=== PATIENT | female | born 1955 | race Caucasian/White ===

== ENCOUNTER 2016-03-19 17:56 | Inpatient (IN) ==
[2016-03-19] MEDS ORDERED: *HR* HYDROmorphone (PF) 1 MG/ML SYRINGE IV ONE (18:02)
[2016-03-19] MEDS ORDERED: Ketorolac 30 MG/ML VIAL IV ONE (18:02)
--- NOTE | 2016-03-19 18:04 | Emergency Department Note ---
Disposition Clinical Impression: Pneumonia Qualifiers: Pneumonia type: due to unspecified organism Laterality: bilateral Lung location : lower lobe of lung Qualified Code(s): J18.9 - Pneumonia, unspecified organism Thoracic back pain Qualifiers: Chronicity: acute Back pain laterality: bilateral Qualified Code(s): M54.6 - Pain in thoracic spine COPD (chronic obstructive pulmonary disease) Qualifiers: COPD type: COPD with acute lower respiratory infection Qualified Code(s): J44.0 - Chronic obstructive pulmonary disease with acute lower respiratory infection Disposition: Admitted As Inpatient Condition: Good Time of Disposition: 20:13 Back Pain HPI - General Chief Complaint: ED Back Pain/Injury Stated Complaint: back pain Time Seen by Provider: 03/19/16 18:01 Source: patient, EMS Mode of arrival: EMS Limitations: no limitations Nursing Notes Reviewed: Yes Vital Signs Reviewed: Yes - History of Present Illness Pt Subjective Complaint: back pain Onset (ago): hour(s) (Was present when she woke up this morning. She was fine when she went to bed.) Duration: constant Similar Symptoms Previously: No Location: thoracic spine Pain Severity: severe Quality: sharp Radiation: none Improves with: none Worsens with: movement, deep breaths/cough Context: other (Was fine when she went to bed. Awoke from sleep and pain was there. She does not note any injury.) Associated symptoms: Denies: numbness, weakness, fever, chills - Related Data Home Medications Medication Instructions Recorded Confirmed Albuterol Sulfate [Ventolin Hfa] 1 - 2 puff IH Q6H PRN 03/19/16 03/19/16 Alprazolam [Xanax 1 MG Tablet] 1 mg PO DAILY PRN 03/19/16 03/19/16 Fluticasone/Salmeterol [Advair Hfa 2 puff IH BID 03/19/16 03/19/16 230-21 Mcg Inhaler] Gabapentin [Neurontin] 300 mg PO TID 03/19/16 03/19/16 HydrOXYzine Pamoate [Vistaril] 25 mg PO TID PRN 03/19/16 03/19/16 Ibuprofen [Ibuprofen] 800 mg PO TID 03/19/16 03/19/16 Ipratropium/Albuterol Neb [Duoneb] 3 ml IH Q6HR 03/19/16 03/19/16 Losartan Potassium [Losartan 50 mg PO DAILY 03/19/16 03/19/16 Potassium] Metoprolol Tartrate [Lopressor] 50 mg PO BID 03/19/16 03/19/16 Oxygen 2 l .ROUTE AD 03/19/16 03/19/16 Roflumilast [Daliresp] 500 mcg PO DAILY 03/19/16 03/19/16 Allergies Allergy/AdvReac Type Severity Reaction Status Date / Time acetaminophen [From Vicodin] AdvReac Gastrointestinal Verified 03/19/16 23:42 Upset hydrocodone [From Vicodin] AdvReac Gastrointestinal Verified 03/19/16 23:42 Upset tramadol AdvReac Gastrointestinal Verified 03/19/16 23:42 Upset All systems ED: reviewed and negative except as stated. Constitutional: Denies: fever, chills ENT ED: Denies: ear pain, throat pain, congestion Cardiovascular: Denies: chest pain, palpitations Respiratory: Reports: dyspnea (But she thinks is because it hurts to breathe). Denies: cough Gastrointestinal: Denies: abdominal pain Musculoskeletal: Reports: back pain Integumentary: Denies: rash Past Medical History - Past Medical History Attestation: Yes The following information was validated with the patient. Source: patient, nursing notes reviewed Physical Exam - General Limitations: no limitations General appearance: alert, in distress (Seems to be in pain with breath and movement), obese - Head Head exam: atraumatic, normocephalic - Eye Eye exam: Present: normal appearance, PERRL - ENT ENT exam: normal exam, normal external ear exam - Neck Neck exam: Present: normal inspection, full ROM - Chest Chest inspection: Present: normal inspection, symmetric chest wall rise. Absent : tenderness - Respiratory Respiratory exam: Present: normal lung sounds bilaterally, wheezes (Faint and bilateral) - Cardiovascular Cardiovascular exam: Present: regular rate, normal rhythm, normal heart sounds - Abdominal Exam Abdominal exam: Present: soft, Non-Tender - Extremities Exam Extremities exam: Present: normal inspection, full ROM - Back Exam Back exam: Present: tenderness (Across upper back) - Neurological Exam Neurological exam: Present: alert, oriented X3 - Psychiatric Psychiatric exam: Present: normal affect, normal mood - Skin Skin exam: Present: warm, dry. Absent: rash Course Course Narrative: Patient is brought in with a complaint of shortness of breath and upper back pain. The story sounds like muscle skeletal back pain. She was fine when she went to bed but when she woke up she felt like her back was locked up. It hurt to breathe. Any movement causes increased pain. Pain is reproducible to palpation and with having her move here in the department. I order some pain medications for symptom relief and will reassess her breathing after the pain is controlled. Chest x-ray to rule out pneumothorax. EKG to assess cardiac issues. - Reevaluation(s) Reevaluation #1: Patient's feeling much better after pain medication. Breathing feels much better. Chest x-ray did not show any evidence of pneumothorax but there was some concern about pneumonia versus pulmonary edema. I went ahead and did a CT of the chest without contrast to delineate those abnormal chest x-ray findings. The patient is not presenting with with any obvious infectious disease symptoms. She is not having fevers or chills. She is having some cough but does not feel like instrument is worse than usual. She is a little bit more short of breath the usual but it is unclear as to whether that is not due to the pain of breathing. CAT scan however showed multilobar pneumonia. I entered into a sugar decision-making discussion with the patient. I talk with the patient about admission versus outpatient treatment as well as the risks and benefits of each. She says she has been through this a number of times and would just prefer to go home. So we will give her an IV dose of Levaquin and then discharge her to home on by mouth Levaquin. She was advised that if she is not better in 48 hours she has to come back and be seen at that time was to be admitted for treatment. She is also advised if she gets worse in any way before then that she has to come back right away and will need to be admitted. She is comfortable with that plan. She has breathing machine at home as well as home oxygen. Time: 20:09 Vital Signs Temperature 98.2 F 03/19/16 17:59 Pulse Rate 116 03/19/16 17:59 Respiratory Rate 26 03/19/16 17:59 Blood Pressure 112/54 03/19/16 17:59 O2 Sat by Pulse Oximetry 91 L 03/19/16 17:59 Temperature 97.5 F L 03/23/16 20:26 Pulse Rate 78 03/23/16 20:26 Respiratory Rate 16 03/23/16 20:54 Blood Pressure 168/88 03/23/16 20:26 O2 Sat by Pulse Oximetry 95 03/23/16 20:54 Oxygen Delivery Oxygen Delivery Nasal Cannula Back Pain/Injury - Medical Records Medical records reviewed: Yes I reviewed the patient's medical records. - Lab Data Result diagrams: 03/23/16 08:05 03/23/16 08:05 Lab Results 03/19/16 03/19/16 03/19/16 Range/Units 22:18 22:18 22:18 WBC 28.9 H (4.3-11.1) K/mcL RBC 5.25 H (3.82-4.97) M/mcL Hgb 16.5 H (11.5-15.4) g/dL Hct 50.0 H (35.3-44.9) % MCV 95.2 (83.0-100.0) fL MCH 31.4 (28.0-33.3) pg MCHC 33.0 (31.6-35.5) g/dL RDW 12.8 (11.5-14.5) % Plt Count 256 (140-400) K/mcL MPV 9.9 (9.4-12.4) fL Immature Gran % 6.0 H (0-4) % Seg Neutrophils % 83.4 % Lymphocytes % 3.3 % Monocytes % 6.9 % Eosinophils % 0.0 % Basophils % 0.4 % Neutrophils # 24.1 H (1.6-8.9) K/mcL Lymphocytes # 1.0 (0.6-4.6) K/mcL Monocytes # 2.0 H (0.0-1.3) K/mcL Eosinophils # 0.0 (0.0-0.6) K/mcL Basophils # 0.1 (0.0-0.2) K/mcL PT 13.4 H (9.4-12.1) Seconds INR 1.2 APTT (26.0-36.0) Seconds Sodium 138 (136-145) mEq/L Potassium 4.0 (3.5-4.5) mEq/L Chloride 109 (98-109) mEq/L Carbon Dioxide 20 (19-29) mEq/L BUN 16 (7-20) mg/dL Creatinine 1.37 H (0.57-1.11) mg/dL Est GFR ( Amer) 48 L (> 60) Est GFR (Non-Af Amer) 39 L (> 60) BUN/Creatinine Ratio 12 (6-26) Glucose 83 (70-99) mg/dL Calculated Osmolality 286 (280-300) Lactic Acid (0.5-2.2) mmol/L Calcium 9.4 (8.6-10.8) mg/dL Total Bilirubin 1.3 H (0.2-1.2) mg/dL AST 13 (5-34) Units/L ALT 14 (0-55) Units/L Alkaline Phosphatase 62 (38-126) Units/L Serum Total Protein 7.2 (6.0-8.3) g/dL Albumin 3.0 L (3.5-5.0) g/dL Globulin 4.2 H (2.4-3.5) g/dL Albumin/Globulin Ratio 0.7 L (1.1-2.2) 03/19/16 03/19/16 Range/Units 22:18 22:18 WBC (4.3-11.1) K/mcL RBC (3.82-4.97) M/mcL Hgb (11.5-15.4) g/dL Hct (35.3-44.9) % MCV (83.0-100.0) fL MCH (28.0-33.3) pg MCHC (31.6-35.5) g/dL RDW (11.5-14.5) % Plt Count (140-400) K/mcL MPV (9.4-12.4) fL Immature Gran % (0-4) % Seg Neutrophils % % Lymphocytes % % Monocytes % % Eosinophils % % Basophils % % Neutrophils # (1.6-8.9) K/mcL Lymphocytes # (0.6-4.6) K/mcL Monocytes # (0.0-1.3) K/mcL Eosinophils # (0.0-0.6) K/mcL Basophils # (0.0-0.2) K/mcL PT (9.4-12.1) Seconds INR APTT 39.3 H (26.0-36.0) Seconds Sodium (136-145) mEq/L Potassium (3.5-4.5) mEq/L Chloride (98-109) mEq/L Carbon Dioxide (19-29) mEq/L BUN (7-20) mg/dL Creatinine (0.57-1.11) mg/dL Est GFR ( Amer) (> 60) Est GFR (Non-Af Amer) (> 60) BUN/Creatinine Ratio (6-26) Glucose (70-99) mg/dL Calculated Osmolality (280-300) Lactic Acid 2.1 (0.5-2.2) mmol/L Calcium (8.6-10.8) mg/dL Total Bilirubin (0.2-1.2) mg/dL AST (5-34) Units/L ALT (0-55) Units/L Alkaline Phosphatase (38-126) Units/L Serum Total Protein (6.0-8.3) g/dL Albumin (3.5-5.0) g/dL Globulin (2.4-3.5) g/dL Albumin/Globulin Ratio (1.1-2.2) - Radiology Data Radiology results reviewed: Yes I reviewed the patient's radiology results. - EKG Data EKG attestation: Yes I reviewed and interpreted this EKG. EKG shows normal: sinus rhythm, axis, intervals, QRS complexes, ST-T waves Rate: tachycardia Interpretation: other (Sinus tachycardia without indication of ischemia) S.B.A.R. - S.B.A.R. Transition of Care: Patient signed out to me by Dr. Florez pending administration of antibiotics and disposition. See my note for further evaluation
[2016-03-19] MEDS ORDERED: Levofloxacin 750 MG/150 ML 750 MG/150 ML BAG IVPB ONE (20:13)
[2016-03-19] MEDS ORDERED: Ondansetron 4 MG/2 ML VIAL IV ONE (21:19)
[2016-03-19] MEDS ORDERED: 0.9 % Sodium Chloride 1,000 ML ONE ×2 (22:04→22:47)
[2016-03-19 22:27] LABS: Mean Platelet Volume 9.9 fL (9.4-12.4)
[2016-03-19 22:28] LABS: Basophils # 0.1 K/mcL (0.0-0.2); Basophils % 0.4 %; Hemoglobin 16.5 g/dL (11.5-15.4); Lymphocytes % 3.3 %; Mean Corpuscular Hemoglobin 31.4 pg (28.0-33.3); Mean Corpuscular Volume 95.2 fL (83.0-100.0); Monocytes % 6.9 %; Neutrophils # 24.1 K/mcL (1.6-8.9); Platelet Count 256 K/mcL (140-400); Red Blood Count 5.25 M/mcL (3.82-4.97); Red Cell Distribution Width 12.8 % (11.5-14.5); Segmented Neutrophils % 83.4 %
[2016-03-19 22:34] LABS: INR 1.2; Prothrombin Time 13.4 Seconds (9.4-12.1)
[2016-03-19 22:40] LABS: Albumin/Globulin Ratio 0.7 (1.1-2.2); Bilirubin,Total 1.3 mg/dL (0.2-1.2); Calcium 9.4 mg/dL (8.6-10.8); Globulin 4.2 g/dL (2.4-3.5); Total Protein 7.2 g/dL (6.0-8.3)
[2016-03-20] MEDS ORDERED: *HR* HYDROmorphone (PF) 1 MG/ML SYRINGE IVP ONE (00:32)
[2016-03-20] MEDS ORDERED: Ondansetron ODT 4 MG TAB.RAPDIS SL PRN (00:46)
[2016-03-20] MEDS ORDERED: Naloxone 0.4 MG/ML INJ IVP PRN (00:46)
--- NOTE | 2016-03-20 00:46 | Internal Med History&Physical ---
Date of Encounter: 03/20/16 Time of Encounter: 00:20 Assessment and Plan (1) Pneumonia Current visit: Yes Status: Acute Patient was given one dose of levofloxacin in the ED. Continue Levofloxacin Add Ceftriaxone Blood cultures drawn. (They were not ordered in the ED and were drawn after antibiotics were started). CT: multilobar pneumonia in the right lower and left lower lobes. WBC 28.9 Qualifiers: Pneumonia type: due to unspecified organism Laterality: bilateral Lung location: lower lobe of lung Qualified Code(s): J18.9 - Pneumonia, unspecified organism (2) COPD (chronic obstructive pulmonary disease) Current visit: Yes Status: Acute Acute on chronic respiratory failure with hypoxia. Acute exacerbation of COPD secondary to multilobar pneumonia. Patient is on 2L home oxygen. Continue oxygen supplementation. Solumedrol 40mg Q8hr Levofloxacin and ceftriaxone for pneumonia. Partial tachypnea is due to pain with inspiration. Pain control with morphine 2mg Q2hr as the patient has an allergy to acetaminophen and hydrocodone Qualifiers: COPD type: COPD with acute lower respiratory infection Qualified Code(s): J44.0 - Chronic obstructive pulmonary disease with acute lower respiratory infection (3) Sepsis Current visit: Yes Status: Acute Positive SIRS criteria with tachycardia >90 elevated respiratory rate >20 and WBC of 28.9. Source is pneumonia. Patient was given 2L fluid in the ED. History of CHF, unknown EF. Patient's chest XR demonstrates: mild pulmonary vascular congestion vs. pulmonary edema. Will hold additional fluids at this point for concerns of worsening pulmonary edema in the setting of pneumonia with COPD exacerbation and hypoxia. Qualifiers: Sepsis type: sepsis due to unspecified organism Qualified Code(s): A41.9 - Sepsis, unspecified organism (4) CHF (congestive heart failure) Current visit: Yes Status: Chronic Will hold additional fluids at this time. Unspecified type. Echocardiogram ordered. Qualifiers: Congestive heart failure type: unspecified congestive heart failure type Congestive heart failure chronicity: chronic Qualified Code(s): I50.9 - Heart failure, unspecified (5) Tobacco abuse Current visit: Yes Status: Acute Patient expressed trying to quit in the past and not being able to but has a willingness to try to quit again. Smoking cessation education ordered. Nicoderm patches ordered. (6) Thoracic back pain Current visit: Yes Status: Acute Pain control with morphine 2mg Q2HR pain was reproducible on exam. Patient expresses shallow breathing due to pain. Qualifiers: Chronicity: acute Back pain laterality: bilateral Qualified Code(s): M54.6 - Pain in thoracic spine (7) LIN (acute kidney injury) Current visit: Yes Status: Acute Elevated creatinine of 1.37 and no history of kidney disease. Patient received 2L fluids in the ED. Holding fluids at this time due to history of CHF and evidence of pulmonary edema on Xray. Will continue to monitor (8) DVT prophylaxis Current visit: Yes Status: Acute heparin 5000 units SQ Q8hr Internal Medicine - H&P: HPI Chief complaint: back pain Admitted From: Emergency Dept Plans for Post Hospital Care: Home History of present illness: Ms. Keita is a 60 year old female with PMH significant for COPD, HTN, spontaneous pneumothorax, and CHF who presented to the emergency department for shortness of breath and back pain. She states that she awoke this morning with pain in her upper back that was not present before she went to sleep. She denies any trauma. The pain is worse with movement and worse with deep inspiration. She states that the pain is causing her to take small shallow breaths. She denies having any cough, fevers, and chills. She uses 2L oxygen at home as needed. She smokes 1.5ppd and states that she did not smoke at all today because of her shortness of breath. She states she has had pneumonia in the past, but her most recent episode was approximately 3 years ago. She denies any recent hospitalizations and antibiotic use. She had expressed in the emergency department wanting to go home, but her shortness of breath worsened after her pain medication wore off and she began vomiting. She then decided to stay in the hospital for further treatment. Past Med Surg Social Fam HX - Past Medical History Medical history: CHF, COPD, hypertension Psychiatric history: no psych history - Past Surgical History Surgical History: cholecystectomy, other (Tumor removal from leg, tonsillectomy) - Social History Smoking Status: Current every day smoker Smokeless Tobacco Status: No Alcohol use: none Drug use: none - Family History Mother Hx Family Cardiac Disorders: Yes Hx Family Respiratory Disorders: Yes (COPD) Father Hx Family Endocrine Disorder: Yes (DM) Hx Family Medical Disorders: Yes (HTN) Internal Medicine - H&P: Meds Albuterol Sulfate [Ventolin Hfa] 1 - 2 puff IH Q6H PRN 03/19/16 [History] Alprazolam [Xanax 1 MG Tablet] 1 mg PO DAILY PRN 03/19/16 [History] Fluticasone/Salmeterol [Advair Hfa 230-21 Mcg Inhaler] 2 puff IH BID 03/19/16 [ History] Gabapentin [Neurontin] 300 mg PO TID 03/19/16 [History] HydrOXYzine Pamoate [Vistaril] 25 mg PO TID PRN 03/19/16 [History] Ibuprofen [Ibuprofen] 800 mg PO TID 03/19/16 [History] Ipratropium/Albuterol Neb [Duoneb] 3 ml IH Q6HR 03/19/16 [History] Losartan Potassium [Losartan Potassium] 50 mg PO DAILY 03/19/16 [History] Metoprolol Tartrate [Lopressor] 50 mg PO BID 03/19/16 [History] Oxygen 2 l .ROUTE AD 03/19/16 [History] Roflumilast [Daliresp] 500 mcg PO DAILY 03/19/16 [History] Allergies acetaminophen [From Vicodin] Adverse Reaction (Verified 03/19/16 23:42) Gastrointestinal Upset hydrocodone [From Vicodin] Adverse Reaction (Verified 03/19/16 23:42) Gastrointestinal Upset tramadol Adverse Reaction (Verified 03/19/16 23:42) Gastrointestinal Upset All Systems PM: A 10-system review of systems was performed and is negative for pertinent findings except as documented above in the HPI. - Constitutional Constitutional: no chills, no fever(s), no night sweats - EENT Eyes: no change in vision, no discharge, no pain, no photophobia Ears: no ear discharge, no ear pain, no tinnitus Nose, mouth and throat: no dysphagia, no nasal discharge, no neck pain, no sore throat - Cardiovascular Cardiovascular ROS IM: dyspnea, no chest pain, no diaphoresis, no lightheadedness, no palpitations, no syncope - Respiratory Respiratory: dyspnea, pain on inspiration, no cough, no hemoptysis, no wheezing , no excessive phlegm production - Gastrointestinal Gastrointestinal: vomiting, no abdominal pain, no diarrhea, no hematemesis, no hematochezia, no melena, no nausea - Genitourinary Genitourinary: no change in urinary stream, no dysuria, no flank pain, no hematuria - Musculoskeletal Musculoskeletal ROS IM: no numbness, no tingling - Integumentary Integumentary IM: no rash, no unusual bruising - Neurological Neurological ROS: no confusion, no convulsions, no focal weakness, no numbness, no tingling, no tremor(s) - Hematologic/Lymphatic Hematologic/Lymphatic: no easy bruising - Constitutional Vitals: Temp Pulse Resp BP Pulse Ox 97.4 F L 115 26 121/71 92 L 03/19/16 21:26 03/20/16 00:05 03/20/16 00:28 03/20/16 00:28 03/20/16 00:05 General appearance: Present: disheveled, mild distress, A&O X 3 - Head Head exam: Present: atraumatic, normocephalic - Eye Eye exam: Present: EOMI, PERRL, conjuntiva pink, sclera anicteric Pupils: Present: PERRL - Neck Neck exam general surgery: Present: supple, trachea midline. Absent: lymphadenopathy - Respiratory Respiratory exam: Present: prolonged expiratory phase, rhonchi (right lower and left lower lobes), wheezes (throughout), tachypnea. Absent: accessory muscle use, rales - Cardiovascular Cardiovascular exam: Present: +S1, +S2, tachycardia. Absent: diastolic murmur, gallop, rubs, systolic murmur - GI/Abdominal GI/Abdominal exam: Present: normal bowel sounds, soft, no peritoneal signs. Absent: distended, tenderness - Extremities Exam Extremities exam: Present: warm, radial pulses palpable and symetrical. Absent : calf tenderness, cyanotic, pedal edema - Neurological Exam Neurological exam: Present: CN II-XII intact, oriented X3, no focal deficits. Absent: pronater drift, facial droop, speech deficit - Skin Skin exam: Present: dry, intact Internal Med - H&P Results - Labs CBC & Chem 7: 03/19/16 22:18 03/19/16 22:18 Labs: Short CBC 03/19/16 Range/Units 22:18 WBC 28.9 H (4.3-11.1) K/mcL Hgb 16.5 H (11.5-15.4) g/dL Hct 50.0 H (35.3-44.9) % Plt Count 256 (140-400) K/mcL Neutrophils # 24.1 H (1.6-8.9) K/mcL BMP 03/19/16 22:18 Sodium 138 Potassium 4.0 Chloride 109 Carbon Dioxide 20 BUN 16 Creatinine 1.37 H Glucose 83 Calcium 9.4 Liver Function 03/19/16 Range/Units 22:18 Total Bilirubin 1.3 H (0.2-1.2) mg/dL AST 13 (5-34) Units/L ALT 14 (0-55) Units/L Alkaline Phosphatase 62 (38-126) Units/L Albumin 3.0 L (3.5-5.0) g/dL - Impressions ITS Impressions Chest X-Ray 03/19/16 18:01 IMPRESSION: 1. Left perihilar and lower lung opacity may represent atelectasis or infiltrate. 2. Mild pulmonary vascular congestion and pulmonary edema. D/ / Claudine Crabtree MD / Claudine Crabtree MD Interpreting Provider: Claudine Crabtree MD Chest CT 03/19/16 19:04 IMPRESSION: Findings compatible with multilobar pneumonia. D/ / Tuan Moses MD / Tuan Moses MD Interpreting Provider: Tuan Moses MD - Attending Attestation I examined this patient and my medical decision-making was reviewed with the [employer]/PA/Advanced Practice Nurse/Resident Physician. I agree with the documented findings, disposition and treatment plan as described except to the extent set forth below.
[2016-03-20] MEDS ORDERED: ALPRAZolam 1 MG TABLET PO PRN (00:58)
--- NOTE | 2016-03-20 02:19 | Emergency Department Note ---
START Narrative - START START: Patient received in signout from Dr. Nolan back at 9 PM. Patient was observed while receiving her levofloxacin for treatment of pneumonia. Patient became hypotensive but responded after administration of IV fluids. Patient denied any itching, did not have any rashes on evaluation, did not have any shortness of breath or facial swelling. Unlikely that this is due to a allergic reaction. Patient's tachycardia improved after administration of IV fluids. I added labs and lactate to be drawn in preparation for admission. Patient agreed to admission to the hospital for sepsis due to community-acquired pneumonia. Patient was admitted to Dr. Jordan Diagnosis: Sepsis due to community-acquired pneumonia Condition: Improved but guarded condition Dispo: Admit to hospital for further care and evaluation. Patient counseled regarding diagnosis, diagnostic results, treatment plan, and prescriptions to be given. Patient understood and agreed with proposed plan.
[2016-03-20] MEDS: *HR* Morphine 2 MG/ML SYRINGE IVP PRN ×3 (03:04→08:14)
[2016-03-20] MEDS: Ipratropium/Albuterol Neb 3 ML IH SCH ×6 (03:35→23:41)
[2016-03-20] MEDS: Nystatin POWDER 30 GM BOTTLE TP SCH ×4 (03:43→20:58)
[2016-03-20] MEDS: *HR* Heparin 5,000 UNIT/ML VIAL SQ SCH ×3 (05:58→20:58)
[2016-03-20] MEDS ORDERED: MethylPREDNISolone 40 MG/ML VIAL IVP SCH (08:00)
[2016-03-20] MEDS: MethylPREDNISolone 40 MG/ML VIAL IVP SCH ×3 (08:04→23:34)
[2016-03-20] MEDS: Gabapentin 300 MG CAPSULE PO SCH ×3 (08:07→20:57)
[2016-03-20] MEDS: Nicotine 14 MG PATCH.TD24 TD SCH (08:08)
[2016-03-20 09:02] LABS: ABG Base Excess -7.9 mEq/L (-2.0 to 3.0); ABG HCO3 17.7 mEQ/L (21-27); ABG Oxygen Saturation 83 % (95-98); ABG PCO2 36 mmHg (35-45); ABG PO2 53 mmHg (85-104); ABG TCO2 18.8 mEq/L (20-26)
[2016-03-20 09:05] LABS: Blood Gas FiO2 40 %
--- NOTE | 2016-03-20 09:46 | Event Note ---
Date of Encounter: 03/20/16 Time of Encounter: 09:37 patient admitted for severe sepsis 2/2 multifocal pneumonia and COPD exacerbation. h/o CHF, ECHO on 2013 shows LVEF of 60-65% with mild DD. ABG shows mild respiratory alkalosis with hypoxia, tachycardic and tcahypneic , RR of 30s. started on IV ceftriaxone and levoflox for CAP, will continue IV steroids, symbicort and duonebs. continue BIPAP support for now. will order ECHO. BP borderline, mild crepts at the bases, no additional IVF for now, lactate of 2.1 mental status alert and awake and orientedx3. will continue to watch the BP, maintaining sats >90% on BIPAP for now. remains high risk given acute hypoxic respiratory failure, low threshold to intubation and ICU transfer.
[2016-03-20] MEDS: *HR* Morphine 2 MG/ML SYRINGE IVP SCH ×4 (11:31→23:34)
--- NOTE | 2016-03-20 11:34 | Electrocardiograph Report ---
[facility] Test Date: 2016-03-19 Pat Name: Isamar Keita Department: 104 Room: 2N08 Gender: F Product Support Consultant: NICOLASA : [id number] Requested By: Victor M Florez Order Number: [id number] Reading MD: Victor M Herrera Measurements Intervals [place] Rate: 115 P: 57 MO: 197 QRS: 106 QRSD: 96 T: 46 QT: 304 QTc: 372 Interpretive Statements SINUS TACHYCARDIA INCOMPLETE RIGHT BUNDLE BRANCH BLOCK POSSIBLE RIGHT VENTRICULAR HYPERTROPHY Electronically Signed On 03-20-16 11:32:52 EST by Victor M Herrera
[2016-03-20] MEDS ORDERED: 0.9 % Sodium Chloride 250 ML IVC ONE (11:50)
[2016-03-20] MEDS ORDERED: 0.9 % Sodium Chloride 500 ML IVC ONE (11:53)
[2016-03-20] MEDS ORDERED: 0.9 % Sodium Chloride 500 ML ONE (11:59)
[2016-03-20] MEDS: Budesonide/Formoterol 160/4.5 MDI IH SCH ×2 (12:07→21:14)
[2016-03-20] MEDS: 0.9 % Sodium Chloride 1,000 ML IVC SCH (14:10)
[2016-03-20] MEDS: Levofloxacin 750 MG/150 ML 750 MG/150 ML BAG IVPB SCH (20:57)
[2016-03-21] MEDS: *HR* Morphine 2 MG/ML SYRINGE IVP SCH ×2 (04:06→07:19)
[2016-03-21] MEDS: Ipratropium/Albuterol Neb 3 ML IH SCH ×6 (04:15→23:16)
[2016-03-21 04:27] LABS: ABG Base Excess -6.4 mEq/L (-2.0 to 3.0); ABG Oxygen Saturation 93 % (95-98); ABG PCO2 48 mmHg (35-45); ABG PH 7.25 pH Units (7.32-7.45); ABG PO2 79 mmHg (85-104); ABG TCO2 22.5 mEq/L (20-26); Blood Gas FiO2 50 %
[2016-03-21] MEDS: *HR* Heparin 5,000 UNIT/ML VIAL SQ SCH ×3 (04:49→21:34)
[2016-03-21] MEDS: 0.9 % Sodium Chloride 1,000 ML IVC SCH ×2 (05:34→16:25)
[2016-03-21 07:19] LABS: Basophils % 0.2 %; Hematocrit 42.8 % (35.3-44.9); Immature Granulocytes % 1.2 % (0-4); Lymphocytes % 4.7 %; Mean Corpuscular HGB Conc 32.7 g/dL (31.6-35.5); Mean Corpuscular Hemoglobin 31.3 pg (28.0-33.3); Mean Corpuscular Volume 95.5 fL (83.0-100.0); Mean Platelet Volume 10.9 fL (9.4-12.4); Monocytes # 0.5 K/mcL (0.0-1.3); Monocytes % 2.3 %; Neutrophils # 18.5 K/mcL (1.6-8.9); Platelet Count 194 K/mcL (140-400); Red Blood Count 4.48 M/mcL (3.82-4.97); Segmented Neutrophils % 91.6 %
[2016-03-21 07:27] LABS: BUN/Creatinine Ratio 36 (6-26); Calcium 9.1 mg/dL (8.6-10.8); Carbon Dioxide 18 mEq/L (19-29); Chloride 108 mEq/L (98-109); Glucose 104 mg/dL (70-99); Osmolality,Calculated 288 (280-300); Potassium 4.3 mEq/L (3.5-4.5); Sodium 136 mEq/L (136-145); eGFR For African Americans > 60 (> 60); eGFR For Non-African Americans > 60 (> 60)
[2016-03-21 07:30] LABS: Blood Urea Nitrogen 29 mg/dL (7-20)
[2016-03-21] MEDS: Budesonide/Formoterol 160/4.5 MDI IH SCH ×3 (08:43→20:49)
[2016-03-21] MEDS ORDERED: *HR* LORazepam 1 MG TABLET PO PRN (08:44)
[2016-03-21 09:13] LABS: Platelet Estimate Normal (Normal)
[2016-03-21] MEDS: *HR* OxyCODONE Immed Rel 15 MG TABLET PO PRN ×2 (09:37→18:06)
[2016-03-21] MEDS: Nicotine 14 MG PATCH.TD24 TD SCH (09:37)
[2016-03-21] MEDS: Gabapentin 300 MG CAPSULE PO SCH ×3 (09:37→21:34)
[2016-03-21] MEDS: MethylPREDNISolone 40 MG/ML VIAL IVP SCH ×3 (09:38→23:14)
[2016-03-21] MEDS: Nystatin POWDER 30 GM BOTTLE TP SCH ×3 (09:39→23:16)
--- NOTE | 2016-03-21 10:01 | ECHO - Doppler Report ---
Echocardiogram Name: Isamar Keita Date of Study: 03/21/2016 Date: 1955 Ht: 61.0 in Medical Record#: [id number] Age: 60 Wt: 296.0 lb Gender: Female BSA: 2.23 Order #: [id number] Location: [facility] Room #: 2N08 Reading Physician: Galdino Talamantes MD, [facility] Senior Accounting Specialist: Tony Paulson Ordering Physician: Carlos A Mckeon DO Primary Physician: Jun Marie M.D. Indications: Shortness of breath, Pneumonia, Pulmonary congestion Impressions: Poor quality study due to body habitus and clinical status. Patient on BIPAP and sitting up for the exam. Normal LV size and systolic function, LVEF 60-65%. Not all myocardial segments were well visualized. Right ventricle was not well visualized. Appears grossly normal in size and function. No evidence of significant valvular dysfunction on limited evaluation. Unable to estimate RVSP due to lack of TR jet. Findings: Study Quality * Poor quality study due to body habitus and clinical status. Patient on BIPAP and sitting up for the exam. Left Ventricle * Normal LV size and systolic function, LVEF 60-65%. Not all myocardial segments were well visualized. * Normal LV wall thickness. * Indeterminate diastolic function. ECG Findings * Normal sinus rhythm. Right Ventricle * Right ventricle was not well visualized. Appears grossly normal in size and function. Left Atrium * Left atrium is not well visualized. Right Atrium * Right atrium is not well visualized. Aorta * Normally sized aortic root. Pericardium * There is no pericardial effusion present. IVC * The IVC was not visualized. Aortic Valve * Trileaflet aortic valve. * Mildly sclerotic aortic valve leaflets. * Suboptimal evalution. No evidence of stenosis or regurgitation. Mitral Valve * Mild mitral annular calcification * Suboptimal evalution. No evidence of stenosis or regurgitation. Tricuspid Valve * Normal tricuspid valve structure. * No tricuspid stenosis. * Trace tricuspid regurgitation. * Unable to estimate RVSP due to lack of TR jet. Pulmonic Valve * Pulmonic valve not well visualized. * No pulmonic stenosis. * No pulmonic regurgitation. History Hypertension Valvular Disease 01/21/14 a Previous Echo was performed. Measurements: BP: 106/ 57 2D Normal Values RVIDd: 3.10 cm IVSd: 1.00 cm 0.6 - 1.0 cm LVIDd: 5.00 cm 3.7 - 5.6 cm LVPWd: 1.00 cm 0.6 - 1.1 cm LVIDs: 3.40 cm 1.5 - 3.6 cm AO: 3.00 cm < 4.0 cm Updated by Galdino Talamantes MD, [facility] on 03/21/2016 9:53:38 AM electronically signed on 03/21/2016 9:57:08 AM with status of Final
--- NOTE | 2016-03-21 15:43 | Internal Med Progress Note ---
Date of Encounter: 03/21/16 Time of Encounter: 15:40 - Assessment and plan (1) Severe sepsis Current Visit: Yes Status: Resolved Assessment and plan: Secondary to multifocal pneumonia on presentation. Vitals relatively stable, lactate and presentation was 2.1. LIN has resolved. (2) LIN (acute kidney injury) Current Visit: Yes Status: Acute Assessment and plan: LIN possibele 2/2 severe sepsis, has resolved now. Avoid nephrotoxic agents. (3) Pneumonia Current Visit: Yes Status: Acute Assessment and plan: Bilateral multifocal pneumonia. blood cultures do not show any growth. Treated With ceftriaxone and azithro. Remains afebrile, leucocytosis has improved. Qualifiers: Pneumonia type: due to unspecified organism Laterality: bilateral Lung location: lower lobe of lung Qualified Code(s): J18.9 - Pneumonia, unspecified organism (4) Tobacco abuse Current Visit: Yes Status: Acute - Time Spent With Patient 25 - 35 minutes - Subjective Interval history: Patient admitted for acute tube feedings as admission and multifocal pneumonia. Today much better, off BiPAP and was able to tolerate high flow nasal cannula, saturating 92-93%. Denies any chest pain or palpitations, no nausea or vomiting. Only can alert, answering questions appropriately. - Constitutional Vitals: Temp Pulse Resp BP Pulse Ox 97.8 F 82 14 101/42 94 L 03/21/16 12:30 03/21/16 14:00 03/21/16 14:00 03/21/16 14:00 03/21/16 14:00 General appearance: Present: disheveled, A&O X 3 Exam: Neck supple. Chest bilateral occasional wheezing, decreased breath sounds at the bases bilateral. Abdomen soft, nontender, bowel sounds are present. Extremities no edema. Neuro alert and awake, oriented 3, no focal neurological deficit. Internal Medicine: Result - Labs CBC & Chem 7: 03/21/16 06:07 03/21/16 06:07 Labs: Short CBC 03/21/16 Range/Units 06:07 WBC 20.2 H (4.3-11.1) K/mcL Hgb 14.0 D (11.5-15.4) g/dL Hct 42.8 (35.3-44.9) % Plt Count 194 (140-400) K/mcL Neutrophils # 18.5 H (1.6-8.9) K/mcL BMP 03/21/16 06:07 Sodium 136 Potassium 4.3 Chloride 108 Carbon Dioxide 18 L BUN 29 H D Creatinine 0.81 Glucose 104 H Calcium 9.1 - ABG Interpretation ABG results: ABG ABG pH 7.25 pH Units (7.32-7.45) L 03/21/16 04:15 ABG pCO2 48 mmHg (35-45) H 03/21/16 04:15 ABG pO2 79 mmHg (85-104) L 03/21/16 04:15 ABG O2 Saturation 93 % (95-98) L 03/21/16 04:15 PT/INR, D-dimer PT 13.4 Seconds (9.4-12.1) H 03/19/16 22:18 Consult Discharge Plan - Plan Referrals: Jun Marie MD [Primary Care Provider] -
[2016-03-21] MEDS: Levofloxacin 750 MG/150 ML 750 MG/150 ML BAG IVPB SCH (21:34)
[2016-03-22] MEDS: Ipratropium/Albuterol Neb 3 ML IH SCH ×7 (04:01→23:21)
[2016-03-22] MEDS: *HR* OxyCODONE Immed Rel 15 MG TABLET PO PRN ×2 (04:38→16:31)
[2016-03-22 05:48] LABS: Basophils % 0.1 %; Hematocrit 43.8 % (35.3-44.9); Immature Granulocytes % 0.4 % (0-4); Lymphocytes # 0.7 K/mcL (0.6-4.6); Mean Corpuscular Hemoglobin 30.4 pg (28.0-33.3); Mean Corpuscular Volume 95.2 fL (83.0-100.0); Monocytes # 0.6 K/mcL (0.0-1.3); Monocytes % 3.3 %; Neutrophils # 15.3 K/mcL (1.6-8.9); Platelet Count 243 K/mcL (140-400); Red Cell Distribution Width 12.9 % (11.5-14.5); Segmented Neutrophils % 92.2 %
[2016-03-22 06:07] LABS: BUN/Creatinine Ratio 32 (6-26); Blood Urea Nitrogen 24 mg/dL (7-20); Calcium 9.3 mg/dL (8.6-10.8); Carbon Dioxide 22 mEq/L (19-29); Chloride 109 mEq/L (98-109); Glucose 147 mg/dL (70-99); Osmolality,Calculated 295 (280-300); Potassium 4.4 mEq/L (3.5-4.5); Sodium 139 mEq/L (136-145); eGFR For African Americans > 60 (> 60); eGFR For Non-African Americans > 60 (> 60)
[2016-03-22] MEDS: *HR* Heparin 5,000 UNIT/ML VIAL SQ SCH ×3 (06:33→20:45)
[2016-03-22] MEDS: MethylPREDNISolone 40 MG/ML VIAL IVP SCH ×2 (08:42→15:22)
[2016-03-22] MEDS: 0.9 % Sodium Chloride 1,000 ML IVC SCH (08:42)
[2016-03-22] MEDS: Gabapentin 300 MG CAPSULE PO SCH ×3 (08:43→20:45)
[2016-03-22] MEDS: Nicotine 14 MG PATCH.TD24 TD SCH (08:44)
[2016-03-22] MEDS: Nystatin POWDER 30 GM BOTTLE TP SCH ×3 (08:44→21:01)
[2016-03-22] MEDS: Budesonide/Formoterol 160/4.5 MDI IH SCH ×3 (10:12→19:53)
--- NOTE | 2016-03-22 15:27 | Internal Med Progress Note ---
Date of Encounter: 03/22/16 Time of Encounter: 15:24 - Assessment and plan (1) Severe sepsis Current Visit: Yes Status: Resolved Assessment and plan: Secondary to multifocal pneumonia on presentation. Vitals relatively stable, lactate and presentation was 2.1. LIN has resolved. (2) LIN (acute kidney injury) Current Visit: Yes Status: Acute Assessment and plan: LIN possibele 2/2 severe sepsis, has resolved now. Avoid nephrotoxic agents. (3) Pneumonia Current Visit: Yes Status: Acute Assessment and plan: Bilateral multifocal pneumonia. blood cultures do not show any growth. Treated With ceftriaxone and azithro. Remains afebrile, leucocytosis has improved. Qualifiers: Pneumonia type: due to unspecified organism Laterality: bilateral Lung location: lower lobe of lung Qualified Code(s): J18.9 - Pneumonia, unspecified organism (4) Tobacco abuse Current Visit: Yes Status: Acute (5) Acute respiratory failure with hypoxia Current Visit: Yes Status: Acute Assessment and plan: most likely 2/2 multi focal pneumonia with underlying COPD. still requiring high flow o2, intermittent BIPAP. will slowly wean o2. continue duonebs, incentive spirometry, chest physio. - Time Spent With Patient 25 - 35 minutes - Subjective Interval history: Patient admitted for severe sepsis and multifocal pneumonia. Today much better, off BiPAP and able to tolerate high flow nasal cannula, saturating 92-93%. Denies any chest pain or palpitations, no nausea or vomiting. awake and alert, answering questions appropriately. - Constitutional Vitals: Temp Pulse Resp BP Pulse Ox 98.1 F 84 19 133/66 95 03/22/16 12:41 03/22/16 12:41 03/22/16 12:41 03/22/16 12:41 03/22/16 10:36 General appearance: Present: disheveled, A&O X 3 Exam: neck- supple chest- b/l occasional wheezing, no creptns cvs- s1 and s2, no mr//g abd-soft, obese, non tender, bs are present ext- no edema neuro- alert and awake, no focal neuro deficits Internal Medicine: Result - Labs CBC & Chem 7: 03/22/16 04:24 03/22/16 04:24 Labs: Short CBC 03/22/16 Range/Units 04:24 WBC 16.6 H (4.3-11.1) K/mcL Hgb 14.0 (11.5-15.4) g/dL Hct 43.8 (35.3-44.9) % Plt Count 243 (140-400) K/mcL Neutrophils # 15.3 H (1.6-8.9) K/mcL BMP 03/22/16 04:24 Sodium 139 Potassium 4.4 Chloride 109 Carbon Dioxide 22 BUN 24 H Creatinine 0.76 Glucose 147 H Calcium 9.3 - ABG Interpretation ABG results: ABG ABG pH 7.25 pH Units (7.32-7.45) L 03/21/16 04:15 ABG pCO2 48 mmHg (35-45) H 03/21/16 04:15 ABG pO2 79 mmHg (85-104) L 03/21/16 04:15 ABG O2 Saturation 93 % (95-98) L 03/21/16 04:15 PT/INR, D-dimer PT 13.4 Seconds (9.4-12.1) H 03/19/16 22:18 Consult Discharge Plan - Plan Referrals: Jun Marie MD [Primary Care Provider] -
[2016-03-22] MEDS: Levofloxacin 750 MG/150 ML 750 MG/150 ML BAG IVPB SCH (20:44)
[2016-03-23] MEDS: MethylPREDNISolone 40 MG/ML VIAL IVP SCH ×4 (00:14→23:46)
[2016-03-23] MEDS: Ipratropium/Albuterol Neb 3 ML IH SCH ×6 (05:13→23:03)
[2016-03-23] MEDS: *HR* Heparin 5,000 UNIT/ML VIAL SQ SCH ×3 (05:23→22:35)
[2016-03-23 08:23] LABS: Basophils % 0.2 %; Hemoglobin 15.3 g/dL (11.5-15.4); Immature Granulocytes % 0.6 % (0-4); Lymphocytes # 0.9 K/mcL (0.6-4.6); Lymphocytes % 7.6 %; Mean Corpuscular HGB Conc 32.6 g/dL (31.6-35.5); Mean Corpuscular Volume 95.3 fL (83.0-100.0); Mean Platelet Volume 10.6 fL (9.4-12.4); Monocytes # 0.8 K/mcL (0.0-1.3); Monocytes % 6.1 %; Neutrophils # 10.5 K/mcL (1.6-8.9); Platelet Count 248 K/mcL (140-400); Red Blood Count 4.93 M/mcL (3.82-4.97); Red Cell Distribution Width 12.8 % (11.5-14.5); Segmented Neutrophils % 85.5 %
[2016-03-23 08:34] LABS: BUN/Creatinine Ratio 32 (6-26); Blood Urea Nitrogen 23 mg/dL (7-20); Calcium 9.4 mg/dL (8.6-10.8); Carbon Dioxide 27 mEq/L (19-29); Chloride 108 mEq/L (98-109); Glucose 133 mg/dL (70-99); Osmolality,Calculated 300 (280-300); Potassium 4.7 mEq/L (3.5-4.5); Sodium 142 mEq/L (136-145); eGFR For African Americans > 60 (> 60); eGFR For Non-African Americans > 60 (> 60)
[2016-03-23] MEDS: Budesonide/Formoterol 160/4.5 MDI IH SCH ×2 (08:35→20:51)
[2016-03-23] MEDS: Gabapentin 300 MG CAPSULE PO SCH ×3 (08:49→20:17)
[2016-03-23] MEDS: Nicotine 14 MG PATCH.TD24 TD SCH (08:50)
[2016-03-23] MEDS: Nystatin POWDER 30 GM BOTTLE TP SCH ×3 (08:50→20:24)
[2016-03-23] MEDS: *HR* OxyCODONE Immed Rel 15 MG TABLET PO PRN ×2 (08:52→20:17)
--- NOTE | 2016-03-23 17:45 | Internal Med Progress Note ---
Date of Encounter: 03/23/16 Time of Encounter: 17:43 - Assessment and plan (1) Severe sepsis Current Visit: Yes Status: Resolved Assessment and plan: Secondary to multifocal pneumonia on presentation. Vitals relatively stable, lactate and presentation was 2.1. LIN has resolved. (2) LIN (acute kidney injury) Current Visit: Yes Status: Acute Assessment and plan: LIN possibele 2/2 severe sepsis, has resolved now. Avoid nephrotoxic agents. (3) Pneumonia Current Visit: Yes Status: Acute Assessment and plan: Bilateral multifocal pneumonia. blood cultures do not show any growth. Treated With ceftriaxone and azithro. Remains afebrile, leucocytosis has improved. Qualifiers: Pneumonia type: due to unspecified organism Laterality: bilateral Lung location: lower lobe of lung Qualified Code(s): J18.9 - Pneumonia, unspecified organism (4) Tobacco abuse Current Visit: Yes Status: Acute (5) Acute respiratory failure with hypoxia Current Visit: Yes Status: Acute Assessment and plan: most likely 2/2 multi focal pneumonia with underlying COPD. still requiring high flow o2, intermittent BIPAP. will slowly wean o2. continue duonebs, incentive spirometry, chest physio. - Time Spent With Patient 25 - 35 minutes - Subjective Interval history: Patient admitted for severe sepsis and multifocal pneumonia. Today much better, off BiPAP and able to tolerate high flow nasal cannula,now at 8l saturating 92-93%. Denies any chest pain or palpitations, no nausea or vomiting. awake and alert, answering questions appropriately. - Constitutional Vitals: Temp Pulse Resp BP Pulse Ox 98.4 F 80 18 168/88 95 03/23/16 15:13 03/23/16 17:15 03/23/16 17:15 03/23/16 15:13 03/23/16 16:35 General appearance: Present: A&O X 3 Exam: neck- supple chest- b/l clear, no added sounds CVS-s1 and s2, no m/r/g abd-soft, non tender, bs are present ext-no edmea Internal Medicine: Result - Labs CBC & Chem 7: 03/23/16 08:05 03/23/16 08:05 Labs: Short CBC 03/23/16 Range/Units 08:05 WBC 12.3 H (4.3-11.1) K/mcL Hgb 15.3 (11.5-15.4) g/dL Hct 47.0 H (35.3-44.9) % Plt Count 248 (140-400) K/mcL Neutrophils # 10.5 H (1.6-8.9) K/mcL BMP 03/23/16 08:05 Sodium 142 Potassium 4.7 H Chloride 108 Carbon Dioxide 27 BUN 23 H Creatinine 0.73 Glucose 133 H Calcium 9.4 - ABG Interpretation ABG results: ABG ABG pH 7.25 pH Units (7.32-7.45) L 03/21/16 04:15 ABG pCO2 48 mmHg (35-45) H 03/21/16 04:15 ABG pO2 79 mmHg (85-104) L 03/21/16 04:15 ABG O2 Saturation 93 % (95-98) L 03/21/16 04:15 PT/INR, D-dimer PT 13.4 Seconds (9.4-12.1) H 03/19/16 22:18 Consult Discharge Plan - Plan Referrals: Jun Marie MD [Primary Care Provider] - 04/02/16 3:15 pm ()
[2016-03-23] MEDS: Levofloxacin 750 MG/150 ML 750 MG/150 ML BAG IVPB SCH (20:17)
[2016-03-24] MEDS: Ipratropium/Albuterol Neb 3 ML IH SCH ×5 (03:41→21:06)
[2016-03-24] MEDS: *HR* Heparin 5,000 UNIT/ML VIAL SQ SCH ×3 (05:37→21:39)
[2016-03-24] MEDS: Budesonide/Formoterol 160/4.5 MDI IH SCH ×2 (07:41→20:56)
[2016-03-24 09:02] LABS: Basophils # 0.1 K/mcL (0.0-0.2); Basophils % 0.6 %; Hematocrit 46.8 % (35.3-44.9); Hemoglobin 15.5 g/dL (11.5-15.4); Immature Granulocytes % 1.5 % (0-4); Lymphocytes # 1.4 K/mcL (0.6-4.6); Lymphocytes % 13.3 %; Mean Corpuscular HGB Conc 33.1 g/dL (31.6-35.5); Mean Corpuscular Volume 93.6 fL (83.0-100.0); Mean Platelet Volume 10.4 fL (9.4-12.4); Monocytes # 0.7 K/mcL (0.0-1.3); Neutrophils # 7.9 K/mcL (1.6-8.9); Platelet Count 252 K/mcL (140-400); Red Cell Distribution Width 12.7 % (11.5-14.5); Segmented Neutrophils % 77.6 %
[2016-03-24 09:15] LABS: BUN/Creatinine Ratio 38 (6-26); Blood Urea Nitrogen 27 mg/dL (7-20); Calcium 9.1 mg/dL (8.6-10.8); Carbon Dioxide 28 mEq/L (19-29); Chloride 108 mEq/L (98-109); Glucose 157 mg/dL (70-99); Osmolality,Calculated 304 (280-300); Potassium 4.3 mEq/L (3.5-4.5); Sodium 143 mEq/L (136-145); eGFR For African Americans > 60 (> 60); eGFR For Non-African Americans > 60 (> 60)
[2016-03-24] MEDS: Nicotine 14 MG PATCH.TD24 TD SCH (09:21)
[2016-03-24] MEDS: predniSONE 20 MG TABLET PO SCH (09:23)
[2016-03-24] MEDS: Gabapentin 300 MG CAPSULE PO SCH ×3 (09:23→21:39)
[2016-03-24] MEDS: Nystatin POWDER 30 GM BOTTLE TP SCH ×3 (09:23→21:40)
[2016-03-24] MEDS: *HR* OxyCODONE Immed Rel 15 MG TABLET PO PRN ×2 (09:27→21:39)
--- NOTE | 2016-03-24 16:09 | Internal Med Progress Note ---
Date of Encounter: 03/24/16 Time of Encounter: 16:07 - Assessment and plan (1) Severe sepsis Current Visit: Yes Status: Resolved Assessment and plan: Secondary to multifocal pneumonia on presentation. Vitals relatively stable, lactate and presentation was 2.1. LIN has resolved. (2) LIN (acute kidney injury) Current Visit: Yes Status: Acute Assessment and plan: LIN possibele 2/2 severe sepsis, has resolved now. Avoid nephrotoxic agents. (3) Pneumonia Current Visit: Yes Status: Acute Assessment and plan: Bilateral multifocal pneumonia. blood cultures do not show any growth. Treated With ceftriaxone and azithro. Remains afebrile, leucocytosis has improved. Qualifiers: Pneumonia type: due to unspecified organism Laterality: bilateral Lung location: lower lobe of lung Qualified Code(s): J18.9 - Pneumonia, unspecified organism (4) Tobacco abuse Current Visit: Yes Status: Acute (5) Acute respiratory failure with hypoxia Current Visit: Yes Status: Acute Assessment and plan: most likely 2/2 multi focal pneumonia with underlying COPD. still requiring high flow o2, intermittent BIPAP. will slowly wean o2, now requiring 4-6 l of o2. continue duonebs, incentive spirometry, chest physio. - Time Spent With Patient 25 - 35 minutes - Subjective Interval history: Patient admitted for severe sepsis and multifocal pneumonia. Today much better, off BiPAP and able to tolerate high flow nasal cannula,now at4-6 saturating 92-93%. Denies any chest pain or palpitations, no nausea or vomiting. awake and alert, answering questions appropriately. possible dc tomm. - Constitutional Vitals: Temp Pulse Resp BP Pulse Ox 97.3 F L 64 18 160/74 94 L 03/24/16 15:31 03/24/16 15:31 03/24/16 15:31 03/24/16 15:31 03/24/16 15:31 General appearance: Present: A&O X 3 Exam: neck- supple chest- b/l clear, no added sounds CVS-s1 and s2, no m/r/g abd-soft, non tender, bs are present ext-no edmea Internal Medicine: Result - Labs CBC & Chem 7: 03/24/16 08:50 03/24/16 08:50 Labs: Short CBC 03/24/16 Range/Units 08:50 WBC 10.2 (4.3-11.1) K/mcL Hgb 15.5 H (11.5-15.4) g/dL Hct 46.8 H (35.3-44.9) % Plt Count 252 (140-400) K/mcL Neutrophils # 7.9 (1.6-8.9) K/mcL BMP 03/24/16 08:50 Sodium 143 Potassium 4.3 Chloride 108 Carbon Dioxide 28 BUN 27 H Creatinine 0.72 Glucose 157 H Calcium 9.1 - ABG Interpretation ABG results: ABG ABG pH 7.25 pH Units (7.32-7.45) L 03/21/16 04:15 ABG pCO2 48 mmHg (35-45) H 03/21/16 04:15 ABG pO2 79 mmHg (85-104) L 03/21/16 04:15 ABG O2 Saturation 93 % (95-98) L 03/21/16 04:15 PT/INR, D-dimer PT 13.4 Seconds (9.4-12.1) H 03/19/16 22:18 Consult Discharge Plan - Plan Referrals: Jun Marie MD [Primary Care Provider] - 04/02/16 3:15 pm ()
[2016-03-24] MEDS ORDERED: levoFLOXacin 750 MG TABLET PO SCH (21:00)
[2016-03-25] MEDS: Ipratropium/Albuterol Neb 3 ML IH SCH ×5 (00:14→16:23)
[2016-03-25] MEDS: *HR* Heparin 5,000 UNIT/ML VIAL SQ SCH ×2 (06:57→15:29)
[2016-03-25] MEDS: Budesonide/Formoterol 160/4.5 MDI IH SCH (08:25)
[2016-03-25] MEDS: predniSONE 20 MG TABLET PO SCH (08:46)
[2016-03-25] MEDS: Gabapentin 300 MG CAPSULE PO SCH ×2 (08:46→15:29)
[2016-03-25] MEDS: *HR* OxyCODONE Immed Rel 15 MG TABLET PO PRN (08:47)
[2016-03-25] MEDS: Nystatin POWDER 30 GM BOTTLE TP SCH ×2 (08:47→15:30)
[2016-03-25] MEDS: Nicotine 14 MG PATCH.TD24 TD SCH (08:47)
[2016-03-25 15:29] VITALS: BP 158/71
--- NOTE | 2016-03-25 16:36 | Discharge Summary ---
Date of Encounter: 03/25/16 Time of Encounter: 16:33 - Discharge Diagnosis (1) Severe sepsis Priority: Primary Status: Resolved (2) LIN (acute kidney injury) Priority: Secondary Status: Resolved (3) Pneumonia Priority: Primary Status: Acute Qualifiers: Pneumonia type: due to unspecified organism Laterality: bilateral Lung location: lower lobe of lung Qualified Code(s): J18.9 - Pneumonia, unspecified organism (4) Tobacco abuse Priority: Secondary Status: Acute (5) Acute respiratory failure with hypoxia Priority: Primary Status: Acute - Discharge Medications Prescriptions: GuaiFENesin ER [Mucinex] 600 mg PO BID 10 Days Hydrocodone/Acetaminophen [[place] 5-325 Tablet] 1 tab PO Q6H PRN #30 tab PRN Reason: Pain Levofloxacin 750 mg PO Q24H #5 tablet PredniSONE 10 mg PO DAILY #65 tablet Tiotropium [Spiriva] 18 mcg IH 0700 #30 capsule Home Medications: Albuterol Sulfate [Ventolin Hfa] 1 - 2 puff IH Q6H PRN 03/19/16 [History] Alprazolam [Xanax 1 MG Tablet] 1 mg PO DAILY PRN 03/19/16 [History] Fluticasone/Salmeterol [Advair Hfa 230-21 Mcg Inhaler] 2 puff IH BID 03/19/16 [ History] Gabapentin [Neurontin] 300 mg PO TID 03/19/16 [History] HydrOXYzine Pamoate [Vistaril] 25 mg PO TID PRN 03/19/16 [History] Ibuprofen 800 mg PO TID 03/19/16 [History] Ipratropium/Albuterol Neb [Duoneb] 3 ml IH Q6HR 03/19/16 [History] Losartan Potassium 50 mg PO DAILY 03/19/16 [History] Metoprolol Tartrate [Lopressor] 50 mg PO BID 03/19/16 [History] Oxygen 2 l .ROUTE AD 03/19/16 [History] Roflumilast [Daliresp] 500 mcg PO DAILY 03/19/16 [History] GuaiFENesin ER [Mucinex] 600 mg PO BID 10 Days 03/25/16 [Rx] Hydrocodone/Acetaminophen [[place] 5-325 Tablet] 1 tab PO Q6H PRN #30 tab [Rx] Levofloxacin 750 mg PO Q24H #5 tablet 03/25/16 [Rx] PredniSONE 10 mg PO DAILY #65 tablet 03/25/16 [Rx] Tiotropium [Spiriva] 18 mcg IH 0700 #30 capsule 03/25/16 [Rx] Allergies/Adverse Reactions: Allergies acetaminophen [From Vicodin] Adverse Reaction (Verified 03/19/16 23:42) Gastrointestinal Upset hydrocodone [From Vicodin] Adverse Reaction (Verified 03/19/16 23:42) Gastrointestinal Upset tramadol Adverse Reaction (Verified 03/19/16 23:42) Gastrointestinal Upset Date of admission: 03/20/16 01:46 Primary care physician: Jun Marie MD Consults: 03/20/16 02:51 Consult to Self Pay Collector [CONS] Routine Reason for SW Consult: HAS [facility] HOME O2 Discharging clinician: Lopez Arnold Anticipated date of discharge: 03/25/16 - Patient Status Disposition: Home, Self-Care Condition: Fair Functional capacity at discharge: independent ambulation Overall status at discharge: patient is back to baseline - Discharge Instructions Instructions: Hydrocodone/Acetaminophen (By mouth), Prednisone (By mouth), Guaifenesin (By mouth), Levofloxacin (By mouth), Tiotropium (By breathing), Cigarette Smoking and Your Health (GEN), Pneumonia (DC) Follow Up With: Jun Marie MD [Primary Care Provider] - 04/02/16 3:15 pm () Additional Instructions: WEAR OXYGEN AT ALL TIMES. 4L NASAL CANNULA. RESUME ACTIVITIES AND DIET TOLERATED. - Diet and Activity Activity: resume usual activities as tolerated, wear oxygen at all times Diet: advance to your usual diet Interval History: Ms. Keita is a 60 year old female with PMH significant for COPD, HTN, spontaneous pneumothorax, and CHF who presented to the emergency department for shortness of breath and back pain. She states that she awoke this morning with pain in her upper back that was not present before she went to sleep. She denies any trauma. The pain is worse with movement and worse with deep inspiration. She states that the pain is causing her to take small shallow breaths. She denies having any cough, fevers, and chills. She uses 2L oxygen at home as needed. She smokes 1.5ppd and states that she did not smoke at all today because of her shortness of breath. She states she has had pneumonia in the past, but her most recent episode was approximately 3 years ago. She denies any recent hospitalizations and antibiotic use. She had expressed in the emergency department wanting to go home, but her shortness of breath worsened after her pain medication wore off and she began vomiting. She then decided to stay in the hospital for further treatment. Hospital course: she was admitted for Acute on chronic respiratory failure with hypoxia. Acute exacerbation of COPD and sepsis secondary to multilobar pneumonia. Patient is on 2L home oxygen. she was started on iV solumedrol, Levofloxacin and ceftriaxone for pneumonia and BIPAP initially given acute respiratory distress. She improved gradually on the above treatment, was gradually able to wean her off the BiPAP. Her leukocytosis is improved and the sepsis resolved, she also had mild LIN on presentation which later resolved. She improved clinically and we were able to wean her oxygen down to 4-5 L with which she was saturating 90-92% at rest. She remains afebrile and hemodynamically stable. She is being discharged today on oral antibiotics, tapering dose of steroids and oxygen at 4 L continuous until further evaluation by PCP. Time spent discussing smoking cessation with patient: more than 10 minutes - Time Spent with Patient Total time spent providing and/or coordinating discharge services: Greater than 30 minutes - Constitutional Vitals: Temp Pulse Resp BP Pulse Ox 98.0 F 73 20 158/71 90 L 03/25/16 15:21 03/25/16 15:48 03/25/16 15:21 03/25/16 15:21 03/25/16 15:21 General appearance: Present: A&O X 3 Exam: General appearance: Present: disheveled, mild distress, A&O X 3 - Head Head exam: Present: atraumatic, normocephalic - Eye Eye exam: Present: EOMI, PERRL, conjuntiva pink, sclera anicteric Pupils: Present: PERRL - Neck Neck exam general surgery: Present: supple, trachea midline. Absent: lymphadenopathy - Respiratory Respiratory exam: Present: occasional wheezing, no crepitations. - Cardiovascular Cardiovascular exam: Present: +S1, +S2, tachycardia. Absent: diastolic murmur, gallop, rubs, systolic murmur - GI/Abdominal GI/Abdominal exam: Present: normal bowel sounds, soft, no peritoneal signs. Absent: distended, tenderness - Extremities Exam Extremities exam: Present: warm, radial pulses palpable and symetrical. Absent : calf tenderness, cyanotic, pedal edema - Neurological Exam Neurological exam: Present: CN II-XII intact, oriented X3, no focal deficits. Absent: pronater drift, facial droop, speech deficit - Skin Skin exam: Present: dry, intact
== END 2016-03-25 20:07 | disposition home or self-care (01) | DRG 720 ==
LOC: 2ANU 17:56 → EMEROO 17:56 → 2ANU 03-20 01:57 → 2NNU 03-20 09:19
PROVIDERS: ADMIT Family Medicine; ATTEND Internal Medicine Endocrinology, Diabetes & Metabolism

== ENCOUNTER 2019-09-20 16:18 | Inpatient (IN) ==
[2019-09-20] MEDS ORDERED: 0.9 % Sodium Chloride 500 ML IVC ONE ×2 (17:08→19:23)
[2019-09-20 17:25] LABS: Basophils % 0.2 %; Hematocrit 53.3 % (35.3-44.9); Immature Granulocytes % 0.8 % (0-4); Lymphocytes # 0.5 K/mcL (0.6-4.6); Lymphocytes % 2.2 %; Mean Corpuscular HGB Conc 31.9 g/dL (31.6-35.5); Mean Corpuscular Hemoglobin 30.5 pg (28.0-33.3); Mean Corpuscular Volume 95.7 fL (83.0-100.0); Mean Platelet Volume 10.8 fL (9.4-12.4); Monocytes # 1.6 K/mcL (0.0-1.3); Monocytes % 7.6 %; Neutrophils # 18.8 K/mcL (1.6-8.9); Platelet Count 421 K/mcL (140-400); Red Blood Count 5.57 M/mcL (3.82-4.97); Red Cell Distribution Width 13.1 % (11.5-14.5); Segmented Neutrophils % 89.2 %; White Blood Count 21.1 K/mcL (4.3-11.1)
[2019-09-20 17:31] LABS: INR 1.2; Prothrombin Time 13.7 Seconds (9.4-12.1)
[2019-09-20 17:33] LABS: Activated Partial Thrombo Time 39.1 Seconds (26.0-36.0)
[2019-09-20 17:48] LABS: Albumin 3.9 g/dL (3.5-5.7); Albumin/Globulin Ratio 0.9 (1.1-2.2); Bilirubin,Total 0.6 mg/dL (0.3-1.0); Calcium 9.7 mg/dL (8.6-10.3); Globulin 4.2 g/dL (2.4-3.5); Potassium 4.4 mEq/L (3.5-5.1); Total Protein 8.1 g/dL (6.4-8.9); Troponin I 0.09 ng/mL (< 0.04)
[2019-09-20] MEDS ORDERED: *HR* OxyCODONE/APAP 5/325 TABLET PO ONE (18:03)
[2019-09-20] MEDS ORDERED: Azithromycin 500 MG in 0.9 % Sodium Chloride 250 ML IVPB ONE (18:15)
[2019-09-20] MEDS ORDERED: Aspirin 325 MG TABLET PO ONE (18:42)
[2019-09-20 19:08] LABS: Bacteria,Urine Few per hpf (None-Few); Bilirubin,Urine Small (Negative); Blood,Urine Small (Negative); Clarity,Urine Clear (Clear); Color,Urine Yellow (Yellow); Glucose,Urine (UA) Normal (Normal); Hyaline Casts,Urine Many per lpf (None Seen); Ketones,Urine 10 mg/dL (Negative); Leukocyte Esterase,Urine Negative (Negative); Mucus,Urine Few per lpf (None-Few); Nitrite,Urine Negative (Negative); PH,Urine 5.5 pH Units (5.0-8.0); Protein,Urine 30 mg/dL (Neg-Trace); RBC,Urine 0-3 per hpf (0-3); Squamous Epithelial Cell,Urine Few per hpf (None-Few); WBC,Urine 15-30 per hpf (0-3)
[2019-09-20] MEDS ORDERED: cefTRIAXone 1,000 MG in 0.9 % Sodium Chloride Mini Bag 100 ML IVPB ONE (19:24)
[2019-09-20] MEDS ORDERED: CefTRIAXone 1,000 MG VIAL ONE (19:40)
[2019-09-20] MEDS ORDERED: cefTRIAXone 1,000 MG in Water for inj. (sterile) 10 ML IVP ONE (19:45)
[2019-09-20] MEDS ORDERED: *HR* Heparin 5,000 UNIT/ML VIAL IVP PRN ×4 (20:17→23:00)
[2019-09-20] MEDS ORDERED: *HR* Heparin 5,000 UNIT/ML VIAL IVP ONE (20:17)
[2019-09-20] MEDS ORDERED: Heparin 25,000 UNIT/250 ML D5W 25,000 UNIT/250 ML IV.SOLN IVC SCH (20:30)
[2019-09-20] MEDS ORDERED: Naloxone 0.4 MG/ML INJ IVP PRN (23:00)
[2019-09-20] MEDS ORDERED: Perflutren Lipid Microsphere 1.3 ML in 0.9 % Sodium Chloride 8.7 ML IVP ONE (23:06)
[2019-09-20 23:28] LABS: Calcium 9.2 mg/dL (8.6-10.3); Magnesium 2.2 mg/dL (1.6-2.6); Phosphorous 4.6 mg/dL (2.7-4.5); Potassium 4.3 mEq/L (3.5-5.1)
[2019-09-20] MEDS ORDERED: Levalbuterol Neb 1.25 MG/3 ML IH PRN (23:34)
[2019-09-20] MEDS ORDERED: Ipratropium Neb 0.5 MG NEBULIZER IH PRN (23:34)
[2019-09-20] MEDS ORDERED: Vancomycin 1,750 MG in 0.9 % Sodium Chloride 250 ML IVPB SCH (23:45)
[2019-09-20] MEDS: Heparin 25,000 UNIT/250 ML D5W 25,000 UNIT/250 ML IV.SOLN IVC SCH (23:48)
[2019-09-21] MEDS ORDERED: Vancomycin 1,750 MG/517.5 ML IV.SOLN IVPB ONE (00:01)
[2019-09-21] MEDS: Acetaminophen 325 MG TABLET PO SCH ×4 (00:05→17:05)
[2019-09-21] MEDS ORDERED: 0.9 % Sodium Chloride 1,000 ML IVC SCH (01:15)
[2019-09-21] MEDS: Ipratropium Neb 0.5 MG NEBULIZER IH SCH ×4 (04:27→22:28)
[2019-09-21] MEDS: Levalbuterol Neb 1.25 MG/3 ML IH SCH ×4 (04:27→22:28)
[2019-09-21] MEDS: Piperacillin/Tazobactam 3.375 GM in 0.9 % Sodium Chloride Mini Bag 100 ML IVPB SCH ×3 (05:30→23:45)
[2019-09-21 06:38] LABS: Basophils % 0.1 %; Eosinophils % 0.1 %; Hematocrit 46.3 % (35.3-44.9); Immature Granulocytes % 0.3 % (0-4); Lymphocytes # 1.3 K/mcL (0.6-4.6); Lymphocytes % 8.6 %; Mean Corpuscular HGB Conc 32.8 g/dL (31.6-35.5); Mean Corpuscular Hemoglobin 31.6 pg (28.0-33.3); Mean Corpuscular Volume 96.3 fL (83.0-100.0); Mean Platelet Volume 10.4 fL (9.4-12.4); Monocytes # 1.7 K/mcL (0.0-1.3); Monocytes % 11.1 %; Platelet Count 291 K/mcL (140-400); Red Blood Count 4.81 M/mcL (3.82-4.97); Red Cell Distribution Width 12.9 % (11.5-14.5); Segmented Neutrophils % 79.8 %; White Blood Count 15.1 K/mcL (4.3-11.1)
[2019-09-21 06:39] LABS: Hemoglobin 15.2 g/dL (11.5-15.4)
[2019-09-21 07:02] LABS: Alanine Aminotransferase 21 Units/L (7-52); Albumin 3.3 g/dL (3.5-5.7); Albumin/Globulin Ratio 1.1 (1.1-2.2); Alkaline Phosphatase 108 Units/L (34-104); Aspartate Amino Transferase 44 Units/L (13-39); BUN/Creatinine Ratio 50 (6-26); Bilirubin,Total 0.4 mg/dL (0.3-1.0); Blood Urea Nitrogen 45 mg/dL (8-23); Calcium 8.9 mg/dL (8.6-10.3); Carbon Dioxide 23 mEq/L (23-29); Chloride 104 mEq/L (98-107); Globulin 3.1 g/dL (2.4-3.5); Glucose 110 mg/dL (70-105); Osmolality,Calculated 294 (280-300); Potassium 3.6 mEq/L (3.5-5.1); Sodium 136 mEq/L (136-145); Total Protein 6.4 g/dL (6.4-8.9); eGFR For African Americans > 60 (> 60); eGFR For Non-African Americans > 60 (> 60)
[2019-09-21] MEDS: Aspirin Enteric Coated 81 MG Tablet PO SCH (08:00)
[2019-09-21] MEDS ORDERED: Perflutren Lipid Microsphere 1.3 ML in 0.9 % Sodium Chloride 8.7 ML IVP ONE (08:46)
[2019-09-21] MEDS ORDERED: Gabapentin 300 MG CAPSULE PO SCH (09:00)
[2019-09-21] MEDS: Budesonide/Formoterol 160/4.5 1 PUFF INH IH SCH ×2 (10:49→22:28)
[2019-09-21] MEDS: Heparin 25,000 UNIT/250 ML D5W 25,000 UNIT/250 ML IV.SOLN IVC SCH (13:25)
[2019-09-21] MEDS ORDERED: Vancomycin 1,750 MG/517.5 ML IV.SOLN IVPB SCH (15:00)
[2019-09-21 15:33] LABS: Enterococcus by PCR Not Detected (Not Detect); Staphylococcus aureus by PCR Not Detected (Not Detect); Staphylococcus by PCR Not Detected (Not Detect)
[2019-09-21 15:34] LABS: Acinetobacter baumannii by PCR Not Detected (Not Detect); Candida albicans by PCR Not Detected (Not Detect); Candida glabrata by PCR Not Detected (Not Detect); Candida krusei by PCR Not Detected (Not Detect); Candida parapsilosis by PCR Not Detected (Not Detect); Candida tropicalis by PCR Not Detected (Not Detect); Enterobacter cloacae Cmplx PCR Not Detected (Not Detect); Enterobacteriaceae by PCR Not Detected (Not Detect); Escherichia coli by PCR Not Detected (Not Detect); Klebsiella oxytoca by PCR Not Detected (Not Detect); Klebsiella pneumoniae by PCR Not Detected (Not Detect); Proteus by PCR Not Detected (Not Detect); Pseudomonas aeruginosa by PCR Not Detected (Not Detect); Serratia marcescens by PCR Not Detected (Not Detect); Streptococcus agalactiae(B)PCR Not Detected (Not Detect); Streptococcus by PCR DETECTED (Not Detect); Streptococcus pneumoniae PCR Not Detected (Not Detect); Streptococcus pyogenes (A) PCR Not Detected (Not Detect)
[2019-09-21] MEDS: MethylPREDNISolone 40 MG/ML VIAL IVP SCH (17:05)
[2019-09-21] MEDS: Gabapentin 300 MG CAPSULE PO SCH (23:38)
[2019-09-21] MEDS: ALPRAZolam 1 MG TABLET PO SCH (23:38)
[2019-09-21 23:45] LABS: Potassium,Urine 21.3 mEq/L; Sodium, Urine 19.7 mEq/L
[2019-09-21] MEDS: Nystatin POWDER 30 GM BOTTLE TP SCH (23:50)
[2019-09-22] MEDS: Acetaminophen 325 MG TABLET PO SCH ×4 (00:48→18:21)
[2019-09-22] MEDS: Levalbuterol Neb 1.25 MG/3 ML IH SCH ×4 (03:39→21:30)
[2019-09-22] MEDS: Ipratropium Neb 0.5 MG NEBULIZER IH SCH ×4 (03:39→21:30)
[2019-09-22] MEDS: MethylPREDNISolone 40 MG/ML VIAL IVP SCH ×2 (06:25→18:21)
[2019-09-22] MEDS: Heparin 25,000 UNIT/250 ML D5W 25,000 UNIT/250 ML IV.SOLN IVC SCH (06:25)
[2019-09-22] MEDS: Magic Mouthwash 10 ML UD Cup PO SCH ×3 (06:31→15:59)
[2019-09-22] MEDS: Piperacillin/Tazobactam 3.375 GM in 0.9 % Sodium Chloride Mini Bag 100 ML IVPB SCH (06:32)
[2019-09-22 06:40] LABS: Hematocrit 43.7 % (35.3-44.9); Hemoglobin 13.7 g/dL (11.5-15.4); Mean Corpuscular HGB Conc 31.4 g/dL (31.6-35.5); Mean Corpuscular Hemoglobin 30.6 pg (28.0-33.3); Mean Corpuscular Volume 97.5 fL (83.0-100.0); Mean Platelet Volume 10.9 fL (9.4-12.4); Platelet Count 293 K/mcL (140-400); Red Blood Count 4.48 M/mcL (3.82-4.97); Red Cell Distribution Width 12.9 % (11.5-14.5); White Blood Count 8.8 K/mcL (4.3-11.1)
[2019-09-22 06:41] LABS: Immature Granulocytes % 0.3 % (0-4); Lymphocytes # 0.7 K/mcL (0.6-4.6); Lymphocytes % 8.1 %; Monocytes # 0.5 K/mcL (0.0-1.3); Monocytes % 5.8 %; Neutrophils # 7.6 K/mcL (1.6-8.9); Segmented Neutrophils % 85.8 %
[2019-09-22 06:42] LABS: Chol/HDL Ratio 3.7 (0-4.9)
[2019-09-22 06:45] LABS: BUN/Creatinine Ratio 32 (6-26); Blood Urea Nitrogen 16 mg/dL (8-23); Carbon Dioxide 28 mEq/L (23-29); Chloride 103 mEq/L (98-107); Glucose 116 mg/dL (70-105); Osmolality,Calculated 284 (280-300); Potassium 3.6 mEq/L (3.5-5.1); Sodium 136 mEq/L (136-145); eGFR For African Americans > 60 (> 60); eGFR For Non-African Americans > 60 (> 60)
[2019-09-22] MEDS: Aspirin Enteric Coated 81 MG Tablet PO SCH (08:45)
[2019-09-22] MEDS: lisinopriL 5 MG TABLET PO SCH (08:45)
[2019-09-22] MEDS: Gabapentin 300 MG CAPSULE PO SCH ×3 (08:45→20:18)
[2019-09-22] MEDS: Budesonide/Formoterol 160/4.5 1 PUFF INH IH SCH ×2 (10:13→21:30)
[2019-09-22] MEDS: Ampicillin 2 GM in 0.9 % Sodium Chloride Mini Bag 100 ML IVPB SCH ×3 (12:21→20:19)
[2019-09-22] MEDS: Nystatin POWDER 30 GM BOTTLE TP SCH ×2 (12:45→20:20)
[2019-09-22] MEDS ORDERED: Aminoglycoside Consult 1 EACH MC ONE (13:19)
[2019-09-22] MEDS: *HR* OxyCODONE Immed Rel 5 MG TABLET PO PRN (15:58)
[2019-09-22] MEDS: *HR* Heparin 5,000 UNIT/ML VIAL SQ SCH (18:21)
[2019-09-22] MEDS: Nystatin SUSP 5 ML UD.LIQ PO SCH ×2 (18:21→20:18)
[2019-09-22] MEDS: ALPRAZolam 1 MG TABLET PO SCH (20:18)
[2019-09-23 02:12] LABS: Basophils % 0.1 %; Hematocrit 42.2 % (35.3-44.9); Immature Granulocytes % 0.4 % (0-4); Lymphocytes # 0.7 K/mcL (0.6-4.6); Mean Corpuscular HGB Conc 30.8 g/dL (31.6-35.5); Mean Corpuscular Hemoglobin 30.1 pg (28.0-33.3); Mean Corpuscular Volume 97.7 fL (83.0-100.0); Mean Platelet Volume 10.4 fL (9.4-12.4); Monocytes # 0.5 K/mcL (0.0-1.3); Monocytes % 5.8 %; Neutrophils # 7.2 K/mcL (1.6-8.9); Platelet Count 310 K/mcL (140-400); Red Blood Count 4.32 M/mcL (3.82-4.97); Red Cell Distribution Width 12.8 % (11.5-14.5); Segmented Neutrophils % 85.7 %; White Blood Count 8.4 K/mcL (4.3-11.1)
[2019-09-23 02:26] LABS: BUN/Creatinine Ratio 28 (6-26); Blood Urea Nitrogen 13 mg/dL (8-23); Calcium 8.9 mg/dL (8.6-10.3); Carbon Dioxide 30 mEq/L (23-29); Chloride 102 mEq/L (98-107); Glucose 143 mg/dL (70-105); Osmolality,Calculated 287 (280-300); Potassium 3.8 mEq/L (3.5-5.1); Sodium 137 mEq/L (136-145); eGFR For African Americans > 60 (> 60); eGFR For Non-African Americans > 60 (> 60)
[2019-09-23] MEDS: Levalbuterol Neb 1.25 MG/3 ML IH SCH ×4 (03:30→21:42)
[2019-09-23] MEDS: Ipratropium Neb 0.5 MG NEBULIZER IH SCH ×4 (03:30→21:42)
[2019-09-23] MEDS: Ampicillin 2 GM in 0.9 % Sodium Chloride Mini Bag 100 ML IVPB SCH ×4 (05:52→19:47)
[2019-09-23] MEDS: MethylPREDNISolone 40 MG/ML VIAL IVP SCH (05:53)
[2019-09-23] MEDS: *HR* Heparin 5,000 UNIT/ML VIAL SQ SCH ×2 (05:53→17:17)
[2019-09-23] MEDS: Acetaminophen 325 MG TABLET PO SCH ×4 (05:55→17:16)
[2019-09-23] MEDS: Budesonide/Formoterol 160/4.5 1 PUFF INH IH SCH ×2 (09:26→21:42)
[2019-09-23] MEDS: Aspirin Enteric Coated 81 MG Tablet PO SCH (09:37)
[2019-09-23] MEDS: Gabapentin 300 MG CAPSULE PO SCH ×3 (09:37→20:49)
[2019-09-23] MEDS: Nystatin SUSP 5 ML UD.LIQ PO SCH ×4 (09:37→20:49)
[2019-09-23] MEDS: lisinopriL 5 MG TABLET PO SCH (09:37)
[2019-09-23] MEDS: Nystatin POWDER 30 GM BOTTLE TP SCH ×2 (09:38→20:54)
[2019-09-23] MEDS: Magic Mouthwash 10 ML UD Cup PO SCH ×3 (09:39→17:17)
[2019-09-23] MEDS: *HR* OxyCODONE Immed Rel 5 MG TABLET PO PRN ×2 (09:47→20:49)
[2019-09-23] MEDS ORDERED: *HR* OxyCODONE Immed Rel 5 MG TABLET PO ONE (11:34)
[2019-09-23] MEDS: Ampicillin/Sulbactam 3,000 MG in 0.9 % Sodium Chloride Mini Bag 100 ML IVPB SCH ×2 (17:15→23:59)
[2019-09-23] MEDS: ALPRAZolam 1 MG TABLET PO SCH (20:49)
[2019-09-24] MEDS: Ipratropium Neb 0.5 MG NEBULIZER IH SCH ×4 (03:36→21:39)
[2019-09-24] MEDS: Levalbuterol Neb 1.25 MG/3 ML IH SCH ×4 (03:36→21:39)
[2019-09-24 04:53] LABS: Basophils % 0.1 %; Eosinophils % 0.2 %; Hematocrit 47.2 % (35.3-44.9); Hemoglobin 14.4 g/dL (11.5-15.4); Immature Granulocytes % 0.3 % (0-4); Lymphocytes # 1.6 K/mcL (0.6-4.6); Lymphocytes % 16.7 %; Mean Corpuscular HGB Conc 30.5 g/dL (31.6-35.5); Mean Corpuscular Hemoglobin 30.6 pg (28.0-33.3); Mean Corpuscular Volume 100.4 fL (83.0-100.0); Mean Platelet Volume 10.4 fL (9.4-12.4); Monocytes # 0.9 K/mcL (0.0-1.3); Monocytes % 9.4 %; Neutrophils # 6.9 K/mcL (1.6-8.9); Platelet Count 321 K/mcL (140-400); Segmented Neutrophils % 73.3 %; White Blood Count 9.5 K/mcL (4.3-11.1)
[2019-09-24 05:14] LABS: BUN/Creatinine Ratio 37 (6-26); Blood Urea Nitrogen 20 mg/dL (8-23); Calcium 9.1 mg/dL (8.6-10.3); Carbon Dioxide 34 mEq/L (23-29); Chloride 101 mEq/L (98-107); Glucose 114 mg/dL (70-105); Osmolality,Calculated 297 (280-300); Potassium 3.3 mEq/L (3.5-5.1); Sodium 142 mEq/L (136-145); eGFR For African Americans > 60 (> 60); eGFR For Non-African Americans > 60 (> 60)
[2019-09-24] MEDS: Ampicillin/Sulbactam 3,000 MG in 0.9 % Sodium Chloride Mini Bag 100 ML IVPB SCH ×4 (05:19→23:01)
[2019-09-24] MEDS: *HR* OxyCODONE Immed Rel 5 MG TABLET PO PRN ×3 (05:19→17:28)
[2019-09-24] MEDS: *HR* Heparin 5,000 UNIT/ML VIAL SQ SCH ×2 (05:20→17:17)
[2019-09-24] MEDS ORDERED: *HR* Metoprolol 5 MG/5 ML VIAL IVP ONE ×2 (06:37→06:46)
[2019-09-24] MEDS: predniSONE 20 MG TABLET PO SCH (07:55)
[2019-09-24] MEDS: lisinopriL 5 MG TABLET PO SCH (07:55)
[2019-09-24] MEDS: Nystatin SUSP 5 ML UD.LIQ PO SCH ×4 (07:55→19:45)
[2019-09-24] MEDS: Magic Mouthwash 10 ML UD Cup PO SCH ×3 (07:55→16:30)
[2019-09-24] MEDS: Aspirin Enteric Coated 81 MG Tablet PO SCH (07:55)
[2019-09-24] MEDS: Gabapentin 300 MG CAPSULE PO SCH ×3 (07:55→19:45)
[2019-09-24] MEDS: Nystatin POWDER 30 GM BOTTLE TP SCH ×2 (08:05→19:45)
[2019-09-24] MEDS: Budesonide/Formoterol 160/4.5 1 PUFF INH IH SCH ×2 (09:35→21:39)
[2019-09-24] MEDS: ALPRAZolam 1 MG TABLET PO SCH (19:45)
[2019-09-25] MEDS: Levalbuterol Neb 1.25 MG/3 ML IH SCH ×4 (03:22→21:52)
[2019-09-25] MEDS: Ipratropium Neb 0.5 MG NEBULIZER IH SCH ×4 (03:22→21:52)
[2019-09-25 04:21] LABS: Basophils % 0.1 %; Hematocrit 44.6 % (35.3-44.9); Hemoglobin 13.4 g/dL (11.5-15.4); Immature Granulocytes % 0.4 % (0-4); Lymphocytes # 1.8 K/mcL (0.6-4.6); Lymphocytes % 22.2 %; Mean Corpuscular Hemoglobin 30.7 pg (28.0-33.3); Mean Corpuscular Volume 102.1 fL (83.0-100.0); Mean Platelet Volume 10.3 fL (9.4-12.4); Monocytes # 0.8 K/mcL (0.0-1.3); Monocytes % 9.3 %; Neutrophils # 5.6 K/mcL (1.6-8.9); Platelet Count 294 K/mcL (140-400); Red Blood Count 4.37 M/mcL (3.82-4.97); Red Cell Distribution Width 12.9 % (11.5-14.5); White Blood Count 8.2 K/mcL (4.3-11.1)
[2019-09-25] MEDS: *HR* OxyCODONE Immed Rel 5 MG TABLET PO PRN ×2 (04:33→10:32)
[2019-09-25 04:45] LABS: BUN/Creatinine Ratio 46 (6-26); Blood Urea Nitrogen 25 mg/dL (8-23); Calcium 9.2 mg/dL (8.6-10.3); Carbon Dioxide 37 mEq/L (23-29); Chloride 102 mEq/L (98-107); Glucose 97 mg/dL (70-105); Osmolality,Calculated 300 (280-300); Potassium 4.5 mEq/L (3.5-5.1); Sodium 143 mEq/L (136-145); eGFR For African Americans > 60 (> 60); eGFR For Non-African Americans > 60 (> 60)
[2019-09-25] MEDS: *HR* Heparin 5,000 UNIT/ML VIAL SQ SCH ×2 (05:59→16:45)
[2019-09-25] MEDS: Ampicillin/Sulbactam 3,000 MG in 0.9 % Sodium Chloride Mini Bag 100 ML IVPB SCH ×3 (05:59→16:46)
[2019-09-25] MEDS: Gabapentin 300 MG CAPSULE PO SCH ×3 (10:12→20:30)
[2019-09-25] MEDS: lisinopriL 5 MG TABLET PO SCH (10:12)
[2019-09-25] MEDS: Aspirin Enteric Coated 81 MG Tablet PO SCH (10:12)
[2019-09-25] MEDS: Nystatin SUSP 5 ML UD.LIQ PO SCH ×4 (10:13→20:29)
[2019-09-25] MEDS: Magic Mouthwash 10 ML UD Cup PO SCH ×3 (10:13→16:45)
[2019-09-25] MEDS: predniSONE 20 MG TABLET PO SCH (10:13)
[2019-09-25] MEDS: Nystatin POWDER 30 GM BOTTLE TP SCH ×2 (10:16→22:08)
[2019-09-25] MEDS ORDERED: Perflutren Lipid Microsphere 1.3 ML in 0.9 % Sodium Chloride 8.7 ML IVP ONE (10:28)
[2019-09-25] MEDS ORDERED: methocarbamoL 750 MG TABLET PO PRN (10:28)
[2019-09-25] MEDS: Budesonide/Formoterol 160/4.5 1 PUFF INH IH SCH ×2 (10:41→21:52)
[2019-09-25 20:00] LABS: ABG Base Excess 10 mEq/L (-2 to 3); ABG HCO3 40 mEq/L (21-27); ABG Oxygen Saturation 86 % (95-98); ABG PCO2 80 mmHg (35-45); ABG PH 7.31 pH Units (7.32-7.45); ABG PO2 59 mmHg (85-104); ABG TCO2 43 mEq/L (20-26)
[2019-09-25] MEDS: ALPRAZolam 1 MG TABLET PO SCH (20:30)
[2019-09-25] MEDS ORDERED: *HR* Metoprolol 5 MG/5 ML VIAL IVP ONE (22:00)
[2019-09-26] MEDS: Ampicillin/Sulbactam 3,000 MG in 0.9 % Sodium Chloride Mini Bag 100 ML IVPB SCH ×4 (00:09→17:17)
[2019-09-26 00:19] LABS: ABG Base Excess 9 mEq/L (-2 to 3); ABG HCO3 39 mEq/L (21-27); ABG Oxygen Saturation 88 % (95-98); ABG PCO2 73 mmHg (35-45); ABG PH 7.33 pH Units (7.32-7.45); ABG PO2 61 mmHg (85-104); ABG TCO2 41 mEq/L (20-26)
[2019-09-26] MEDS: Levalbuterol Neb 1.25 MG/3 ML IH SCH ×4 (03:35→22:24)
[2019-09-26] MEDS: Ipratropium Neb 0.5 MG NEBULIZER IH SCH ×4 (03:35→22:24)
[2019-09-26 04:58] LABS: ABG Base Excess 11 mEq/L (-2 to 3); ABG HCO3 40 mEq/L (21-27); ABG Oxygen Saturation 87 % (95-98); ABG PCO2 71 mmHg (35-45); ABG PH 7.36 pH Units (7.32-7.45); ABG PO2 58 mmHg (85-104); ABG TCO2 42 mEq/L (20-26)
[2019-09-26] MEDS: *HR* Heparin 5,000 UNIT/ML VIAL SQ SCH ×2 (05:31→17:16)
[2019-09-26] MEDS: Aspirin Enteric Coated 81 MG Tablet PO SCH (09:32)
[2019-09-26] MEDS: lisinopriL 5 MG TABLET PO SCH (09:32)
[2019-09-26] MEDS: Gabapentin 300 MG CAPSULE PO SCH ×3 (09:32→21:39)
[2019-09-26] MEDS: predniSONE 20 MG TABLET PO SCH (09:32)
[2019-09-26] MEDS: Nystatin SUSP 5 ML UD.LIQ PO SCH ×4 (09:33→21:39)
[2019-09-26] MEDS: Nystatin POWDER 30 GM BOTTLE TP SCH ×2 (09:33→21:41)
[2019-09-26] MEDS: Magic Mouthwash 10 ML UD Cup PO SCH ×3 (09:33→15:49)
[2019-09-26 09:36] LABS: Basophils % 0.1 %; Eosinophils # 0.1 K/mcL (0.0-0.6); Eosinophils % 1.1 %; Hematocrit 48.3 % (35.3-44.9); Hemoglobin 14.5 g/dL (11.5-15.4); Immature Granulocytes % 0.3 % (0-4); Lymphocytes % 29.5 %; Mean Corpuscular Hemoglobin 29.8 pg (28.0-33.3); Mean Corpuscular Volume 99.4 fL (83.0-100.0); Mean Platelet Volume 10.1 fL (9.4-12.4); Platelet Count 277 K/mcL (140-400); Red Blood Count 4.86 M/mcL (3.82-4.97); Red Cell Distribution Width 12.7 % (11.5-14.5); White Blood Count 10.1 K/mcL (4.3-11.1)
[2019-09-26] MEDS: *HR* OxyCODONE Immed Rel 5 MG TABLET PO PRN (09:37)
[2019-09-26 09:58] LABS: BUN/Creatinine Ratio 44 (6-26); Blood Urea Nitrogen 22 mg/dL (8-23); Calcium 9.3 mg/dL (8.6-10.3); Carbon Dioxide 38 mEq/L (23-29); Chloride 100 mEq/L (98-107); Glucose 98 mg/dL (70-105); Osmolality,Calculated 299 (280-300); Potassium 3.9 mEq/L (3.5-5.1); Sodium 143 mEq/L (136-145); eGFR For African Americans > 60 (> 60); eGFR For Non-African Americans > 60 (> 60)
[2019-09-26] MEDS: Budesonide/Formoterol 160/4.5 1 PUFF INH IH SCH ×2 (10:03→22:24)
[2019-09-26] MEDS: ALPRAZolam 1 MG TABLET PO SCH (21:38)
[2019-09-27] MEDS: Ampicillin/Sulbactam 3,000 MG in 0.9 % Sodium Chloride Mini Bag 100 ML IVPB SCH ×2 (00:07→05:28)
[2019-09-27] MEDS: *HR* OxyCODONE Immed Rel 5 MG TABLET PO PRN ×3 (00:11→15:04)
[2019-09-27] MEDS: Levalbuterol Neb 1.25 MG/3 ML IH SCH ×4 (03:15→21:54)
[2019-09-27] MEDS: Ipratropium Neb 0.5 MG NEBULIZER IH SCH ×4 (03:15→21:54)
[2019-09-27] MEDS: *HR* Heparin 5,000 UNIT/ML VIAL SQ SCH ×2 (05:28→17:51)
[2019-09-27] MEDS: Aspirin Enteric Coated 81 MG Tablet PO SCH (08:44)
[2019-09-27] MEDS: Magic Mouthwash 10 ML UD Cup PO SCH ×4 (08:45→17:51)
[2019-09-27] MEDS: Nystatin POWDER 30 GM BOTTLE TP SCH ×2 (08:46→20:12)
[2019-09-27] MEDS: predniSONE 20 MG TABLET PO SCH (08:46)
[2019-09-27] MEDS: lisinopriL 5 MG TABLET PO SCH (08:46)
[2019-09-27] MEDS: Nystatin SUSP 5 ML UD.LIQ PO SCH ×4 (08:46→20:12)
[2019-09-27] MEDS: Gabapentin 300 MG CAPSULE PO SCH ×3 (08:46→20:12)
[2019-09-27 10:01] LABS: Basophils % 0.2 %; Eosinophils # 0.2 K/mcL (0.0-0.6); Eosinophils % 1.8 %; Hematocrit 48.5 % (35.3-44.9); Hemoglobin 15.1 g/dL (11.5-15.4); Immature Granulocytes % 0.4 % (0-4); Lymphocytes # 4.4 K/mcL (0.6-4.6); Lymphocytes % 33.1 %; Mean Corpuscular HGB Conc 31.1 g/dL (31.6-35.5); Mean Corpuscular Hemoglobin 31.5 pg (28.0-33.3); Mean Corpuscular Volume 101.3 fL (83.0-100.0); Mean Platelet Volume 10.5 fL (9.4-12.4); Monocytes % 7.8 %; Neutrophils # 7.5 K/mcL (1.6-8.9); Platelet Count 289 K/mcL (140-400); Red Blood Count 4.79 M/mcL (3.82-4.97); Red Cell Distribution Width 12.7 % (11.5-14.5); Segmented Neutrophils % 56.7 %; White Blood Count 13.2 K/mcL (4.3-11.1)
[2019-09-27 10:17] LABS: BUN/Creatinine Ratio 40 (6-26); Blood Urea Nitrogen 20 mg/dL (8-23); Carbon Dioxide 37 mEq/L (23-29); Chloride 98 mEq/L (98-107); Glucose 87 mg/dL (70-105); Osmolality,Calculated 294 (280-300); Potassium 3.6 mEq/L (3.5-5.1); Sodium 141 mEq/L (136-145); eGFR For African Americans > 60 (> 60); eGFR For Non-African Americans > 60 (> 60)
[2019-09-27] MEDS: Budesonide/Formoterol 160/4.5 1 PUFF INH IH SCH ×2 (10:26→21:54)
[2019-09-27] MEDS: ALPRAZolam 1 MG TABLET PO SCH (20:12)
[2019-09-28 02:46] LABS: Basophils % 0.1 %; Eosinophils % 0.3 %; Hemoglobin 13.7 g/dL (11.5-15.4); Immature Granulocytes % 0.4 % (0-4); Lymphocytes # 2.6 K/mcL (0.6-4.6); Lymphocytes % 24.1 %; Mean Corpuscular HGB Conc 29.8 g/dL (31.6-35.5); Mean Corpuscular Hemoglobin 30.1 pg (28.0-33.3); Mean Corpuscular Volume 101.1 fL (83.0-100.0); Mean Platelet Volume 10.4 fL (9.4-12.4); Monocytes # 1.1 K/mcL (0.0-1.3); Monocytes % 10.1 %; Platelet Count 292 K/mcL (140-400); Red Blood Count 4.55 M/mcL (3.82-4.97); Red Cell Distribution Width 12.7 % (11.5-14.5); White Blood Count 10.7 K/mcL (4.3-11.1)
[2019-09-28 02:59] LABS: BUN/Creatinine Ratio 34 (6-26); Blood Urea Nitrogen 26 mg/dL (8-23); Calcium 8.6 mg/dL (8.6-10.3); Carbon Dioxide 39 mEq/L (23-29); Chloride 99 mEq/L (98-107); Glucose 91 mg/dL (70-105); Osmolality,Calculated 296 (280-300); Potassium 3.9 mEq/L (3.5-5.1); Sodium 141 mEq/L (136-145); eGFR For African Americans > 60 (> 60); eGFR For Non-African Americans > 60 (> 60)
[2019-09-28] MEDS: Ipratropium Neb 0.5 MG NEBULIZER IH SCH ×4 (03:48→22:08)
[2019-09-28] MEDS: Levalbuterol Neb 1.25 MG/3 ML IH SCH ×4 (03:48→22:08)
[2019-09-28] MEDS: *HR* OxyCODONE Immed Rel 5 MG TABLET PO PRN ×2 (04:02→21:18)
[2019-09-28] MEDS: *HR* Heparin 5,000 UNIT/ML VIAL SQ SCH ×2 (06:20→17:17)
[2019-09-28] MEDS: predniSONE 20 MG TABLET PO SCH (08:22)
[2019-09-28] MEDS: Magic Mouthwash 10 ML UD Cup PO SCH ×3 (08:22→17:17)
[2019-09-28] MEDS: Aspirin Enteric Coated 81 MG Tablet PO SCH (08:22)
[2019-09-28] MEDS: lisinopriL 5 MG TABLET PO SCH (08:22)
[2019-09-28] MEDS: Nystatin SUSP 5 ML UD.LIQ PO SCH ×4 (08:22→21:09)
[2019-09-28] MEDS: Gabapentin 300 MG CAPSULE PO SCH ×3 (08:22→21:11)
[2019-09-28] MEDS: Nystatin POWDER 30 GM BOTTLE TP SCH ×2 (08:23→21:11)
[2019-09-28] MEDS: Budesonide/Formoterol 160/4.5 1 PUFF INH IH SCH ×2 (10:09→22:09)
[2019-09-28] MEDS: ALPRAZolam 1 MG TABLET PO SCH (21:11)
[2019-09-29] MEDS: Levalbuterol Neb 1.25 MG/3 ML IH SCH ×3 (03:45→15:43)
[2019-09-29] MEDS: Ipratropium Neb 0.5 MG NEBULIZER IH SCH ×3 (03:45→15:43)
[2019-09-29] MEDS: *HR* Heparin 5,000 UNIT/ML VIAL SQ SCH (05:26)
[2019-09-29 06:44] LABS: Basophils % 0.1 %; Eosinophils # 0.1 K/mcL (0.0-0.6); Eosinophils % 0.6 %; Hematocrit 46.2 % (35.3-44.9); Hemoglobin 13.8 g/dL (11.5-15.4); Immature Granulocytes % 0.3 % (0-4); Lymphocytes # 3.6 K/mcL (0.6-4.6); Lymphocytes % 36.2 %; Mean Corpuscular HGB Conc 29.9 g/dL (31.6-35.5); Mean Corpuscular Hemoglobin 30.7 pg (28.0-33.3); Mean Corpuscular Volume 102.7 fL (83.0-100.0); Mean Platelet Volume 10.7 fL (9.4-12.4); Monocytes # 0.9 K/mcL (0.0-1.3); Monocytes % 9.1 %; Neutrophils # 5.3 K/mcL (1.6-8.9); Platelet Count 299 K/mcL (140-400); Red Cell Distribution Width 12.9 % (11.5-14.5); Segmented Neutrophils % 53.7 %
[2019-09-29 07:18] LABS: BUN/Creatinine Ratio 48 (6-26); Blood Urea Nitrogen 23 mg/dL (8-23); Calcium 8.8 mg/dL (8.6-10.3); Carbon Dioxide 40 mEq/L (23-29); Chloride 98 mEq/L (98-107); Glucose 75 mg/dL (70-105); Osmolality,Calculated 298 (280-300); Potassium 3.8 mEq/L (3.5-5.1); Sodium 143 mEq/L (136-145); eGFR For African Americans > 60 (> 60); eGFR For Non-African Americans > 60 (> 60)
[2019-09-29] MEDS ORDERED: predniSONE 20 MG TABLET PO SCH (09:00)
[2019-09-29] MEDS: *HR* OxyCODONE Immed Rel 5 MG TABLET PO PRN (09:49)
[2019-09-29] MEDS: lisinopriL 5 MG TABLET PO SCH (09:50)
[2019-09-29] MEDS: Magic Mouthwash 10 ML UD Cup PO SCH ×2 (09:51→12:27)
[2019-09-29] MEDS: Nystatin SUSP 5 ML UD.LIQ PO SCH ×2 (09:51→12:26)
[2019-09-29] MEDS: Gabapentin 300 MG CAPSULE PO SCH ×2 (09:51→15:36)
[2019-09-29] MEDS: Aspirin Enteric Coated 81 MG Tablet PO SCH (09:51)
[2019-09-29] MEDS: Nystatin POWDER 30 GM BOTTLE TP SCH (09:52)
[2019-09-29] MEDS: Budesonide/Formoterol 160/4.5 1 PUFF INH IH SCH (10:02)
[2019-09-29] MEDS ORDERED: Furosemide 40 MG/4 ML VIAL IVP ONE (10:36)
[2019-09-29] MEDS ORDERED: Furosemide 20 MG/2 ML VIAL IVP ONE (10:37)
[2019-09-29 16:20] VITALS: BP 118/57
== END 2019-09-29 19:02 | disposition home health service (06) | DRG 720 ==
LOC: EMEROOARM 16:18 → 2ANU 16:18 → SUATTDRO 09-21 01:25
PROVIDERS: ADMIT Internal Medicine; ATTEND Internal Medicine

== ENCOUNTER 2019-11-29 15:34 | Observation (INO) ==
[2019-11-29] MEDS ORDERED: Ibuprofen 800 MG TABLET PO ONE (16:06)
[2019-11-29] MEDS ORDERED: 0.9 % Sodium Chloride 500 ML IVC ONE ×2 (16:28→19:31)
[2019-11-29] MEDS ORDERED: Ondansetron 4 MG/2 ML VIAL IVP ONE (16:33)
[2019-11-29 16:34] LABS: Basophils % 0.4 %; Eosinophils # 0.1 K/mcL (0.0-0.6); Eosinophils % 0.8 %; Hematocrit 49.6 % (35.3-44.9); Hemoglobin 15.9 g/dL (11.5-15.4); Immature Granulocytes % 0.2 % (0-4); Lymphocytes # 2.2 K/mcL (0.6-4.6); Mean Corpuscular HGB Conc 32.1 g/dL (31.6-35.5); Mean Corpuscular Hemoglobin 30.7 pg (28.0-33.3); Mean Corpuscular Volume 95.8 fL (83.0-100.0); Mean Platelet Volume 11.6 fL (9.4-12.4); Monocytes % 10.5 %; Neutrophils # 6.5 K/mcL (1.6-8.9); Platelet Count 324 K/mcL (140-400); Red Blood Count 5.18 M/mcL (3.82-4.97); Red Cell Distribution Width 12.5 % (11.5-14.5); Segmented Neutrophils % 66.1 %; White Blood Count 9.9 K/mcL (4.3-11.1)
[2019-11-29 16:42] LABS: INR 1.2; Prothrombin Time 13.2 Seconds (9.4-12.1)
[2019-11-29 16:44] LABS: Activated Partial Thrombo Time 42.3 Seconds (26.0-36.0)
[2019-11-29 17:00] LABS: Alanine Aminotransferase 11 Units/L (7-52); Albumin 3.5 g/dL (3.5-5.7); Albumin/Globulin Ratio 1.1 (1.1-2.2); Alkaline Phosphatase 73 Units/L (34-104); Aspartate Amino Transferase 18 Units/L (13-39); BUN/Creatinine Ratio 22 (6-26); Bilirubin,Direct 0.2 mg/dL (0.0-0.2); Bilirubin,Indirect 0.4 mg/dL (0.0-1.0); Bilirubin,Total 0.6 mg/dL (0.3-1.0); Blood Urea Nitrogen 13 mg/dL (8-23); Calcium 9.8 mg/dL (8.6-10.3); Carbon Dioxide 34 mEq/L (23-29); Chloride 90 mEq/L (98-107); Globulin 3.3 g/dL (2.4-3.5); Glucose 88 mg/dL (70-105); Osmolality,Calculated 284 (280-300); Potassium 2.9 mEq/L (3.5-5.1); Sodium 137 mEq/L (136-145); Total Protein 6.8 g/dL (6.4-8.9); Troponin I 0.03 ng/mL (< 0.04); eGFR For African Americans > 60 (> 60); eGFR For Non-African Americans > 60 (> 60)
[2019-11-29] MEDS ORDERED: Potassium Chloride Elixir 20 MEQ/15 ML UDC PO ONE ×2 (17:43→22:43)
[2019-11-29] MEDS ORDERED: Azithromycin 500 MG in 0.9 % Sodium Chloride 250 ML IVPB ONE (17:44)
[2019-11-29] MEDS ORDERED: cefTRIAXone 2,000 MG in Water for inj. (sterile) 20 ML IVP SCH (18:00)
[2019-11-29] MEDS ORDERED: Isovue-370 500 ML BOTTLE IVP ONE (19:36)
[2019-11-29] MEDS ORDERED: methylPREDNISolone 125 MG/2 ML VIAL IVP ONE (19:56)
[2019-11-29] MEDS ORDERED: 0.9 % Sodium Chloride 1,000 ML IVC ONE (19:57)
[2019-11-29 19:59] LABS: Adenovirus Not Detected (Not Detect); Bordetella Pertussis Not Detected (Not Detect); Chlamydophila pneumoniae Not Detected (Not Detect); Coronavirus 229E Not Detected (Not Detect); Coronavirus HKU1 Not Detected (Not Detect); Coronavirus NL63 Not Detected (Not Detect); Coronavirus OC43 Not Detected (Not Detect); Human Metapneumovirus Not Detected (Not Detect); Human Rhinovirus/Enterovirus Not Detected (Not Detect); Influenza A Subtype 2009 H1 Not Detected (Not Detect); Influenza B Not Detected (Not Detect); Mycoplasma pneumoniae Not Detected (Not Detect); Parainfluenza Virus 1 Not Detected (Not Detect); Parainfluenza Virus 2 Not Detected (Not Detect); Parainfluenza Virus 3 Not Detected (Not Detect); Parainfluenza Virus 4 Not Detected (Not Detect); Respiratory Syncytial Virus Not Detected (Not Detect); SARS-CoV-2 Not Detected (Not Detect)
[2019-11-29] MEDS ORDERED: Ipratropium/Albuterol Neb 3 ML IH PRN (22:41)
[2019-11-29] MEDS ORDERED: Acetaminophen 325 MG TABLET PO PRN (22:44)
[2019-11-29] MEDS ORDERED: Naloxone 0.4 MG/ML INJ IVP PRN (22:44)
[2019-11-29] MEDS ORDERED: 0.9 % Sodium Chloride 1,000 ML IVC SCH (22:45)
[2019-11-29] MEDS: Nystatin Cream 15 GM TUBE TP SCH (23:20)
[2019-11-29] MEDS: Ondansetron 4 MG/2 ML VIAL IVP PRN (23:25)
[2019-11-29] MEDS: *HR* Heparin 5,000 UNIT/ML VIAL SQ SCH (23:26)
[2019-11-30 04:07] LABS: Hematocrit 45.3 % (35.3-44.9); Immature Granulocytes % 0.4 % (0-4); Lymphocytes # 0.6 K/mcL (0.6-4.6); Lymphocytes % 11.2 %; Mean Corpuscular HGB Conc 31.6 g/dL (31.6-35.5); Mean Corpuscular Hemoglobin 30.1 pg (28.0-33.3); Mean Corpuscular Volume 95.4 fL (83.0-100.0); Mean Platelet Volume 11.4 fL (9.4-12.4); Monocytes % 0.8 %; Neutrophils # 4.6 K/mcL (1.6-8.9); Platelet Count 274 K/mcL (140-400); Red Blood Count 4.75 M/mcL (3.82-4.97); Red Cell Distribution Width 12.4 % (11.5-14.5); Segmented Neutrophils % 87.6 %; White Blood Count 5.2 K/mcL (4.3-11.1)
[2019-11-30] MEDS ORDERED: Albuterol 2.5 MG/3 ML NEBULIZER IH PRN (04:07)
[2019-11-30 04:31] LABS: Hemoglobin 14.3 g/dL (11.5-15.4)
[2019-11-30 04:32] LABS: Alanine Aminotransferase 9 Units/L (7-52); Albumin 3.2 g/dL (3.5-5.7); Albumin/Globulin Ratio 1.1 (1.1-2.2); Alkaline Phosphatase 64 Units/L (34-104); Aspartate Amino Transferase 13 Units/L (13-39); BUN/Creatinine Ratio 31 (6-26); Bilirubin,Total 0.3 mg/dL (0.3-1.0); Blood Urea Nitrogen 13 mg/dL (8-23); Calcium 8.9 mg/dL (8.6-10.3); Carbon Dioxide 25 mEq/L (23-29); Chloride 98 mEq/L (98-107); Globulin 2.9 g/dL (2.4-3.5); Glucose 129 mg/dL (70-105); Osmolality,Calculated 286 (280-300); Potassium 3.9 mEq/L (3.5-5.1); Sodium 137 mEq/L (136-145); Total Protein 6.1 g/dL (6.4-8.9); eGFR For African Americans > 60 (> 60); eGFR For Non-African Americans > 60 (> 60)
[2019-11-30] MEDS: *HR* Heparin 5,000 UNIT/ML VIAL SQ SCH ×3 (05:02→21:20)
[2019-11-30] MEDS: Ipratropium/Albuterol Neb 3 ML IH SCH ×4 (05:04→21:37)
[2019-11-30 05:22] LABS: Platelet Estimate Normal (Normal); Reactive Lymphocytes Present (Not Present)
[2019-11-30] MEDS: Famotidine 20 MG TABLET PO SCH ×2 (09:53→20:37)
[2019-11-30] MEDS: Doxycycline 100 MG CAPSULE PO SCH ×2 (09:54→20:37)
[2019-11-30] MEDS: Gabapentin 300 MG CAPSULE PO SCH ×4 (09:54→20:37)
[2019-11-30] MEDS: Nystatin Cream 15 GM TUBE TP SCH ×2 (09:55→20:38)
[2019-11-30] MEDS: Aspirin Enteric Coated 81 MG Tablet PO SCH (09:55)
[2019-11-30] MEDS: lisinopriL 5 MG TABLET PO SCH (09:55)
[2019-11-30] MEDS: Ondansetron 4 MG/2 ML VIAL IVP PRN ×2 (11:00→22:10)
[2019-11-30] MEDS: Ibuprofen 400 MG TABLET PO PRN ×2 (11:00→20:38)
[2019-11-30] MEDS: ALPRAZolam 1 MG TABLET PO PRN ×2 (15:02→20:45)
[2019-12-01] MEDS: Ipratropium/Albuterol Neb 3 ML IH SCH ×4 (03:43→22:13)
[2019-12-01 04:13] LABS: Eosinophils % 0.4 %; Hemoglobin 13.8 g/dL (11.5-15.4); Immature Granulocytes % 0.5 % (0-4); Lymphocytes # 1.5 K/mcL (0.6-4.6); Lymphocytes % 13.9 %; Mean Corpuscular HGB Conc 32.9 g/dL (31.6-35.5); Mean Corpuscular Hemoglobin 31.4 pg (28.0-33.3); Mean Corpuscular Volume 95.5 fL (83.0-100.0); Mean Platelet Volume 11.3 fL (9.4-12.4); Monocytes # 0.8 K/mcL (0.0-1.3); Monocytes % 7.5 %; Neutrophils # 8.2 K/mcL (1.6-8.9); Platelet Count 274 K/mcL (140-400); Red Cell Distribution Width 12.5 % (11.5-14.5); Segmented Neutrophils % 77.7 %
[2019-12-01 04:14] LABS: White Blood Count 10.6 K/mcL (4.3-11.1)
[2019-12-01 04:46] LABS: BUN/Creatinine Ratio 22 (6-26); Blood Urea Nitrogen 10 mg/dL (8-23); Calcium 9.2 mg/dL (8.6-10.3); Carbon Dioxide 30 mEq/L (23-29); Chloride 99 mEq/L (98-107); Glucose 137 mg/dL (70-105); Magnesium 1.5 mg/dL (1.6-2.6); Osmolality,Calculated 285 (280-300); Phosphorous 2.9 mg/dL (2.7-4.5); Potassium 2.8 mEq/L (3.5-5.1); Sodium 137 mEq/L (136-145); eGFR For African Americans > 60 (> 60); eGFR For Non-African Americans > 60 (> 60)
[2019-12-01] MEDS: *HR* Heparin 5,000 UNIT/ML VIAL SQ SCH ×3 (05:36→21:06)
[2019-12-01] MEDS ORDERED: Potassium Chloride 40 MEQ, Lidocaine 1% 2 ML in 0.9 % Sodium Chloride 500 ML IVPB ONE ×2 (06:36→07:39)
[2019-12-01] MEDS ORDERED: Roflumilast [Daliresp] 500 MCG PO SCH (09:00)
[2019-12-01] MEDS: ALPRAZolam 1 MG TABLET PO PRN (09:42)
[2019-12-01] MEDS: Gabapentin 300 MG CAPSULE PO SCH ×3 (09:42→21:05)
[2019-12-01] MEDS: Famotidine 20 MG TABLET PO SCH ×2 (09:42→21:05)
[2019-12-01] MEDS: lisinopriL 5 MG TABLET PO SCH (09:43)
[2019-12-01] MEDS: Ibuprofen 400 MG TABLET PO PRN (09:43)
[2019-12-01] MEDS: Aspirin Enteric Coated 81 MG Tablet PO SCH (09:44)
[2019-12-01] MEDS: Doxycycline 100 MG CAPSULE PO SCH ×2 (09:44→21:05)
[2019-12-01] MEDS: Ondansetron 4 MG/2 ML VIAL IVP PRN ×2 (09:44→22:15)
[2019-12-01] MEDS: Nystatin Cream 15 GM TUBE TP SCH ×2 (09:44→21:13)
[2019-12-01] MEDS ORDERED: E-Z-PAQUE (BARIUM SULF) SUSP 1 BOTTLE PO ONE (13:05)
[2019-12-01] MEDS ORDERED: E-Z-HD (BARIUM SULF) SUSPENSION PO ONE (13:40)
[2019-12-01] MEDS ORDERED: Melatonin 3 MG TABLET PO ONE (21:44)
[2019-12-01] MEDS: Budesonide/Formoterol 80/4.5 1 PUFF INH IH SCH (22:13)
[2019-12-02] MEDS: Ibuprofen 400 MG TABLET PO PRN (00:10)
[2019-12-02] MEDS: Ipratropium/Albuterol Neb 3 ML IH SCH ×2 (04:01→10:44)
[2019-12-02] MEDS: *HR* Heparin 5,000 UNIT/ML VIAL SQ SCH (05:14)
[2019-12-02 08:13] LABS: Basophils % 0.3 %; Eosinophils % 0.5 %; Hematocrit 43.2 % (35.3-44.9); Immature Granulocytes % 0.3 % (0-4); Lymphocytes # 2.8 K/mcL (0.6-4.6); Lymphocytes % 48.1 %; Mean Corpuscular HGB Conc 30.1 g/dL (31.6-35.5); Mean Corpuscular Hemoglobin 30.2 pg (28.0-33.3); Mean Corpuscular Volume 100.2 fL (83.0-100.0); Mean Platelet Volume 11.8 fL (9.4-12.4); Monocytes # 0.7 K/mcL (0.0-1.3); Monocytes % 12.4 %; Neutrophils # 2.3 K/mcL (1.6-8.9); Platelet Count 241 K/mcL (140-400); Red Blood Count 4.31 M/mcL (3.82-4.97); Red Cell Distribution Width 12.6 % (11.5-14.5); Segmented Neutrophils % 38.4 %; White Blood Count 5.9 K/mcL (4.3-11.1)
[2019-12-02 08:30] LABS: BUN/Creatinine Ratio 26 (6-26); Blood Urea Nitrogen 12 mg/dL (8-23); Calcium 8.8 mg/dL (8.6-10.3); Carbon Dioxide 30 mEq/L (23-29); Chloride 100 mEq/L (98-107); Glucose 88 mg/dL (70-105); Magnesium 1.8 mg/dL (1.6-2.6); Osmolality,Calculated 285 (280-300); Phosphorous 4.5 mg/dL (2.7-4.5); Potassium 2.8 mEq/L (3.5-5.1); Sodium 138 mEq/L (136-145); eGFR For African Americans > 60 (> 60); eGFR For Non-African Americans > 60 (> 60)
[2019-12-02] MEDS: Aspirin Enteric Coated 81 MG Tablet PO SCH (09:13)
[2019-12-02] MEDS: Gabapentin 300 MG CAPSULE PO SCH (09:13)
[2019-12-02] MEDS: Doxycycline 100 MG CAPSULE PO SCH (09:13)
[2019-12-02] MEDS: Famotidine 20 MG TABLET PO SCH (09:14)
[2019-12-02] MEDS: lisinopriL 5 MG TABLET PO SCH (09:14)
[2019-12-02] MEDS: Ondansetron 4 MG/2 ML VIAL IVP PRN (09:31)
[2019-12-02] MEDS: Budesonide/Formoterol 80/4.5 1 PUFF INH IH SCH (10:44)
[2019-12-02 10:49] VITALS: BP 110/64
[2019-12-02] MEDS: Nystatin Cream 15 GM TUBE TP SCH (12:09)
== END 2019-12-02 14:05 | disposition home health service (06) ==
LOC: EMEROOARM 15:34 → 3ANU 15:34 → SUATTDRO 20:45 → 3ANU 21:16
PROVIDERS: ADMIT Internal Medicine; ATTEND Family Medicine

== ENCOUNTER 2019-12-23 22:06 | Inpatient (IN) ==
[2019-12-23] MEDS ORDERED: Ondansetron ODT 4 MG TAB.RAPDIS SL ONE (22:20)
[2019-12-23] MEDS ORDERED: 0.9 % Sodium Chloride 1,000 ML IVC ONE (22:20)
[2019-12-23 23:10] LABS: Basophils % 0.4 %; Eosinophils % 0.3 %; Hematocrit 47.1 % (35.3-44.9); Hemoglobin 15.4 g/dL (11.5-15.4); Immature Granulocytes % 0.2 % (0-4); Lymphocytes # 1.7 K/mcL (0.6-4.6); Lymphocytes % 18.5 %; Mean Corpuscular HGB Conc 32.7 g/dL (31.6-35.5); Mean Corpuscular Hemoglobin 30.3 pg (28.0-33.3); Mean Platelet Volume 11.1 fL (9.4-12.4); Monocytes % 11.1 %; Neutrophils # 6.2 K/mcL (1.6-8.9); Platelet Count 280 K/mcL (140-400); Red Blood Count 5.08 M/mcL (3.82-4.97); Red Cell Distribution Width 12.6 % (11.5-14.5); Segmented Neutrophils % 69.5 %; White Blood Count 8.9 K/mcL (4.3-11.1)
[2019-12-23 23:15] LABS: Mean Corpuscular Volume 92.7 fL (83.0-100.0)
[2019-12-23 23:19] LABS: INR 1.2; Prothrombin Time 13.8 Seconds (9.4-12.1)
[2019-12-23 23:22] LABS: Activated Partial Thrombo Time 40.9 Seconds (26.0-36.0)
[2019-12-23 23:28] LABS: Bilirubin,Urine Moderate (Negative); Blood,Urine Small (Negative); Clarity,Urine Clear (Clear); Color,Urine Yellow (Yellow); Glucose,Urine (UA) Normal (Normal); Hyaline Casts,Urine Few per lpf (None Seen); Ketones,Urine 80 mg/dL (Negative); Leukocyte Esterase,Urine Negative (Negative); Mucus,Urine Few per lpf (None-Few); Nitrite,Urine Negative (Negative); PH,Urine 6.5 pH Units (5.0-8.0); Protein,Urine 70 mg/dL (Neg-Trace); Specific Gravity,Urine 1.022 (1.010-1.025); Squamous Epithelial Cell,Urine Few per hpf (None-Few); WBC,Urine 0-3 per hpf (0-3)
[2019-12-23] MEDS ORDERED: Potassium Chloride 40 MEQ, Lidocaine 1% 2 ML in D5% in Water 500 ML IVPB ONE (23:38)
[2019-12-23 23:39] LABS: Alanine Aminotransferase 12 Units/L (7-52); Albumin 3.5 g/dL (3.5-5.7); Albumin/Globulin Ratio 1.1 (1.1-2.2); Alkaline Phosphatase 65 Units/L (34-104); Aspartate Amino Transferase 18 Units/L (13-39); BUN/Creatinine Ratio 15 (6-26); Bilirubin,Direct 0.1 mg/dL (0.0-0.2); Bilirubin,Indirect 0.4 mg/dL (0.0-1.0); Bilirubin,Total 0.5 mg/dL (0.3-1.0); Blood Urea Nitrogen 7 mg/dL (8-23); Calcium 9.3 mg/dL (8.6-10.3); Carbon Dioxide 32 mEq/L (23-29); Chloride 91 mEq/L (98-107); Globulin 3.2 g/dL (2.4-3.5); Glucose 99 mg/dL (70-105); Lipase 25 Units/L (11-82); Osmolality,Calculated 284 (280-300); Potassium 2.5 mEq/L (3.5-5.1); Sodium 138 mEq/L (136-145); Total Protein 6.7 g/dL (6.4-8.9); Troponin I 0.03 ng/mL (< 0.04); eGFR For African Americans > 60 (> 60); eGFR For Non-African Americans > 60 (> 60)
[2019-12-23] MEDS ORDERED: Potassium Effervescent 25 MEQ TABLET.EFF PO ONE (23:46)
[2019-12-24] MEDS ORDERED: Naloxone 0.4 MG/ML INJ IVP PRN (00:54)
[2019-12-24] MEDS ORDERED: Ondansetron ODT 4 MG TAB.RAPDIS SL PRN (00:54)
[2019-12-24] MEDS ORDERED: Potassium Chloride 40 MEQ, Lidocaine 1% 2 ML in 0.9 % Sodium Chloride 500 ML IVPB ONE ×2 (00:56→10:54)
[2019-12-24] MEDS: 0.9 % Sodium Chloride 1,000 ML IVC SCH ×2 (01:50→10:18)
[2019-12-24] MEDS ORDERED: *HR* Promethazine 25 MG/ML VIAL IVP PRN (03:10)
[2019-12-24] MEDS ORDERED: Promethazine 25 MG in 0.9 % Sodium Chloride 50 ML IVPB PRN (03:15)
[2019-12-24] MEDS ORDERED: Nicotine 21 MG PATCH.TD24 TD PRN (04:53)
[2019-12-24 05:39] LABS: Hematocrit 44.5 % (35.3-44.9); Hemoglobin 14.2 g/dL (11.5-15.4); Mean Corpuscular HGB Conc 31.9 g/dL (31.6-35.5); Mean Corpuscular Hemoglobin 30.1 pg (28.0-33.3); Mean Corpuscular Volume 94.3 fL (83.0-100.0); Mean Platelet Volume 11.3 fL (9.4-12.4); Platelet Count 254 K/mcL (140-400); Red Blood Count 4.72 M/mcL (3.82-4.97); Red Cell Distribution Width 12.7 % (11.5-14.5); White Blood Count 7.3 K/mcL (4.3-11.1)
[2019-12-24 06:05] LABS: BUN/Creatinine Ratio 13 (6-26); Blood Urea Nitrogen 6 mg/dL (8-23); Carbon Dioxide 31 mEq/L (23-29); Chloride 95 mEq/L (98-107); Glucose 101 mg/dL (70-105); Magnesium 1.5 mg/dL (1.6-2.6); Osmolality,Calculated 280 (280-300); Phosphorous 3.4 mg/dL (2.7-4.5); Potassium 3.2 mEq/L (3.5-5.1); Sodium 136 mEq/L (136-145); eGFR For African Americans > 60 (> 60); eGFR For Non-African Americans > 60 (> 60)
[2019-12-24] MEDS: *HR* Heparin 5,000 UNIT/ML VIAL SQ SCH ×2 (06:11→17:14)
[2019-12-24] MEDS ORDERED: Albuterol 2.5 MG/3 ML NEBULIZER IH PRN (08:13)
[2019-12-24] MEDS: Budesonide/Formoterol 80/4.5 1 PUFF INH IH SCH ×2 (09:47→19:51)
[2019-12-24] MEDS: Ipratropium 1 PUFF INHALER IH SCH (09:47)
[2019-12-24] MEDS: Roflumilast [Daliresp] 500 MCG PO SCH (10:02)
[2019-12-24 10:18] LABS: Thyroid Stimulating Hormone < 0.010 mcIU/mL (0.340-5.600)
[2019-12-24] MEDS: Nystatin POWDER 30 GM BOTTLE TP SCH ×2 (10:19→20:34)
[2019-12-24] MEDS: Magnesium Oxide 400 MG TABLET PO SCH ×2 (10:19→20:34)
[2019-12-24] MEDS: Nystatin Cream 15 GM TUBE TP SCH ×2 (10:20→20:34)
[2019-12-24] MEDS: Metoclopramide 10 MG/2 ML VIAL IVP SCH ×2 (17:14→20:34)
[2019-12-24] MEDS: ALPRAZolam 1 MG TABLET PO SCH (20:34)
[2019-12-24] MEDS ORDERED: Ketorolac 15 MG/ML VIAL IVP PRN (23:33)
[2019-12-24] MEDS: Gabapentin 300 MG CAPSULE PO SCH (23:47)
[2019-12-25] MEDS ORDERED: Acetaminophen 325 MG TABLET PO ONE (03:45)
[2019-12-25] MEDS: *HR* Heparin 5,000 UNIT/ML VIAL SQ SCH ×2 (05:31→17:25)
[2019-12-25] MEDS: Budesonide/Formoterol 80/4.5 1 PUFF INH IH SCH ×2 (07:37→22:08)
[2019-12-25] MEDS: Ipratropium 1 PUFF INHALER IH SCH (07:37)
[2019-12-25] MEDS: Gabapentin 300 MG CAPSULE PO SCH ×2 (07:58→20:58)
[2019-12-25] MEDS: Magnesium Oxide 400 MG TABLET PO SCH ×2 (07:58→20:57)
[2019-12-25] MEDS: Metoclopramide 10 MG/2 ML VIAL IVP SCH ×3 (07:58→20:59)
[2019-12-25] MEDS: Nystatin Cream 15 GM TUBE TP SCH ×2 (07:59→20:58)
[2019-12-25] MEDS: Nystatin POWDER 30 GM BOTTLE TP SCH ×2 (07:59→20:58)
[2019-12-25] MEDS: Roflumilast [Daliresp] 500 MCG PO SCH (07:59)
[2019-12-25 08:55] LABS: BUN/Creatinine Ratio 8 (6-26); Blood Urea Nitrogen 3 mg/dL (8-23); Calcium 8.9 mg/dL (8.6-10.3); Carbon Dioxide 30 mEq/L (23-29); Chloride 101 mEq/L (98-107); Glucose 90 mg/dL (70-105); Magnesium 1.3 mg/dL (1.6-2.6); Osmolality,Calculated 284 (280-300); Potassium 2.3 mEq/L (3.5-5.1); Sodium 139 mEq/L (136-145); eGFR For African Americans > 60 (> 60); eGFR For Non-African Americans > 60 (> 60)
[2019-12-25 09:03] LABS: Triiodothyronine (T3) Free 4.37 pg/mL (2.50-3.90)
[2019-12-25 09:07] LABS: Triiodothyronine (T3) Total 1.79 ng/mL (0.87-1.78)
[2019-12-25] MEDS ORDERED: Potassium Chloride 40 MEQ, Lidocaine 1% 2 ML in 0.9 % Sodium Chloride 500 ML IVPB ONE ×2 (09:22→17:36)
[2019-12-25] MEDS: *HR* OxyCODONE/APAP 5/325 TABLET PO PRN (12:22)
[2019-12-25] MEDS ORDERED: *HR* Metoprolol 5 MG/5 ML VIAL IVP ONE (13:38)
[2019-12-25] MEDS: MethylPREDNISolone 40 MG/ML VIAL IVP SCH ×2 (14:41→23:20)
[2019-12-25] MEDS ORDERED: 0.9 % Sodium Chloride 1,000 ML IVC ONE (14:55)
[2019-12-25 17:16] LABS: Estimated Average Glucose 111 mg/dl
[2019-12-25] MEDS: methIMAzole 5 MG TABLET PO SCH (17:25)
[2019-12-25] MEDS: ALPRAZolam 1 MG TABLET PO SCH (21:00)
[2019-12-25] MEDS ORDERED: Ketorolac 15 MG/ML VIAL IVP ONE (21:34)
[2019-12-26] MEDS ORDERED: Acetaminophen 325 MG TABLET PO ONE (03:37)
[2019-12-26] MEDS: *HR* Heparin 5,000 UNIT/ML VIAL SQ SCH ×2 (05:02→17:55)
[2019-12-26 05:49] LABS: BUN/Creatinine Ratio 19 (6-26); Blood Urea Nitrogen 8 mg/dL (8-23); Calcium 8.7 mg/dL (8.6-10.3); Carbon Dioxide 23 mEq/L (23-29); Chloride 105 mEq/L (98-107); Glucose 167 mg/dL (70-105); Magnesium 1.6 mg/dL (1.6-2.6); Osmolality,Calculated 286 (280-300); Potassium 3.9 mEq/L (3.5-5.1); Sodium 137 mEq/L (136-145); eGFR For African Americans > 60 (> 60); eGFR For Non-African Americans > 60 (> 60)
[2019-12-26 06:16] LABS: Thyroid Stimulating Hormone < 0.010 mcIU/mL (0.340-5.600); Triiodothyronine (T3) Free 4.21 pg/mL (2.50-3.90); Triiodothyronine (T3) Total 1.54 ng/mL (0.87-1.78)
[2019-12-26] MEDS: Budesonide/Formoterol 80/4.5 1 PUFF INH IH SCH ×2 (07:26→20:27)
[2019-12-26] MEDS: Ipratropium 1 PUFF INHALER IH SCH (07:26)
[2019-12-26] MEDS: Metoclopramide 10 MG/2 ML VIAL IVP SCH (08:30)
[2019-12-26] MEDS: MethylPREDNISolone 40 MG/ML VIAL IVP SCH (08:33)
[2019-12-26] MEDS: Magnesium Oxide 400 MG TABLET PO SCH (08:36)
[2019-12-26] MEDS: Gabapentin 300 MG CAPSULE PO SCH ×2 (08:36→22:08)
[2019-12-26] MEDS: methIMAzole 5 MG TABLET PO SCH (08:36)
[2019-12-26] MEDS: Nystatin POWDER 30 GM BOTTLE TP SCH ×2 (08:38→22:38)
[2019-12-26] MEDS: Nystatin Cream 15 GM TUBE TP SCH ×2 (08:39→22:38)
[2019-12-26] MEDS: *HR* OxyCODONE/APAP 5/325 TABLET PO PRN (14:13)
[2019-12-26] MEDS: Metoclopramide 10 MG/2 ML VIAL IVP PRN (17:52)
[2019-12-26] MEDS: ALPRAZolam 1 MG TABLET PO SCH (22:08)
[2019-12-27 03:10] LABS: BUN/Creatinine Ratio 23 (6-26); Blood Urea Nitrogen 9 mg/dL (8-23); Calcium 8.8 mg/dL (8.6-10.3); Carbon Dioxide 22 mEq/L (23-29); Chloride 107 mEq/L (98-107); Glucose 98 mg/dL (70-105); Magnesium 1.6 mg/dL (1.6-2.6); Osmolality,Calculated 289 (280-300); Potassium 3.8 mEq/L (3.5-5.1); Sodium 140 mEq/L (136-145); eGFR For African Americans > 60 (> 60); eGFR For Non-African Americans > 60 (> 60)
[2019-12-27] MEDS ORDERED: Acetaminophen IV 1,000 MG/100 ML INFUS..BTL IVPB ONE (03:53)
[2019-12-27] MEDS ORDERED: *HR* Metoprolol 5 MG/5 ML VIAL IVP ONE (04:25)
[2019-12-27] MEDS ORDERED: *HR* LORazepam 2 MG/ML VIAL IVP ONE (04:52)
[2019-12-27] MEDS: *HR* Heparin 5,000 UNIT/ML VIAL SQ SCH (05:03)
[2019-12-27] MEDS: Budesonide/Formoterol 80/4.5 1 PUFF INH IH SCH (07:36)
[2019-12-27] MEDS: Ipratropium 1 PUFF INHALER IH SCH (07:36)
[2019-12-27] MEDS: Gabapentin 300 MG CAPSULE PO SCH (08:25)
[2019-12-27] MEDS: Nystatin Cream 15 GM TUBE TP SCH (08:25)
[2019-12-27] MEDS: methIMAzole 5 MG TABLET PO SCH (08:25)
[2019-12-27] MEDS: Nystatin POWDER 30 GM BOTTLE TP SCH (08:26)
[2019-12-27] MEDS: Metoclopramide 10 MG/2 ML VIAL IVP PRN (08:31)
[2019-12-27 08:38] LABS: Hematocrit 46.3 % (35.3-44.9); Hemoglobin 14.6 g/dL (11.5-15.4); Mean Corpuscular HGB Conc 31.5 g/dL (31.6-35.5); Mean Corpuscular Hemoglobin 30.9 pg (28.0-33.3); Mean Corpuscular Volume 97.9 fL (83.0-100.0); Mean Platelet Volume 11.3 fL (9.4-12.4); Platelet Count 310 K/mcL (140-400); Red Blood Count 4.73 M/mcL (3.82-4.97); White Blood Count 14.6 K/mcL (4.3-11.1)
[2019-12-27] MEDS: *HR* OxyCODONE/APAP 5/325 TABLET PO PRN (14:58)
[2019-12-27 16:03] VITALS: BP 101/69
[2019-12-29 12:45] LABS: ANA IgG by ELISA NONE DETECTED (None Detected)
[2019-12-29 12:46] LABS: Serine Protease-3 Antibody 4 AU/mL (0-19)
== END 2019-12-27 18:23 | disposition home health service (06) | DRG 427 ==
LOC: 3BNU 22:06 → EMEROOARM 22:06 → 3BNU 12-24 00:45
PROVIDERS: ADMIT Internal Medicine; ATTEND Internal Medicine

== ENCOUNTER 2020-01-01 12:30 | Inpatient (IN) ==
[2020-01-01 13:17] LABS: Bacteria,Urine Few per hpf (None-Few); Bilirubin,Urine Negative (Negative); Blood,Urine Negative (Negative); Clarity,Urine Clear (Clear); Color,Urine Light-Yellow (Yellow); Glucose,Urine (UA) Normal (Normal); Ketones,Urine Negative (Negative); Leukocyte Esterase,Urine Large (Negative); Mucus,Urine Few per lpf (None-Few); Nitrite,Urine Positive (Negative); Protein,Urine Negative (Neg-Trace); RBC,Urine 0-3 per hpf (0-3); Specific Gravity,Urine 1.013 (1.010-1.025); Squamous Epithelial Cell,Urine Few per hpf (None-Few); Urobilinogen,Urine Normal (Normal); WBC,Urine 30-50 per hpf (0-3)
[2020-01-01 13:32] LABS: Basophils % 0.4 %; Eosinophils # 0.1 K/mcL (0.0-0.6); Eosinophils % 1.1 %; Hematocrit 48.5 % (35.3-44.9); Hemoglobin 15.4 g/dL (11.5-15.4); Immature Granulocytes % 0.4 % (0-4); Lymphocytes # 2.9 K/mcL (0.6-4.6); Lymphocytes % 28.2 %; Mean Corpuscular HGB Conc 31.8 g/dL (31.6-35.5); Mean Corpuscular Volume 94.4 fL (83.0-100.0); Mean Platelet Volume 9.9 fL (9.4-12.4); Monocytes % 9.2 %; Neutrophils # 6.3 K/mcL (1.6-8.9); Platelet Count 398 K/mcL (140-400); Red Blood Count 5.14 M/mcL (3.82-4.97); Red Cell Distribution Width 13.4 % (11.5-14.5); Segmented Neutrophils % 60.7 %; White Blood Count 10.3 K/mcL (4.3-11.1)
[2020-01-01 13:54] LABS: Alanine Aminotransferase 13 Units/L (7-52); Albumin 3.4 g/dL (3.5-5.7); Albumin/Globulin Ratio 1.1 (1.1-2.2); Alkaline Phosphatase 80 Units/L (34-104); Aspartate Amino Transferase 33 Units/L (13-39); BUN/Creatinine Ratio 14 (6-26); Bilirubin,Total 0.5 mg/dL (0.3-1.0); Blood Urea Nitrogen 8 mg/dL (8-23); Carbon Dioxide 26 mEq/L (23-29); Chloride 101 mEq/L (98-107); Creatine Kinase 82 Units/L (30-223); Globulin 3.2 g/dL (2.4-3.5); Glucose 81 mg/dL (70-105); Magnesium 1.6 mg/dL (1.6-2.6); Osmolality,Calculated 283 (280-300); Potassium 3.4 mEq/L (3.5-5.1); Sodium 138 mEq/L (136-145); Total Protein 6.6 g/dL (6.4-8.9); eGFR For African Americans > 60 (> 60); eGFR For Non-African Americans > 60 (> 60)
[2020-01-01 13:56] LABS: Troponin I 0.23 ng/mL (< 0.04)
[2020-01-01] MEDS ORDERED: Vancomycin 1,500 MG/265 ML IV.SOLN IVPB ONE (14:35)
[2020-01-01] MEDS ORDERED: cefTRIAXone 1,000 MG in Water for inj. (sterile) 10 ML IVP ONE (14:47)
[2020-01-01] MEDS ORDERED: *HR* FentaNYL (PF) 100 MCG/2 ML VIAL IVP ONE (14:48)
[2020-01-01] MEDS ORDERED: 0.9 % Sodium Chloride 1,000 ML IVC ONE (14:51)
[2020-01-01] MEDS ORDERED: Aspirin 325 MG TABLET PO ONE (15:51)
[2020-01-01] MEDS ORDERED: Naloxone 0.4 MG/ML INJ IVP PRN (16:30)
[2020-01-01] MEDS ORDERED: *HR* Heparin 5,000 UNIT/ML VIAL IVP PRN ×2 (16:35)
[2020-01-01] MEDS ORDERED: *HR* Heparin 5,000 UNIT/ML VIAL IVP ONE (16:35)
[2020-01-01] MEDS ORDERED: Furosemide 20 MG/2 ML VIAL IVP ONE (17:16)
[2020-01-01] MEDS ORDERED: Albuterol 2.5 MG/3 ML NEBULIZER IH PRN (17:21)
[2020-01-01] MEDS: Heparin 25,000UNIT/250ML 1/2NS 25,000 UNIT/250 ML IV.SOLN IVC SCH (18:46)
[2020-01-01] MEDS: methIMAzole 5 MG TABLET PO SCH (18:46)
[2020-01-01 19:16] LABS: INR 1.2; Prothrombin Time 13.9 Seconds (9.4-12.1)
[2020-01-01] MEDS ORDERED: MOM Conc 10 ML UD.LIQ PO ONE (20:16)
[2020-01-01] MEDS: ALPRAZolam 1 MG TABLET PO SCH (20:43)
[2020-01-01] MEDS: 0.9 % Sodium Chloride 1,000 ML IVC SCH (20:44)
[2020-01-02] MEDS ORDERED: Acetaminophen IV 1,000 MG/100 ML INFUS..BTL IVPB ONE (00:59)
[2020-01-02 01:43] LABS: Basophils % 0.4 %; Eosinophils # 0.1 K/mcL (0.0-0.6); Eosinophils % 0.8 %; Hematocrit 44.1 % (35.3-44.9); Hemoglobin 14.1 g/dL (11.5-15.4); Immature Granulocytes % 0.5 % (0-4); Lymphocytes # 3.3 K/mcL (0.6-4.6); Lymphocytes % 31.1 %; Mean Corpuscular Hemoglobin 29.7 pg (28.0-33.3); Mean Corpuscular Volume 92.8 fL (83.0-100.0); Mean Platelet Volume 10.1 fL (9.4-12.4); Monocytes # 1.1 K/mcL (0.0-1.3); Monocytes % 10.1 %; Neutrophils # 6.1 K/mcL (1.6-8.9); Platelet Count 394 K/mcL (140-400); Red Blood Count 4.75 M/mcL (3.82-4.97); Red Cell Distribution Width 13.3 % (11.5-14.5); Segmented Neutrophils % 57.1 %; White Blood Count 10.6 K/mcL (4.3-11.1)
[2020-01-02 01:58] LABS: BUN/Creatinine Ratio 16 (6-26); Blood Urea Nitrogen 8 mg/dL (8-23); Calcium 8.4 mg/dL (8.6-10.3); Carbon Dioxide 25 mEq/L (23-29); Chloride 100 mEq/L (98-107); Glucose 75 mg/dL (70-105); Osmolality,Calculated 281 (280-300); Potassium 3.1 mEq/L (3.5-5.1); Sodium 137 mEq/L (136-145); eGFR For African Americans > 60 (> 60); eGFR For Non-African Americans > 60 (> 60)
[2020-01-02] MEDS: Vancomycin 1,500 MG/265 ML IV.SOLN IVPB SCH ×2 (04:59→15:36)
[2020-01-02] MEDS ORDERED: Dextrose Gel 15 GM/37.5 ML TUBE PO PRN ×2 (05:37)
[2020-01-02] MEDS ORDERED: D5% in Water 1,000 ML IVC PRN (05:37)
[2020-01-02] MEDS ORDERED: *HR* Dextrose 50 % in Water (Vial) 50 ML VIAL IVP PRN (05:37)
[2020-01-02] MEDS ORDERED: Potassium Chloride 40 MEQ, Lidocaine 1% 2 ML in 0.9 % Sodium Chloride 500 ML IVPB ONE (07:48)
[2020-01-02] MEDS ORDERED: *HR* Metoprolol 5 MG/5 ML VIAL IVP ONE (07:55)
[2020-01-02] MEDS: methIMAzole 5 MG TABLET PO SCH (09:21)
[2020-01-02] MEDS: Aspirin 81 MG TAB.CHEW PO SCH (09:21)
[2020-01-02] MEDS ORDERED: polyethylene glycoL 3350 17 GM POWD.PACK PO PRN (12:51)
[2020-01-02] MEDS ORDERED: Perflutren Lipid Microsphere 1.3 ML in 0.9 % Sodium Chloride 8.7 ML IVP PRN (13:38)
[2020-01-02] MEDS: cefTRIAXone 1,000 MG in Water for inj. (sterile) 10 ML IVP SCH (15:00)
[2020-01-02] MEDS: Isosorbide MONOnitrate (24 HR) 30 MG TAB.ER.24H PO SCH (15:01)
[2020-01-02] MEDS: Sennosides/Docusate Sodium TABLET PO SCH ×2 (15:01→22:48)
[2020-01-02] MEDS: Heparin 25,000UNIT/250ML 1/2NS 25,000 UNIT/250 ML IV.SOLN IVC SCH (15:01)
[2020-01-02] MEDS: Budesonide/Formoterol 80/4.5 1 PUFF INH IH SCH (20:17)
[2020-01-02] MEDS: *HR* Promethazine 25 MG/ML VIAL IVP PRN (21:07)
[2020-01-02] MEDS: Nystatin POWDER 30 GM BOTTLE TP SCH (22:47)
[2020-01-02] MEDS: Gabapentin 300 MG CAPSULE PO SCH (22:48)
[2020-01-02] MEDS: ALPRAZolam 1 MG TABLET PO SCH (22:48)
[2020-01-02] MEDS: Nystatin Cream 15 GM TUBE TP SCH (22:58)
[2020-01-03] MEDS ORDERED: 0.9 % Sodium Chloride 1,000 ML IVC ONE (01:57)
[2020-01-03] MEDS: 0.9 % Sodium Chloride 1,000 ML IVC SCH ×2 (03:16→15:48)
[2020-01-03 04:46] LABS: Hematocrit 37.8 % (35.3-44.9); Mean Corpuscular Hemoglobin 30.7 pg (28.0-33.3); Mean Corpuscular Volume 95.9 fL (83.0-100.0); Mean Platelet Volume 10.2 fL (9.4-12.4); Platelet Count 293 K/mcL (140-400); Red Blood Count 3.94 M/mcL (3.82-4.97); Red Cell Distribution Width 13.5 % (11.5-14.5); White Blood Count 7.9 K/mcL (4.3-11.1)
[2020-01-03 04:49] LABS: Hemoglobin 12.1 g/dL (11.5-15.4)
[2020-01-03 05:06] LABS: BUN/Creatinine Ratio 19 (6-26); Blood Urea Nitrogen 8 mg/dL (8-23); Calcium 8.2 mg/dL (8.6-10.3); Carbon Dioxide 23 mEq/L (23-29); Chloride 108 mEq/L (98-107); Glucose 88 mg/dL (70-105); Osmolality,Calculated 286 (280-300); Sodium 139 mEq/L (136-145); eGFR For African Americans > 60 (> 60); eGFR For Non-African Americans > 60 (> 60)
[2020-01-03] MEDS: Vancomycin 1,500 MG/265 ML IV.SOLN IVPB SCH ×2 (05:16→16:22)
[2020-01-03] MEDS: Aspirin 81 MG TAB.CHEW PO SCH (08:47)
[2020-01-03] MEDS: methIMAzole 5 MG TABLET PO SCH (08:47)
[2020-01-03] MEDS: Sennosides/Docusate Sodium TABLET PO SCH ×2 (08:47→22:03)
[2020-01-03] MEDS: Isosorbide MONOnitrate (24 HR) 30 MG TAB.ER.24H PO SCH (08:47)
[2020-01-03] MEDS: Gabapentin 300 MG CAPSULE PO SCH ×2 (08:48→21:53)
[2020-01-03] MEDS: Acetaminophen 325 MG TABLET PO PRN (08:48)
[2020-01-03] MEDS: Nystatin Cream 15 GM TUBE TP SCH ×2 (08:49→22:33)
[2020-01-03] MEDS: Nystatin POWDER 30 GM BOTTLE TP SCH ×2 (08:50→22:33)
[2020-01-03] MEDS: (Roflumilast [Daliresp] 500 MCG) PO SCH (08:51)
[2020-01-03] MEDS: Budesonide/Formoterol 80/4.5 1 PUFF INH IH SCH ×2 (08:53→21:54)
[2020-01-03] MEDS: Ipratropium 1 PUFF INHALER IH SCH (08:54)
[2020-01-03] MEDS: Heparin 25,000UNIT/250ML 1/2NS 25,000 UNIT/250 ML IV.SOLN IVC SCH (11:49)
[2020-01-03] MEDS ORDERED: 0.9 % Sodium Chloride 500 ML IV ONE ×2 (15:31→22:51)
[2020-01-03] MEDS ORDERED: 0.9 % Sodium Chloride 500 ML ONE (15:34)
[2020-01-03] MEDS: cefTRIAXone 1,000 MG in Water for inj. (sterile) 10 ML IVP SCH (15:41)
[2020-01-03] MEDS ORDERED: Morphine Sulfate 2 MG/ML SYRINGE IVP ONE (22:00)
[2020-01-03] MEDS ORDERED: cefTRIAXone 1,000 MG in Water for inj. (sterile) 10 ML IVP ONE (22:58)
[2020-01-04] MEDS: 0.9 % Sodium Chloride 1,000 ML IVC SCH ×2 (03:20→22:10)
[2020-01-04] MEDS: Vancomycin 1,500 MG/265 ML IV.SOLN IVPB SCH (03:21)
[2020-01-04] MEDS: Ipratropium 1 PUFF INHALER IH SCH (07:30)
[2020-01-04] MEDS: Budesonide/Formoterol 80/4.5 1 PUFF INH IH SCH ×2 (07:30→20:16)
[2020-01-04] MEDS: Aspirin 81 MG TAB.CHEW PO SCH (08:00)
[2020-01-04] MEDS: Sennosides/Docusate Sodium TABLET PO SCH ×2 (08:00→22:13)
[2020-01-04] MEDS: methIMAzole 5 MG TABLET PO SCH (08:00)
[2020-01-04] MEDS: Gabapentin 300 MG CAPSULE PO SCH ×2 (08:01→22:13)
[2020-01-04] MEDS: Nystatin Cream 15 GM TUBE TP SCH ×2 (08:02→22:14)
[2020-01-04] MEDS: Nystatin POWDER 30 GM BOTTLE TP SCH ×2 (08:02→22:14)
[2020-01-04] MEDS: (Roflumilast [Daliresp] 500 MCG) PO SCH (08:03)
[2020-01-04 08:37] LABS: Hematocrit 41.5 % (35.3-44.9); Hemoglobin 12.7 g/dL (11.5-15.4); Mean Corpuscular HGB Conc 30.6 g/dL (31.6-35.5); Mean Corpuscular Volume 98.1 fL (83.0-100.0); Platelet Count 321 K/mcL (140-400); Red Blood Count 4.23 M/mcL (3.82-4.97); Red Cell Distribution Width 13.9 % (11.5-14.5); White Blood Count 9.6 K/mcL (4.3-11.1)
[2020-01-04 09:08] LABS: BUN/Creatinine Ratio 14 (6-26); Blood Urea Nitrogen 8 mg/dL (8-23); Calcium 8.5 mg/dL (8.6-10.3); Carbon Dioxide 22 mEq/L (23-29); Chloride 111 mEq/L (98-107); Glucose 85 mg/dL (70-105); Osmolality,Calculated 292 (280-300); Sodium 142 mEq/L (136-145); eGFR For African Americans > 60 (> 60); eGFR For Non-African Americans > 60 (> 60)
[2020-01-04] MEDS: *HR* Heparin 5,000 UNIT/ML VIAL SQ SCH ×2 (15:19→22:12)
[2020-01-04] MEDS: Piperacillin/Tazobactam 3.375 GM in 0.9 % Sodium Chloride Mini Bag 100 ML IVPB SCH (17:04)
[2020-01-04] MEDS: Acetaminophen 325 MG TABLET PO PRN (22:12)
[2020-01-04] MEDS ORDERED: cefTRIAXone 2,000 MG in Water for inj. (sterile) 10 ML IVP SCH (23:00)
[2020-01-04] MEDS ORDERED: Piperacillin/Tazobactam 3.375 GM VIAL ONE (23:05)
[2020-01-05] MEDS: Piperacillin/Tazobactam 3.375 GM in 0.9 % Sodium Chloride Mini Bag 100 ML IVPB SCH ×3 (00:08→18:29)
[2020-01-05 04:53] LABS: Hematocrit 37.7 % (35.3-44.9); Hemoglobin 11.7 g/dL (11.5-15.4); Mean Corpuscular Hemoglobin 30.9 pg (28.0-33.3); Mean Corpuscular Volume 99.5 fL (83.0-100.0); Mean Platelet Volume 10.2 fL (9.4-12.4); Platelet Count 325 K/mcL (140-400); Red Blood Count 3.79 M/mcL (3.82-4.97); Red Cell Distribution Width 14.2 % (11.5-14.5); White Blood Count 9.3 K/mcL (4.3-11.1)
[2020-01-05 05:04] LABS: BUN/Creatinine Ratio 16 (6-26); Blood Urea Nitrogen 10 mg/dL (8-23); Calcium 8.4 mg/dL (8.6-10.3); Carbon Dioxide 23 mEq/L (23-29); Chloride 112 mEq/L (98-107); Glucose 74 mg/dL (70-105); Osmolality,Calculated 292 (280-300); Potassium 3.2 mEq/L (3.5-5.1); Sodium 142 mEq/L (136-145); eGFR For African Americans > 60 (> 60); eGFR For Non-African Americans > 60 (> 60)
[2020-01-05] MEDS: *HR* Heparin 5,000 UNIT/ML VIAL SQ SCH ×3 (05:37→21:00)
[2020-01-05] MEDS: Budesonide/Formoterol 80/4.5 1 PUFF INH IH SCH ×2 (07:25→22:35)
[2020-01-05] MEDS: Ipratropium 1 PUFF INHALER IH SCH (07:26)
[2020-01-05] MEDS: Sennosides/Docusate Sodium TABLET PO SCH ×2 (10:15→20:59)
[2020-01-05] MEDS: Aspirin 81 MG TAB.CHEW PO SCH (10:15)
[2020-01-05] MEDS: Gabapentin 300 MG CAPSULE PO SCH ×2 (10:16→21:00)
[2020-01-05] MEDS: Nystatin Cream 15 GM TUBE TP SCH (10:22)
[2020-01-05] MEDS: methIMAzole 5 MG TABLET PO SCH (10:26)
[2020-01-05] MEDS: Nystatin POWDER 30 GM BOTTLE TP SCH (10:26)
[2020-01-05] MEDS: Ondansetron ODT 4 MG TAB.RAPDIS SL PRN (14:25)
[2020-01-05] MEDS: *HR* Promethazine 25 MG/ML VIAL IVP PRN (21:09)
[2020-01-06] MEDS: Piperacillin/Tazobactam 3.375 GM in 0.9 % Sodium Chloride Mini Bag 100 ML IVPB SCH ×3 (01:36→16:39)
[2020-01-06] MEDS ORDERED: Vancomycin 1,500 MG/265 ML IV.SOLN IVPB SCH (03:00)
[2020-01-06] MEDS: Nystatin POWDER 30 GM BOTTLE TP SCH ×4 (04:13→20:56)
[2020-01-06] MEDS: Nystatin Cream 15 GM TUBE TP SCH ×4 (04:13→20:56)
[2020-01-06] MEDS: *HR* Heparin 5,000 UNIT/ML VIAL SQ SCH ×3 (06:01→20:55)
[2020-01-06] MEDS: Ipratropium 1 PUFF INHALER IH SCH (07:32)
[2020-01-06] MEDS: Budesonide/Formoterol 80/4.5 1 PUFF INH IH SCH ×2 (07:32→20:13)
[2020-01-06] MEDS: Aspirin 81 MG TAB.CHEW PO SCH (09:50)
[2020-01-06] MEDS: Gabapentin 300 MG CAPSULE PO SCH ×3 (09:50→20:55)
[2020-01-06] MEDS: Sennosides/Docusate Sodium TABLET PO SCH ×2 (09:50→20:55)
[2020-01-06] MEDS: methIMAzole 5 MG TABLET PO SCH (10:04)
[2020-01-06] MEDS ORDERED: POTASSIUM CHLORIDE IN 0.9%NACL 40 MEQ/1,000 ML IV.SOLN IV ONE (14:11)
[2020-01-06] MEDS ORDERED: Potassium Chloride 40 MEQ, Lidocaine 1% 2 ML in 0.9 % Sodium Chloride 500 ML IVPB ONE (14:30)
[2020-01-06] MEDS ORDERED: *HR* Metoprolol 5 MG/5 ML VIAL IVP ONE (16:27)
[2020-01-06] MEDS: 0.9 % Sodium Chloride 1,000 ML IVC SCH ×3 (18:52→21:11)
[2020-01-06] MEDS: Vancomycin 1,500 MG/265 ML IV.SOLN IVPB SCH (19:50)
[2020-01-06] MEDS: Ondansetron ODT 4 MG TAB.RAPDIS SL PRN (21:09)
[2020-01-07] MEDS: Piperacillin/Tazobactam 3.375 GM in 0.9 % Sodium Chloride Mini Bag 100 ML IVPB SCH ×3 (00:38→17:13)
[2020-01-07 04:39] LABS: BUN/Creatinine Ratio 18 (6-26); Blood Urea Nitrogen 9 mg/dL (8-23); Vancomycin,Trough 17 mcg/mL (5-10); eGFR For African Americans > 60 (> 60); eGFR For Non-African Americans > 60 (> 60)
[2020-01-07] MEDS: *HR* Heparin 5,000 UNIT/ML VIAL SQ SCH ×3 (06:01→22:02)
[2020-01-07] MEDS: Ipratropium 1 PUFF INHALER IH SCH (07:46)
[2020-01-07] MEDS: Budesonide/Formoterol 80/4.5 1 PUFF INH IH SCH ×2 (07:46→19:53)
[2020-01-07 08:48] LABS: Hematocrit 33.7 % (35.3-44.9); Hemoglobin 10.5 g/dL (11.5-15.4); Mean Corpuscular HGB Conc 31.2 g/dL (31.6-35.5); Mean Corpuscular Hemoglobin 31.3 pg (28.0-33.3); Mean Corpuscular Volume 100.6 fL (83.0-100.0); Mean Platelet Volume 10.5 fL (9.4-12.4); Platelet Count 306 K/mcL (140-400); Red Blood Count 3.35 M/mcL (3.82-4.97); Red Cell Distribution Width 14.6 % (11.5-14.5); White Blood Count 8.7 K/mcL (4.3-11.1)
[2020-01-07 08:56] LABS: BUN/Creatinine Ratio 15 (6-26); Blood Urea Nitrogen 8 mg/dL (8-23); Calcium 8.7 mg/dL (8.6-10.3); Carbon Dioxide 21 mEq/L (23-29); Chloride 114 mEq/L (98-107); Glucose 101 mg/dL (70-105); Osmolality,Calculated 296 (280-300); Potassium 3.6 mEq/L (3.5-5.1); Sodium 144 mEq/L (136-145); eGFR For African Americans > 60 (> 60); eGFR For Non-African Americans > 60 (> 60)
[2020-01-07] MEDS: Sennosides/Docusate Sodium TABLET PO SCH ×2 (09:39→22:01)
[2020-01-07] MEDS: Ondansetron ODT 4 MG TAB.RAPDIS SL PRN ×2 (09:39→22:01)
[2020-01-07] MEDS: Gabapentin 300 MG CAPSULE PO SCH ×2 (09:40→22:01)
[2020-01-07] MEDS: methIMAzole 5 MG TABLET PO SCH (09:40)
[2020-01-07] MEDS: Aspirin 81 MG TAB.CHEW PO SCH (09:40)
[2020-01-07] MEDS: *HR* Promethazine 25 MG/ML VIAL IVP PRN (14:19)
[2020-01-07] MEDS: Nystatin Cream 15 GM TUBE TP SCH ×2 (17:06→22:01)
[2020-01-07] MEDS: Nystatin POWDER 30 GM BOTTLE TP SCH ×2 (17:06→22:01)
[2020-01-07] MEDS: Acetaminophen 325 MG TABLET PO PRN (17:15)
[2020-01-08] MEDS: Piperacillin/Tazobactam 3.375 GM in 0.9 % Sodium Chloride Mini Bag 100 ML IVPB SCH ×2 (00:20→08:48)
[2020-01-08] MEDS: Acetaminophen 325 MG TABLET PO PRN (03:14)
[2020-01-08 05:50] LABS: Hematocrit 34.2 % (35.3-44.9); Hemoglobin 10.5 g/dL (11.5-15.4); Mean Corpuscular HGB Conc 30.7 g/dL (31.6-35.5); Mean Corpuscular Hemoglobin 30.3 pg (28.0-33.3); Mean Corpuscular Volume 98.6 fL (83.0-100.0); Mean Platelet Volume 10.5 fL (9.4-12.4); Platelet Count 339 K/mcL (140-400); Red Blood Count 3.47 M/mcL (3.82-4.97); Red Cell Distribution Width 14.6 % (11.5-14.5); White Blood Count 8.6 K/mcL (4.3-11.1)
[2020-01-08 06:03] LABS: BUN/Creatinine Ratio 11 (6-26); Blood Urea Nitrogen 7 mg/dL (8-23); Calcium 8.8 mg/dL (8.6-10.3); Carbon Dioxide 23 mEq/L (23-29); Chloride 112 mEq/L (98-107); Glucose 96 mg/dL (70-105); Osmolality,Calculated 292 (280-300); Sodium 142 mEq/L (136-145); eGFR For African Americans > 60 (> 60); eGFR For Non-African Americans > 60 (> 60)
[2020-01-08] MEDS: *HR* Heparin 5,000 UNIT/ML VIAL SQ SCH ×2 (06:47→14:35)
[2020-01-08] MEDS: Budesonide/Formoterol 80/4.5 1 PUFF INH IH SCH ×2 (07:34→20:29)
[2020-01-08] MEDS: Ipratropium 1 PUFF INHALER IH SCH (07:34)
[2020-01-08] MEDS ORDERED: Potassium Chloride 40 MEQ, Lidocaine 1% 2 ML in 0.9 % Sodium Chloride 500 ML IVPB ONE (07:52)
[2020-01-08 08:10] LABS: Magnesium 1.8 mg/dL (1.6-2.6)
[2020-01-08] MEDS: Sennosides/Docusate Sodium TABLET PO SCH (08:47)
[2020-01-08] MEDS: Aspirin 81 MG TAB.CHEW PO SCH (08:48)
[2020-01-08] MEDS: methIMAzole 5 MG TABLET PO SCH (08:48)
[2020-01-08] MEDS: Gabapentin 300 MG CAPSULE PO SCH (08:50)
[2020-01-08] MEDS: Nystatin POWDER 30 GM BOTTLE TP SCH (09:00)
[2020-01-08] MEDS: Nystatin Cream 15 GM TUBE TP SCH (09:01)
[2020-01-08] MEDS ORDERED: levoFLOXacin 750 MG TABLET PO SCH (09:30)
[2020-01-08 13:08] LABS: Adenovirus Not Detected (Not Detect); Bordetella Pertussis Not Detected (Not Detect); Chlamydophila pneumoniae Not Detected (Not Detect); Coronavirus 229E Not Detected (Not Detect); Coronavirus HKU1 Not Detected (Not Detect); Coronavirus NL63 Not Detected (Not Detect); Coronavirus OC43 Not Detected (Not Detect); Human Metapneumovirus Not Detected (Not Detect); Human Rhinovirus/Enterovirus Not Detected (Not Detect); Influenza A Subtype 2009 H1 Not Detected (Not Detect); Influenza B Not Detected (Not Detect); Mycoplasma pneumoniae Not Detected (Not Detect); Parainfluenza Virus 1 Not Detected (Not Detect); Parainfluenza Virus 2 Not Detected (Not Detect); Parainfluenza Virus 3 Not Detected (Not Detect); Parainfluenza Virus 4 Not Detected (Not Detect); Respiratory Syncytial Virus Not Detected (Not Detect); SARS-CoV-2 Not Detected (Not Detect)
[2020-01-08] MEDS: Ondansetron ODT 4 MG TAB.RAPDIS SL PRN (14:47)
[2020-01-08 19:26] VITALS: BP 145/78
== END 2020-01-08 22:00 | disposition left against medical advice (07) | DRG 194 ==
LOC: 3ANU 12:30 → EMEROOARM 12:30 → SUATTDRO 15:17 → 3ANU 16:18
PROVIDERS: ADMIT Family Medicine; ATTEND Family Medicine

== ENCOUNTER 2020-02-19 19:36 | Inpatient (IN) ==
[2020-02-19] MEDS ORDERED: Ondansetron 4 MG/2 ML VIAL IVP ONE (20:03)
[2020-02-19] MEDS ORDERED: 0.9 % Sodium Chloride 1,000 ML IVC ONE ×2 (20:03→21:00)
[2020-02-19 20:15] LABS: Basophils % 0.4 %; Eosinophils % 0.2 %; Hematocrit 47.2 % (35.3-44.9); Immature Granulocytes % 0.6 % (0-4); Lymphocytes # 2.2 K/mcL (0.6-4.6); Lymphocytes % 21.4 %; Mean Corpuscular HGB Conc 31.8 g/dL (31.6-35.5); Mean Corpuscular Hemoglobin 31.3 pg (28.0-33.3); Mean Corpuscular Volume 98.5 fL (83.0-100.0); Mean Platelet Volume 10.3 fL (9.4-12.4); Monocytes # 0.9 K/mcL (0.0-1.3); Monocytes % 8.4 %; Neutrophils # 7.2 K/mcL (1.6-8.9); Platelet Count 349 K/mcL (140-400); Red Blood Count 4.79 M/mcL (3.82-4.97); Red Cell Distribution Width 16.4 % (11.5-14.5); White Blood Count 10.4 K/mcL (4.3-11.1)
[2020-02-19 20:44] LABS: Bacteria,Urine Few per hpf (None-Few); Bilirubin,Urine Negative (Negative); Blood,Urine Small (Negative); Clarity,Urine Clear (Clear); Color,Urine Yellow (Yellow); Glucose,Urine (UA) Normal (Normal); Ketones,Urine Trace mg/dL (Negative); Leukocyte Esterase,Urine Moderate (Negative); Mucus,Urine Few per lpf (None-Few); Nitrite,Urine Negative (Negative); PH,Urine 6.5 pH Units (5.0-8.0); Protein,Urine Trace mg/dL (Neg-Trace); RBC,Urine 0-3 per hpf (0-3); Specific Gravity,Urine 1.011 (1.010-1.025); Squamous Epithelial Cell,Urine Few per hpf (None-Few); WBC,Urine 15-30 per hpf (0-3)
[2020-02-19 20:50] LABS: Alanine Aminotransferase 8 Units/L (7-52); Albumin 3.2 g/dL (3.5-5.7); Albumin/Globulin Ratio 1.2 (1.1-2.2); Alkaline Phosphatase 63 Units/L (34-104); Aspartate Amino Transferase 16 Units/L (13-39); BUN/Creatinine Ratio 12 (6-26); Bilirubin,Direct 0.3 mg/dL (0.0-0.2); Bilirubin,Indirect 0.4 mg/dL (0.0-1.0); Bilirubin,Total 0.7 mg/dL (0.3-1.0); Blood Urea Nitrogen 6 mg/dL (8-23); Calcium 8.7 mg/dL (8.6-10.3); Carbon Dioxide 36 mEq/L (23-29); Chloride 91 mEq/L (98-107); Globulin 2.7 g/dL (2.4-3.5); Glucose 81 mg/dL (70-105); Lipase 15 Units/L (11-82); Osmolality,Calculated 291 (280-300); Potassium 2.3 mEq/L (3.5-5.1); Sodium 142 mEq/L (136-145); Total Protein 5.9 g/dL (6.4-8.9); Troponin I 0.03 ng/mL (< 0.04); eGFR For African Americans > 60 (> 60); eGFR For Non-African Americans > 60 (> 60)
[2020-02-19] MEDS ORDERED: Potassium Chloride 40 MEQ, Lidocaine 1% 2 ML in 0.9 % Sodium Chloride 500 ML IVPB ONE (20:50)
[2020-02-19 21:09] LABS: Magnesium 1.8 mg/dL (1.6-2.6)
[2020-02-20] MEDS ORDERED: Prochlorperazine 10 MG/2 ML VIAL IVP ONE (02:19)
[2020-02-20] MEDS ORDERED: Naloxone 0.4 MG/ML INJ IVP PRN (04:26)
[2020-02-20] MEDS ORDERED: Albuterol 2.5 MG/3 ML NEBULIZER IH PRN (04:28)
[2020-02-20 05:33] LABS: Basophils % 0.3 %; Eosinophils % 0.2 %; Hematocrit 45.5 % (35.3-44.9); Hemoglobin 14.5 g/dL (11.5-15.4); Immature Granulocytes % 0.8 % (0-4); Lymphocytes % 20.8 %; Mean Corpuscular HGB Conc 31.9 g/dL (31.6-35.5); Mean Corpuscular Hemoglobin 31.9 pg (28.0-33.3); Mean Platelet Volume 10.5 fL (9.4-12.4); Monocytes # 0.8 K/mcL (0.0-1.3); Monocytes % 8.4 %; Neutrophils # 6.7 K/mcL (1.6-8.9); Platelet Count 332 K/mcL (140-400); Red Blood Count 4.55 M/mcL (3.82-4.97); Red Cell Distribution Width 16.2 % (11.5-14.5); Segmented Neutrophils % 69.5 %; White Blood Count 9.7 K/mcL (4.3-11.1)
[2020-02-20 05:49] LABS: BUN/Creatinine Ratio 12 (6-26); Blood Urea Nitrogen 5 mg/dL (8-23); Calcium 8.1 mg/dL (8.6-10.3); Carbon Dioxide 36 mEq/L (23-29); Chloride 97 mEq/L (98-107); Glucose 82 mg/dL (70-105); Osmolality,Calculated 292 (280-300); Potassium 2.3 mEq/L (3.5-5.1); Sodium 143 mEq/L (136-145); eGFR For African Americans > 60 (> 60); eGFR For Non-African Americans > 60 (> 60)
[2020-02-20 05:58] LABS: Thyroid Stimulating Hormone 0.023 mcIU/mL (0.340-5.600)
[2020-02-20] MEDS: POTASSIUM CHLORIDE IVC SCH ×2 (06:21→14:30)
[2020-02-20] MEDS: RINGERS IVC SCH ×2 (06:21→14:30)
[2020-02-20] MEDS: LACTATED IVC SCH ×2 (06:21→14:30)
[2020-02-20] MEDS ORDERED: Potassium Chloride 40 MEQ, Lidocaine 1% 2 ML in 0.9 % Sodium Chloride 500 ML IVPB ONE (06:59)
[2020-02-20] MEDS: Potassium Chloride Elixir 20 MEQ/15 ML UDC PO SCH ×2 (08:04→22:58)
[2020-02-20] MEDS: Gabapentin 300 MG CAPSULE PO SCH ×2 (08:05→22:58)
[2020-02-20] MEDS ORDERED: methIMAzole 5 MG TABLET PO SCH (09:00)
[2020-02-20] MEDS: Ipratropium 1 PUFF INHALER IH SCH (10:13)
[2020-02-20] MEDS: propylthiouraciL 50 MG TABLET PO SCH ×3 (10:23→22:58)
[2020-02-20] MEDS: Ondansetron 4 MG/2 ML VIAL IVP PRN (11:54)
[2020-02-20] MEDS: Metoclopramide 10 MG/2 ML VIAL IVP SCH ×3 (12:34→19:46)
[2020-02-20] MEDS: Budesonide/Formoterol 80/4.5 1 PUFF INH IH SCH (22:12)
[2020-02-20] MEDS: ALPRAZolam 1 MG TABLET PO SCH (22:58)
[2020-02-21] MEDS: ALPRAZolam 1 MG TABLET PO SCH ×2 (00:16→22:01)
[2020-02-21] MEDS: Ondansetron 4 MG/2 ML VIAL IVP PRN ×3 (00:17→21:56)
[2020-02-21] MEDS: POTASSIUM CHLORIDE IVC SCH ×2 (00:24→09:53)
[2020-02-21] MEDS: RINGERS IVC SCH ×2 (00:24→09:53)
[2020-02-21] MEDS: LACTATED IVC SCH ×2 (00:24→09:53)
[2020-02-21 01:28] LABS: Basophils % 0.5 %; Eosinophils # 0.1 K/mcL (0.0-0.6); Eosinophils % 0.6 %; Hematocrit 42.3 % (35.3-44.9); Hemoglobin 13.6 g/dL (11.5-15.4); Immature Granulocytes % 0.6 % (0-4); Lymphocytes # 1.3 K/mcL (0.6-4.6); Lymphocytes % 16.2 %; Mean Corpuscular HGB Conc 32.2 g/dL (31.6-35.5); Mean Corpuscular Hemoglobin 32.2 pg (28.0-33.3); Mean Platelet Volume 10.4 fL (9.4-12.4); Monocytes # 0.7 K/mcL (0.0-1.3); Monocytes % 8.8 %; Neutrophils # 6.1 K/mcL (1.6-8.9); Platelet Count 316 K/mcL (140-400); Red Blood Count 4.23 M/mcL (3.82-4.97); Red Cell Distribution Width 16.3 % (11.5-14.5); Segmented Neutrophils % 73.3 %; White Blood Count 8.3 K/mcL (4.3-11.1)
[2020-02-21 01:40] LABS: INR 1.2; Prothrombin Time 13.6 Seconds (9.4-12.1)
[2020-02-21 01:49] LABS: BUN/Creatinine Ratio 10 (6-26); Blood Urea Nitrogen 4 mg/dL (8-23); Calcium 8.1 mg/dL (8.6-10.3); Carbon Dioxide 33 mEq/L (23-29); Chloride 98 mEq/L (98-107); Glucose 87 mg/dL (70-105); Magnesium 1.6 mg/dL (1.6-2.6); Osmolality,Calculated 290 (280-300); Potassium 2.6 mEq/L (3.5-5.1); Sodium 142 mEq/L (136-145); eGFR For African Americans > 60 (> 60); eGFR For Non-African Americans > 60 (> 60)
[2020-02-21] MEDS: Ipratropium 1 PUFF INHALER IH SCH (07:47)
[2020-02-21] MEDS: Budesonide/Formoterol 80/4.5 1 PUFF INH IH SCH ×2 (07:47→20:16)
[2020-02-21] MEDS: propylthiouraciL 50 MG TABLET PO SCH ×2 (07:53→14:23)
[2020-02-21] MEDS: Gabapentin 300 MG CAPSULE PO SCH ×2 (07:53→22:01)
[2020-02-21] MEDS: Metoclopramide 10 MG/2 ML VIAL IVP SCH ×3 (07:53→22:01)
[2020-02-21] MEDS: Potassium Chloride Elixir 20 MEQ/15 ML UDC PO SCH (07:54)
[2020-02-21] MEDS ORDERED: (Roflumilast [Daliresp] 500 MCG) PO SCH (09:00)
[2020-02-21] MEDS ORDERED: cefTRIAXone 1,000 MG in 0.9 % Sodium Chloride Mini Bag 100 ML IVP SCH (11:00)
[2020-02-21] MEDS: Piperacillin/Tazobactam 3.375 GM in 0.9 % Sodium Chloride Mini Bag 100 ML IVPB SCH ×2 (11:17→21:58)
[2020-02-22] MEDS: propylthiouraciL 50 MG TABLET PO SCH ×4 (00:36→22:24)
[2020-02-22] MEDS: Benzonatate 100 MG CAPSULE PO PRN (01:05)
[2020-02-22 05:08] LABS: Basophils % 0.6 %; Eosinophils # 0.1 K/mcL (0.0-0.6); Eosinophils % 1.7 %; Hematocrit 39.8 % (35.3-44.9); Hemoglobin 12.6 g/dL (11.5-15.4); Immature Granulocytes % 0.5 % (0-4); Lymphocytes # 2.2 K/mcL (0.6-4.6); Lymphocytes % 32.8 %; Mean Corpuscular HGB Conc 31.7 g/dL (31.6-35.5); Mean Corpuscular Hemoglobin 32.2 pg (28.0-33.3); Mean Corpuscular Volume 101.8 fL (83.0-100.0); Mean Platelet Volume 10.4 fL (9.4-12.4); Monocytes # 0.7 K/mcL (0.0-1.3); Monocytes % 10.4 %; Neutrophils # 3.6 K/mcL (1.6-8.9); Platelet Count 282 K/mcL (140-400); Red Blood Count 3.91 M/mcL (3.82-4.97); Red Cell Distribution Width 16.3 % (11.5-14.5); White Blood Count 6.6 K/mcL (4.3-11.1)
[2020-02-22 05:13] LABS: BUN/Creatinine Ratio 8 (6-26); Blood Urea Nitrogen 3 mg/dL (8-23); Calcium 7.8 mg/dL (8.6-10.3); Carbon Dioxide 34 mEq/L (23-29); Chloride 100 mEq/L (98-107); Glucose 80 mg/dL (70-105); Magnesium 1.6 mg/dL (1.6-2.6); Osmolality,Calculated 290 (280-300); Potassium 2.6 mEq/L (3.5-5.1); Sodium 142 mEq/L (136-145); eGFR For African Americans > 60 (> 60); eGFR For Non-African Americans > 60 (> 60)
[2020-02-22] MEDS: Piperacillin/Tazobactam 3.375 GM in 0.9 % Sodium Chloride Mini Bag 100 ML IVPB SCH ×3 (05:35→22:22)
[2020-02-22] MEDS: Ondansetron 4 MG/2 ML VIAL IVP PRN ×2 (06:37→22:51)
[2020-02-22] MEDS: POTASSIUM CHLORIDE IVC SCH ×2 (07:26→12:54)
[2020-02-22] MEDS: RINGERS IVC SCH ×2 (07:26→12:54)
[2020-02-22] MEDS: LACTATED IVC SCH ×2 (07:26→12:54)
[2020-02-22] MEDS: Ipratropium 1 PUFF INHALER IH SCH (07:57)
[2020-02-22] MEDS: Budesonide/Formoterol 80/4.5 1 PUFF INH IH SCH ×2 (07:57→20:54)
[2020-02-22] MEDS ORDERED: Potassium Chloride 40 MEQ, Lidocaine 1% 2 ML in 0.9 % Sodium Chloride 500 ML IVPB ONE (08:14)
[2020-02-22 08:38] LABS: Phosphorous 2.6 mg/dL (2.7-4.5)
[2020-02-22] MEDS: Metoclopramide 10 MG/2 ML VIAL IVP SCH (09:09)
[2020-02-22] MEDS: Gabapentin 300 MG CAPSULE PO SCH ×2 (09:09→22:24)
[2020-02-22] MEDS: *HR* Promethazine 25 MG/ML VIAL IM PRN (13:48)
[2020-02-22] MEDS: ALPRAZolam 1 MG TABLET PO SCH (22:24)
[2020-02-23] MEDS: Piperacillin/Tazobactam 3.375 GM in 0.9 % Sodium Chloride Mini Bag 100 ML IVPB SCH ×2 (03:51→10:31)
[2020-02-23] MEDS: Benzonatate 100 MG CAPSULE PO PRN (03:53)
[2020-02-23 06:40] LABS: Basophils # 0.1 K/mcL (0.0-0.2); Basophils % 0.8 %; Eosinophils # 0.1 K/mcL (0.0-0.6); Hemoglobin 13.1 g/dL (11.5-15.4); Immature Granulocytes % 0.5 % (0-4); Lymphocytes # 2.2 K/mcL (0.6-4.6); Lymphocytes % 33.7 %; Mean Corpuscular HGB Conc 31.2 g/dL (31.6-35.5); Mean Corpuscular Volume 102.4 fL (83.0-100.0); Mean Platelet Volume 10.3 fL (9.4-12.4); Monocytes # 0.7 K/mcL (0.0-1.3); Monocytes % 10.2 %; Neutrophils # 3.4 K/mcL (1.6-8.9); Platelet Count 278 K/mcL (140-400); Red Cell Distribution Width 16.1 % (11.5-14.5); Segmented Neutrophils % 52.8 %; White Blood Count 6.5 K/mcL (4.3-11.1)
[2020-02-23 07:04] LABS: BUN/Creatinine Ratio 8 (6-26); Blood Urea Nitrogen 4 mg/dL (8-23); Calcium 8.2 mg/dL (8.6-10.3); Carbon Dioxide 34 mEq/L (23-29); Chloride 103 mEq/L (98-107); Glucose 75 mg/dL (70-105); Osmolality,Calculated 290 (280-300); Potassium 3.2 mEq/L (3.5-5.1); Sodium 142 mEq/L (136-145); eGFR For African Americans > 60 (> 60); eGFR For Non-African Americans > 60 (> 60)
[2020-02-23] MEDS: Budesonide/Formoterol 80/4.5 1 PUFF INH IH SCH ×2 (07:56→20:52)
[2020-02-23] MEDS: Ipratropium 1 PUFF INHALER IH SCH (07:57)
[2020-02-23] MEDS: propylthiouraciL 50 MG TABLET PO SCH ×3 (08:04→21:29)
[2020-02-23] MEDS: Gabapentin 300 MG CAPSULE PO SCH ×2 (08:04→21:29)
[2020-02-23 08:13] LABS: Magnesium 1.4 mg/dL (1.6-2.6); Phosphorous 2.6 mg/dL (2.7-4.5)
[2020-02-23] MEDS: Ondansetron 4 MG/2 ML VIAL IVP PRN ×2 (08:13→21:41)
[2020-02-23] MEDS ORDERED: Potassium Phosphate 44 MEQ in 0.9 % Sodium Chloride 250 ML IVPB ONE (13:00)
[2020-02-23] MEDS: RINGERS IVC SCH (19:38)
[2020-02-23] MEDS: POTASSIUM CHLORIDE IVC SCH (19:38)
[2020-02-23] MEDS: LACTATED IVC SCH (19:38)
[2020-02-23] MEDS: ALPRAZolam 1 MG TABLET PO SCH (21:29)
[2020-02-24 07:07] LABS: Basophils # 0.1 K/mcL (0.0-0.2); Basophils % 0.7 %; Eosinophils # 0.2 K/mcL (0.0-0.6); Eosinophils % 2.1 %; Hematocrit 44.8 % (35.3-44.9); Hemoglobin 13.9 g/dL (11.5-15.4); Immature Granulocytes % 0.8 % (0-4); Lymphocytes # 2.6 K/mcL (0.6-4.6); Lymphocytes % 34.1 %; Mean Corpuscular Hemoglobin 32.2 pg (28.0-33.3); Mean Corpuscular Volume 103.7 fL (83.0-100.0); Mean Platelet Volume 10.1 fL (9.4-12.4); Monocytes # 0.8 K/mcL (0.0-1.3); Monocytes % 10.3 %; Platelet Count 284 K/mcL (140-400); Red Blood Count 4.32 M/mcL (3.82-4.97); Red Cell Distribution Width 16.1 % (11.5-14.5); White Blood Count 7.6 K/mcL (4.3-11.1)
[2020-02-24] MEDS: Ipratropium 1 PUFF INHALER IH SCH (07:25)
[2020-02-24] MEDS: Budesonide/Formoterol 80/4.5 1 PUFF INH IH SCH ×2 (07:26→22:34)
[2020-02-24 07:27] LABS: BUN/Creatinine Ratio 12 (6-26); Blood Urea Nitrogen 6 mg/dL (8-23); Calcium 8.2 mg/dL (8.6-10.3); Carbon Dioxide 32 mEq/L (23-29); Chloride 102 mEq/L (98-107); Glucose 77 mg/dL (70-105); Magnesium 2.2 mg/dL (1.6-2.6); Osmolality,Calculated 284 (280-300); Phosphorous 3.4 mg/dL (2.7-4.5); Sodium 139 mEq/L (136-145); eGFR For African Americans > 60 (> 60); eGFR For Non-African Americans > 60 (> 60)
[2020-02-24] MEDS: Ondansetron 4 MG/2 ML VIAL IVP PRN ×2 (08:44→22:25)
[2020-02-24] MEDS: propylthiouraciL 50 MG TABLET PO SCH ×3 (08:45→22:25)
[2020-02-24] MEDS: Gabapentin 300 MG CAPSULE PO SCH ×2 (08:45→22:25)
[2020-02-24] MEDS: *HR* Promethazine 25 MG/ML VIAL IM PRN (16:37)
[2020-02-24] MEDS: ALPRAZolam 1 MG TABLET PO SCH (22:25)
[2020-02-25] MEDS ORDERED: Ibuprofen 400 MG TABLET PO PRN (00:45)
[2020-02-25 03:38] VITALS: BP 131/83
[2020-02-25 06:51] LABS: Basophils % 0.6 %; Eosinophils # 0.2 K/mcL (0.0-0.6); Eosinophils % 2.5 %; Hematocrit 47.9 % (35.3-44.9); Hemoglobin 14.8 g/dL (11.5-15.4); Immature Granulocytes % 0.6 % (0-4); Lymphocytes # 2.5 K/mcL (0.6-4.6); Lymphocytes % 36.6 %; Mean Corpuscular HGB Conc 30.9 g/dL (31.6-35.5); Mean Corpuscular Hemoglobin 32.2 pg (28.0-33.3); Mean Corpuscular Volume 104.1 fL (83.0-100.0); Mean Platelet Volume 9.8 fL (9.4-12.4); Monocytes # 0.5 K/mcL (0.0-1.3); Monocytes % 7.8 %; Neutrophils # 3.6 K/mcL (1.6-8.9); Platelet Count 282 K/mcL (140-400); Red Cell Distribution Width 15.9 % (11.5-14.5); Segmented Neutrophils % 51.9 %; White Blood Count 6.9 K/mcL (4.3-11.1)
[2020-02-25 07:12] LABS: BUN/Creatinine Ratio 12 (6-26); Blood Urea Nitrogen 8 mg/dL (8-23); Calcium 8.8 mg/dL (8.6-10.3); Carbon Dioxide 33 mEq/L (23-29); Chloride 101 mEq/L (98-107); Glucose 77 mg/dL (70-105); Osmolality,Calculated 289 (280-300); Phosphorous 3.5 mg/dL (2.7-4.5); Sodium 141 mEq/L (136-145); eGFR For African Americans > 60 (> 60); eGFR For Non-African Americans > 60 (> 60)
[2020-02-25] MEDS: Ipratropium 1 PUFF INHALER IH SCH (08:01)
[2020-02-25] MEDS: Budesonide/Formoterol 80/4.5 1 PUFF INH IH SCH (08:01)
[2020-02-25] MEDS: Gabapentin 300 MG CAPSULE PO SCH (09:50)
[2020-02-25] MEDS: propylthiouraciL 50 MG TABLET PO SCH ×2 (09:50→13:49)
[2020-02-25] MEDS: Ondansetron 4 MG/2 ML VIAL IVP PRN (09:57)
[2020-02-25] MEDS ORDERED: FLU Vac QV 20-21 (6Month+)/PF 0.5 ML SYRINGE IM ONE (15:45)
== END 2020-02-25 17:26 | disposition home health service (06) | DRG 463 ==
LOC: 3BNU 19:36 → EMEROOARM 19:36 → 3BNU 02-20 03:56 → SUATTDRO 02-20 12:39 → 3ANU 02-21 15:39
PROVIDERS: ADMIT Internal Medicine; ATTEND Family Medicine

== ENCOUNTER 2020-03-20 22:07 | Inpatient (IN) ==
[2020-03-20] MEDS ORDERED: 0.9 % Sodium Chloride 1,000 ML IVC ONE (22:49)
[2020-03-20 23:07] LABS: Basophils % 0.1 %; Eosinophils % 0.1 %; Hematocrit 44.2 % (35.3-44.9); Hemoglobin 14.3 g/dL (11.5-15.4); Immature Granulocytes % 0.4 % (0-4); Lymphocytes # 1.2 K/mcL (0.6-4.6); Lymphocytes % 8.7 %; Mean Corpuscular HGB Conc 32.4 g/dL (31.6-35.5); Mean Corpuscular Hemoglobin 31.9 pg (28.0-33.3); Mean Corpuscular Volume 98.7 fL (83.0-100.0); Mean Platelet Volume 10.2 fL (9.4-12.4); Monocytes # 0.5 K/mcL (0.0-1.3); Monocytes % 3.3 %; Neutrophils # 12.3 K/mcL (1.6-8.9); Platelet Count 325 K/mcL (140-400); Red Blood Count 4.48 M/mcL (3.82-4.97); Red Cell Distribution Width 15.6 % (11.5-14.5); Segmented Neutrophils % 87.4 %; White Blood Count 14.1 K/mcL (4.3-11.1)
[2020-03-20 23:32] LABS: Alanine Aminotransferase 14 Units/L (7-52); Alkaline Phosphatase 65 Units/L (34-104); Aspartate Amino Transferase 24 Units/L (13-39); BUN/Creatinine Ratio 19 (6-26); Bilirubin,Direct 0.3 mg/dL (0.0-0.2); Bilirubin,Indirect 0.5 mg/dL (0.0-1.0); Bilirubin,Total 0.8 mg/dL (0.3-1.0); Blood Urea Nitrogen 18 mg/dL (8-23); Calcium 8.4 mg/dL (8.6-10.3); Carbon Dioxide 31 mEq/L (23-29); Chloride 89 mEq/L (98-107); Globulin 3.1 g/dL (2.4-3.5); Glucose 83 mg/dL (70-105); Lipase 12 Units/L (11-82); Magnesium 1.5 mg/dL (1.6-2.6); Osmolality,Calculated 283 (280-300); Potassium 2.3 mEq/L (3.5-5.1); Sodium 136 mEq/L (136-145); Total Protein 6.1 g/dL (6.4-8.9); Troponin I 0.03 ng/mL (< 0.04); eGFR For African Americans > 60 (> 60); eGFR For Non-African Americans > 60 (> 60)
[2020-03-20] MEDS ORDERED: Potassium Chloride 40 MEQ, Lidocaine 1% 2 ML in 0.9 % Sodium Chloride 500 ML IVPB ONE (23:44)
[2020-03-20] MEDS ORDERED: Ondansetron 4 MG/2 ML VIAL IVP ONE (23:45)
[2020-03-21] MEDS ORDERED: LACTATED IV ONE (01:15)
[2020-03-21] MEDS ORDERED: POTASSIUM ACETATE IV ONE (01:15)
[2020-03-21] MEDS ORDERED: Magnesium Sulfate 1 GM/102 ML PIGGYBACK IVPB ONE (01:15)
[2020-03-21] MEDS ORDERED: RINGERS IV ONE (01:15)
[2020-03-21 01:22] LABS: Influenza A PCR Negative (Negative); Influenza B PCR Negative (Negative); Resp. Syncytial Virus PCR Negative (Negative)
[2020-03-21 01:23] LABS: SARS-CoV-2 by PCR (In House) Negative (Negative)
[2020-03-21] MEDS ORDERED: LACTATED IVPB ONE (01:45)
[2020-03-21] MEDS ORDERED: RINGERS IVPB ONE (01:45)
[2020-03-21] MEDS ORDERED: POTASSIUM CHLORIDE IVPB ONE (01:45)
[2020-03-21] MEDS ORDERED: Naloxone 0.4 MG/ML INJ IVP PRN (03:54)
[2020-03-21] MEDS ORDERED: Acetaminophen 325 MG TABLET PO PRN (03:54)
[2020-03-21] MEDS ORDERED: Nystatin POWDER 30 GM BOTTLE TP PRN (04:28)
[2020-03-21] MEDS ORDERED: Nystatin Cream 15 GM TUBE TP PRN (04:28)
[2020-03-21] MEDS ORDERED: Potassium Chloride 40 MEQ, Lidocaine 1% 2 ML in 0.9 % Sodium Chloride 500 ML IVPB ONE (04:28)
[2020-03-21 04:55] LABS: Hematocrit 41.1 % (35.3-44.9); Hemoglobin 13.4 g/dL (11.5-15.4); Mean Corpuscular HGB Conc 32.6 g/dL (31.6-35.5); Mean Corpuscular Hemoglobin 33.2 pg (28.0-33.3); Mean Corpuscular Volume 101.7 fL (83.0-100.0); Mean Platelet Volume 10.1 fL (9.4-12.4); Platelet Count 268 K/mcL (140-400); Red Blood Count 4.04 M/mcL (3.82-4.97); Red Cell Distribution Width 15.7 % (11.5-14.5); White Blood Count 14.6 K/mcL (4.3-11.1)
[2020-03-21 04:57] LABS: Bacteria,Urine Moderate per hpf (None-Few); Bilirubin,Urine Negative (Negative); Blood,Urine Negative (Negative); Clarity,Urine Clear (Clear); Color,Urine Yellow (Yellow); Glucose,Urine (UA) Normal (Normal); Hyaline Casts,Urine Few per lpf (None Seen); Ketones,Urine Trace mg/dL (Negative); Leukocyte Esterase,Urine Large (Negative); Mucus,Urine Few per lpf (None-Few); Nitrite,Urine Negative (Negative); Protein,Urine Trace mg/dL (Neg-Trace); RBC,Urine 0-3 per hpf (0-3); Specific Gravity,Urine 1.013 (1.010-1.025); Squamous Epithelial Cell,Urine Few per hpf (None-Few); Urobilinogen,Urine Normal (Normal); WBC,Urine 30-50 per hpf (0-3)
[2020-03-21] MEDS ORDERED: 0.9 % Sodium Chloride 1,000 ML IVC SCH (05:00)
[2020-03-21 05:14] LABS: BUN/Creatinine Ratio 23 (6-26); Blood Urea Nitrogen 16 mg/dL (8-23); Carbon Dioxide 29 mEq/L (23-29); Chloride 97 mEq/L (98-107); Glucose 75 mg/dL (70-105); Magnesium 1.8 mg/dL (1.6-2.6); Osmolality,Calculated 286 (280-300); Phosphorous 2.6 mg/dL (2.7-4.5); Potassium 2.7 mEq/L (3.5-5.1); Sodium 138 mEq/L (136-145); eGFR For African Americans > 60 (> 60); eGFR For Non-African Americans > 60 (> 60)
[2020-03-21] MEDS: Ondansetron ODT 4 MG TAB.RAPDIS SL PRN ×2 (09:00→17:42)
[2020-03-21] MEDS: Gabapentin 300 MG CAPSULE PO SCH ×3 (09:00→20:25)
[2020-03-21] MEDS: ALPRAZolam 1 MG TABLET PO SCH ×2 (09:00→20:25)
[2020-03-21] MEDS: (Roflumilast [Daliresp] 500 MCG) PO SCH (09:01)
[2020-03-21] MEDS: Nystatin SUSP 5 ML UD.LIQ PO SCH ×4 (09:02→20:25)
[2020-03-21] MEDS: Budesonide/Formoterol 80/4.5 1 PUFF INH IH SCH ×2 (10:14→19:35)
[2020-03-21] MEDS: *HR* OxyCODONE/APAP 5/325 TABLET PO PRN (20:25)
[2020-03-22 01:37] LABS: Hemoglobin 12.5 g/dL (11.5-15.4); Mean Corpuscular HGB Conc 32.1 g/dL (31.6-35.5); Mean Corpuscular Volume 102.9 fL (83.0-100.0); Mean Platelet Volume 9.7 fL (9.4-12.4); Platelet Count 233 K/mcL (140-400); Red Blood Count 3.79 M/mcL (3.82-4.97); Red Cell Distribution Width 15.6 % (11.5-14.5); White Blood Count 10.9 K/mcL (4.3-11.1)
[2020-03-22 01:57] LABS: BUN/Creatinine Ratio 25 (6-26); Blood Urea Nitrogen 15 mg/dL (8-23); Calcium 7.5 mg/dL (8.6-10.3); Carbon Dioxide 31 mEq/L (23-29); Chloride 102 mEq/L (98-107); Glucose 107 mg/dL (70-105); Osmolality,Calculated 293 (280-300); Potassium 2.9 mEq/L (3.5-5.1); Sodium 141 mEq/L (136-145); eGFR For African Americans > 60 (> 60); eGFR For Non-African Americans > 60 (> 60)
[2020-03-22] MEDS ORDERED: Potassium Chloride 40 MEQ, Lidocaine 1% 2 ML in 0.9 % Sodium Chloride 500 ML IVPB ONE (07:38)
[2020-03-22] MEDS: Budesonide/Formoterol 80/4.5 1 PUFF INH IH SCH ×2 (07:42→20:34)
[2020-03-22] MEDS: Nystatin SUSP 5 ML UD.LIQ PO SCH ×4 (10:04→21:13)
[2020-03-22] MEDS: (Roflumilast [Daliresp] 500 MCG) PO SCH (10:06)
[2020-03-22] MEDS: Gabapentin 300 MG CAPSULE PO SCH ×3 (10:06→21:12)
[2020-03-22] MEDS: ALPRAZolam 1 MG TABLET PO SCH ×2 (10:07→21:12)
[2020-03-22 12:09] LABS: Magnesium 1.7 mg/dL (1.6-2.6)
[2020-03-22] MEDS ORDERED: 0.9 % Sodium Chloride 500 ML IVC ONE (16:39)
[2020-03-22] MEDS ORDERED: 0.9 % Sodium Chloride 500 ML ONE (17:41)
[2020-03-22] MEDS: propylthiouraciL 50 MG TABLET PO SCH ×2 (17:42→21:12)
[2020-03-22 20:36] LABS: ABG Base Excess 5 mEq/L (-2 to 3); ABG HCO3 33 mEq/L (21-27); ABG Oxygen Saturation 91 % (95-98); ABG PCO2 61 mmHg (35-45); ABG PH 7.34 pH Units (7.32-7.45); ABG PO2 67 mmHg (85-104); ABG TCO2 35 mEq/L (20-26)
[2020-03-22] MEDS: *HR* OxyCODONE/APAP 5/325 TABLET PO PRN (21:13)
[2020-03-23] MEDS: *HR* OxyCODONE/APAP 5/325 TABLET PO PRN (05:22)
[2020-03-23] MEDS ORDERED: 0.9 % Sodium Chloride 500 ML ONE (07:48)
[2020-03-23] MEDS ORDERED: 0.9 % Sodium Chloride 1,000 ML ONE ×2 (07:50→10:39)
[2020-03-23 08:05] LABS: ABG Base Excess 7 mEq/L (-2 to 3); ABG HCO3 35 mEq/L (21-27); ABG Oxygen Saturation 92 % (95-98); ABG PCO2 67 mmHg (35-45); ABG PH 7.33 pH Units (7.32-7.45); ABG PO2 72 mmHg (85-104); ABG TCO2 37 mEq/L (20-26)
[2020-03-23 08:09] LABS: Red Cell Distribution Width 15.9 % (11.5-14.5)
[2020-03-23 08:10] LABS: Hematocrit 36.7 % (35.3-44.9); Hemoglobin 11.5 g/dL (11.5-15.4); Mean Corpuscular HGB Conc 31.3 g/dL (31.6-35.5); Mean Corpuscular Hemoglobin 32.3 pg (28.0-33.3); Mean Corpuscular Volume 103.1 fL (83.0-100.0); Mean Platelet Volume 9.6 fL (9.4-12.4); Platelet Count 195 K/mcL (140-400); Red Blood Count 3.56 M/mcL (3.82-4.97); White Blood Count 10.9 K/mcL (4.3-11.1)
[2020-03-23 08:22] LABS: Alanine Aminotransferase 12 Units/L (7-52); Albumin 2.3 g/dL (3.5-5.7); Alkaline Phosphatase 54 Units/L (34-104); Aspartate Amino Transferase 20 Units/L (13-39); BUN/Creatinine Ratio 30 (6-26); Bilirubin,Total 0.4 mg/dL (0.3-1.0); Blood Urea Nitrogen 13 mg/dL (8-23); Calcium 7.6 mg/dL (8.6-10.3); Carbon Dioxide 31 mEq/L (23-29); Chloride 109 mEq/L (98-107); Globulin 2.4 g/dL (2.4-3.5); Glucose 125 mg/dL (70-105); Osmolality,Calculated 302 (280-300); Potassium 3.4 mEq/L (3.5-5.1); Sodium 145 mEq/L (136-145); Total Protein 4.7 g/dL (6.4-8.9); eGFR For African Americans > 60 (> 60); eGFR For Non-African Americans > 60 (> 60)
[2020-03-23] MEDS ORDERED: Potassium Chloride 40 MEQ, Lidocaine 1% 2 ML in 0.9 % Sodium Chloride 500 ML IVPB ONE (08:57)
[2020-03-23 09:51] LABS: Troponin I < 0.03 ng/mL (< 0.04)
[2020-03-23] MEDS ORDERED: 0.9 % Sodium Chloride 1,000 ML IVC ONE (10:41)
[2020-03-23] MEDS: Budesonide/Formoterol 80/4.5 1 PUFF INH IH SCH ×2 (11:08→20:09)
[2020-03-23] MEDS: Gabapentin 300 MG CAPSULE PO SCH ×3 (11:11→19:56)
[2020-03-23] MEDS: Nystatin SUSP 5 ML UD.LIQ PO SCH ×4 (11:11→20:04)
[2020-03-23] MEDS: (Roflumilast [Daliresp] 500 MCG) PO SCH (11:11)
[2020-03-23] MEDS: Magnesium Oxide 400 MG TABLET PO SCH (11:11)
[2020-03-23] MEDS: polyethylene glycoL 3350 17 GM POWD.PACK PO SCH (11:11)
[2020-03-23] MEDS: ALPRAZolam 1 MG TABLET PO SCH ×2 (11:12→19:56)
[2020-03-23] MEDS: propylthiouraciL 50 MG TABLET PO SCH ×3 (11:12→19:56)
[2020-03-23 12:42] LABS: ABG Base Excess 3 mEq/L (-2 to 3); ABG HCO3 32 mEq/L (21-27); ABG Oxygen Saturation 89 % (95-98); ABG PCO2 66 mmHg (35-45); ABG PH 7.29 pH Units (7.32-7.45); ABG PO2 64 mmHg (85-104); ABG TCO2 34 mEq/L (20-26)
[2020-03-23 13:55] LABS: Adenovirus Not Detected (Not Detect); Bordetella Pertussis Not Detected (Not Detect); Chlamydophila pneumoniae Not Detected (Not Detect); Coronavirus 229E Not Detected (Not Detect); Coronavirus HKU1 Not Detected (Not Detect); Coronavirus NL63 Not Detected (Not Detect); Coronavirus OC43 Not Detected (Not Detect); Human Metapneumovirus Not Detected (Not Detect); Human Rhinovirus/Enterovirus Not Detected (Not Detect); Influenza A Subtype 2009 H1 Not Detected (Not Detect); Influenza B Not Detected (Not Detect); Mycoplasma pneumoniae Not Detected (Not Detect); Parainfluenza Virus 1 Not Detected (Not Detect); Parainfluenza Virus 2 Not Detected (Not Detect); Parainfluenza Virus 3 Not Detected (Not Detect); Parainfluenza Virus 4 Not Detected (Not Detect); Respiratory Syncytial Virus Not Detected (Not Detect); SARS-CoV-2 Not Detected (Not Detect)
[2020-03-23] MEDS ORDERED: Vancomycin 1,250 MG/262.5 ML IV.SOLN IVPB ONE (14:00)
[2020-03-23] MEDS: *HR* Heparin 5,000 UNIT/ML VIAL SQ SCH ×2 (15:29→20:04)
[2020-03-23] MEDS: Piperacillin/Tazobactam 3.375 GM in 0.9 % Sodium Chloride Mini Bag 100 ML IVPB SCH ×2 (15:29→23:24)
[2020-03-23] MEDS ORDERED: Potassium Chloride 40 MEQ/200 ML BAG IVPB PRN (16:18)
[2020-03-23] MEDS ORDERED: Potassium Phosphate 44 MEQ in 0.9 % Sodium Chloride 250 ML IVPB PRN (16:18)
[2020-03-23] MEDS ORDERED: *HR* Etomidate 40 MG/20 ML VIAL IVP ONE (17:14)
[2020-03-23] MEDS ORDERED: *HR* Propofol 200 MG/20 ML VIAL IVP ONE (17:14)
[2020-03-23 17:22] LABS: Magnesium 1.3 mg/dL (1.6-2.6); Phosphorous 2.3 mg/dL (2.7-4.5)
[2020-03-23] MEDS: Norepinephrine 4 MG/254 ML IV.SOLN IVC SCH (17:43)
[2020-03-23] MEDS: MethylPREDNISolone 40 MG/ML VIAL IVP SCH (17:46)
[2020-03-23] MEDS ORDERED: MethylPREDNISolone 40 MG/ML VIAL IVP SCH (18:00)
[2020-03-23] MEDS: FentaNYL (PF) 1,000 MCG/100 ML IV.SOLN IVC SCH (18:07)
[2020-03-23] MEDS: Midazolam HCl 50 MG/100 ML IV.SOLN IVC SCH (18:08)
[2020-03-23] MEDS ORDERED: Artificial Tears SOLN 15 ML BOTTLE BOTH EYES PRN (18:15)
[2020-03-23 18:20] LABS: Basophils % 0.1 %; Eosinophils # 0.1 K/mcL (0.0-0.6); Eosinophils % 0.5 %; Hematocrit 38.8 % (35.3-44.9); Immature Granulocytes % 0.6 % (0-4); Lymphocytes # 2.2 K/mcL (0.6-4.6); Mean Corpuscular HGB Conc 30.9 g/dL (31.6-35.5); Mean Corpuscular Hemoglobin 32.2 pg (28.0-33.3); Mean Platelet Volume 9.5 fL (9.4-12.4); Monocytes # 0.2 K/mcL (0.0-1.3); Neutrophils # 7.9 K/mcL (1.6-8.9); Nucleated Red Blood Cells 0.2 /100 WBC (0); Platelet Count 187 K/mcL (140-400); Red Blood Count 3.73 M/mcL (3.82-4.97); Red Cell Distribution Width 15.9 % (11.5-14.5); Segmented Neutrophils % 75.8 %; White Blood Count 10.5 K/mcL (4.3-11.1)
[2020-03-23 18:23] LABS: ABG Base Excess 2 mEq/L (-2 to 3); ABG HCO3 29 mEq/L (21-27); ABG Oxygen Saturation 96 % (95-98); ABG PCO2 54 mmHg (35-45); ABG PH 7.34 pH Units (7.32-7.45); ABG PO2 88 mmHg (85-104); ABG TCO2 31 mEq/L (20-26); Blood Gas Modality ASSIST CONTROL; Blood Gas VT 480 cc
[2020-03-23 18:38] LABS: BUN/Creatinine Ratio 34 (6-26); Blood Urea Nitrogen 13 mg/dL (8-23); Calcium 7.5 mg/dL (8.6-10.3); Carbon Dioxide 29 mEq/L (23-29); Chloride 110 mEq/L (98-107); Glucose 93 mg/dL (70-105); Osmolality,Calculated 300 (280-300); Potassium 3.8 mEq/L (3.5-5.1); Sodium 145 mEq/L (136-145); eGFR For African Americans > 60 (> 60); eGFR For Non-African Americans > 60 (> 60)
[2020-03-23] MEDS: Chlorhexidine Rinse 15 ML MOUTHWASH MM SCH (19:57)
[2020-03-23] MEDS: Artificial Tears SOLN 15 ML BOTTLE BOTH EYES SCH ×2 (20:04→23:25)
[2020-03-23] MEDS: Potassium Chloride Elixir 20 MEQ/15 ML UDC GTUBE SCH (20:05)
[2020-03-24] MEDS: FentaNYL (PF) 1,000 MCG/100 ML IV.SOLN IVC SCH ×3 (01:12→17:17)
[2020-03-24] MEDS ORDERED: Vancomycin 1,250 MG/262.5 ML IV.SOLN IVPB SCH (02:00)
[2020-03-24] MEDS: Artificial Tears SOLN 15 ML BOTTLE BOTH EYES SCH ×6 (03:08→23:23)
[2020-03-24 03:55] LABS: Basophils % 0.1 %; Hematocrit 39.1 % (35.3-44.9); Hemoglobin 12.3 g/dL (11.5-15.4); Immature Granulocytes % 0.6 % (0-4); Lymphocytes # 0.8 K/mcL (0.6-4.6); Lymphocytes % 7.2 %; Mean Corpuscular HGB Conc 31.5 g/dL (31.6-35.5); Mean Corpuscular Hemoglobin 32.2 pg (28.0-33.3); Mean Corpuscular Volume 102.4 fL (83.0-100.0); Mean Platelet Volume 9.4 fL (9.4-12.4); Monocytes # 0.1 K/mcL (0.0-1.3); Monocytes % 0.8 %; Neutrophils # 10.3 K/mcL (1.6-8.9); Platelet Count 225 K/mcL (140-400); Red Blood Count 3.82 M/mcL (3.82-4.97); Red Cell Distribution Width 15.9 % (11.5-14.5); Segmented Neutrophils % 91.3 %; White Blood Count 11.3 K/mcL (4.3-11.1)
[2020-03-24 04:05] LABS: ABG Base Excess 2 mEq/L (-2 to 3); ABG HCO3 29 mEq/L (21-27); ABG Oxygen Saturation 99 % (95-98); ABG PCO2 53 mmHg (35-45); ABG PH 7.35 pH Units (7.32-7.45); ABG PO2 156 mmHg (85-104); ABG TCO2 31 mEq/L (20-26); Blood Gas VT 480 cc
[2020-03-24 04:14] LABS: BUN/Creatinine Ratio 32 (6-26); Blood Urea Nitrogen 15 mg/dL (8-23); Calcium 7.6 mg/dL (8.6-10.3); Carbon Dioxide 26 mEq/L (23-29); Chloride 111 mEq/L (98-107); Glucose 143 mg/dL (70-105); Osmolality,Calculated 303 (280-300); Sodium 145 mEq/L (136-145); eGFR For African Americans > 60 (> 60); eGFR For Non-African Americans > 60 (> 60)
[2020-03-24] MEDS: Norepinephrine 4 MG/254 ML IV.SOLN IVC SCH (05:54)
[2020-03-24] MEDS: MethylPREDNISolone 40 MG/ML VIAL IVP SCH ×2 (05:56→17:54)
[2020-03-24] MEDS: *HR* Heparin 5,000 UNIT/ML VIAL SQ SCH ×3 (05:56→21:09)
[2020-03-24] MEDS: Piperacillin/Tazobactam 3.375 GM in 0.9 % Sodium Chloride Mini Bag 100 ML IVPB SCH (07:36)
[2020-03-24] MEDS: Pantoprazole 40 MG VIAL IVP SCH (07:44)
[2020-03-24] MEDS: Chlorhexidine Rinse 15 ML MOUTHWASH MM SCH ×2 (07:44→19:32)
[2020-03-24] MEDS: Nystatin SUSP 5 ML UD.LIQ PO SCH ×4 (07:44→19:33)
[2020-03-24] MEDS: Magnesium Oxide 400 MG TABLET PO SCH (08:11)
[2020-03-24] MEDS: Gabapentin 300 MG CAPSULE PO SCH ×3 (08:11→19:33)
[2020-03-24] MEDS: polyethylene glycoL 3350 17 GM POWD.PACK PO SCH (08:11)
[2020-03-24] MEDS: (Roflumilast [Daliresp] 500 MCG) PO SCH (08:11)
[2020-03-24] MEDS: ALPRAZolam 1 MG TABLET PO SCH ×2 (08:12→19:26)
[2020-03-24] MEDS: Potassium Chloride Elixir 20 MEQ/15 ML UDC GTUBE SCH ×2 (08:12→19:29)
[2020-03-24] MEDS: propylthiouraciL 50 MG TABLET PO SCH ×3 (08:12→19:32)
[2020-03-24] MEDS: Midazolam HCl 50 MG/100 ML IV.SOLN IVC SCH (08:34)
[2020-03-24] MEDS: Dexmedetomidine HCl 400 MCG/100 ML MLS IVC SCH ×2 (09:01→23:23)
[2020-03-24] MEDS: Ertapenem 1,000 MG in 0.9 % Sodium Chloride Mini Bag 100 ML IVPB SCH (09:19)
[2020-03-24] MEDS ORDERED: Vancomycin 1,250 MG/262.5 ML IV.SOLN IVPB ONE (09:34)
[2020-03-24] MEDS: Budesonide/Formoterol 80/4.5 1 PUFF INH IH SCH ×2 (10:03→19:42)
[2020-03-24] MEDS: Vancomycin 1,250 MG/262.5 ML IV.SOLN IVPB SCH ×2 (10:32→21:12)
[2020-03-24 14:42] LABS: VBG Ionized Calcium 1.07 mmol/L (1.15-1.35)
[2020-03-24] MEDS: Calcium Gluconate 1gm/50mL 1 GM/50 ML BAG IVPB PRN (14:46)
[2020-03-24 14:59] LABS: BUN/Creatinine Ratio 31 (6-26); Blood Urea Nitrogen 16 mg/dL (8-23); Calcium 7.7 mg/dL (8.6-10.3); Carbon Dioxide 26 mEq/L (23-29); Chloride 112 mEq/L (98-107); Glucose 145 mg/dL (70-105); Magnesium 1.7 mg/dL (1.6-2.6); Osmolality,Calculated 306 (280-300); Phosphorous 2.9 mg/dL (2.7-4.5); Potassium 4.5 mEq/L (3.5-5.1); Sodium 146 mEq/L (136-145); eGFR For African Americans > 60 (> 60); eGFR For Non-African Americans > 60 (> 60)
[2020-03-25] MEDS: Artificial Tears SOLN 15 ML BOTTLE BOTH EYES SCH ×6 (03:28→23:25)
[2020-03-25 03:35] LABS: Hematocrit 37.2 % (35.3-44.9); Hemoglobin 11.7 g/dL (11.5-15.4); Immature Granulocytes % 0.5 % (0-4); Lymphocytes % 16.9 %; Mean Corpuscular HGB Conc 31.5 g/dL (31.6-35.5); Mean Corpuscular Hemoglobin 32.6 pg (28.0-33.3); Mean Corpuscular Volume 103.6 fL (83.0-100.0); Mean Platelet Volume 9.5 fL (9.4-12.4); Monocytes # 0.1 K/mcL (0.0-1.3); Monocytes % 1.5 %; Platelet Count 161 K/mcL (140-400); Red Blood Count 3.59 M/mcL (3.82-4.97); Red Cell Distribution Width 15.9 % (11.5-14.5); Segmented Neutrophils % 81.1 %; White Blood Count 6.2 K/mcL (4.3-11.1)
[2020-03-25 03:43] LABS: VBG Ionized Calcium 1.13 mmol/L (1.15-1.35)
[2020-03-25 03:55] LABS: BUN/Creatinine Ratio 38 (6-26); Blood Urea Nitrogen 17 mg/dL (8-23); Calcium 8.2 mg/dL (8.6-10.3); Carbon Dioxide 27 mEq/L (23-29); Chloride 113 mEq/L (98-107); Glucose 129 mg/dL (70-105); Magnesium 2.1 mg/dL (1.6-2.6); Osmolality,Calculated 305 (280-300); Phosphorous 2.1 mg/dL (2.7-4.5); Potassium 4.7 mEq/L (3.5-5.1); Sodium 146 mEq/L (136-145); eGFR For African Americans > 60 (> 60); eGFR For Non-African Americans > 60 (> 60)
[2020-03-25 04:11] LABS: ABG Base Excess 3 mEq/L (-2 to 3); ABG HCO3 29 mEq/L (21-27); ABG Oxygen Saturation 96 % (95-98); ABG PCO2 50 mmHg (35-45); ABG PH 7.38 pH Units (7.32-7.45); ABG PO2 88 mmHg (85-104); ABG TCO2 31 mEq/L (20-26); Blood Gas VT 480 cc
[2020-03-25] MEDS: MethylPREDNISolone 40 MG/ML VIAL IVP SCH ×2 (04:57→17:08)
[2020-03-25] MEDS: *HR* Heparin 5,000 UNIT/ML VIAL SQ SCH ×3 (04:59→20:23)
[2020-03-25] MEDS: FentaNYL (PF) 1,000 MCG/100 ML IV.SOLN IVC SCH ×2 (05:05→15:21)
[2020-03-25] MEDS: Pantoprazole 40 MG VIAL IVP SCH (07:31)
[2020-03-25] MEDS: Nystatin SUSP 5 ML UD.LIQ PO SCH ×4 (07:31→20:19)
[2020-03-25] MEDS: Chlorhexidine Rinse 15 ML MOUTHWASH MM SCH ×2 (07:31→20:19)
[2020-03-25] MEDS: propylthiouraciL 50 MG TABLET PO SCH ×3 (08:24→20:23)
[2020-03-25] MEDS: Potassium Chloride Elixir 20 MEQ/15 ML UDC GTUBE SCH ×2 (08:24→20:22)
[2020-03-25] MEDS: polyethylene glycoL 3350 17 GM POWD.PACK PO SCH (08:25)
[2020-03-25] MEDS: Magnesium Oxide 400 MG TABLET PO SCH (08:25)
[2020-03-25] MEDS: Gabapentin 300 MG CAPSULE PO SCH ×3 (08:25→20:19)
[2020-03-25] MEDS: Ertapenem 1,000 MG in 0.9 % Sodium Chloride Mini Bag 100 ML IVPB SCH (08:26)
[2020-03-25] MEDS: ALPRAZolam 1 MG TABLET PO SCH ×2 (08:26→20:23)
[2020-03-25] MEDS: Budesonide/Formoterol 80/4.5 1 PUFF INH IH SCH ×2 (09:33→20:16)
[2020-03-25] MEDS ORDERED: Furosemide 40 MG/4 ML VIAL IVP SCH (09:45)
[2020-03-25] MEDS: Furosemide 40 MG/4 ML VIAL IVP SCH ×2 (09:47→17:08)
[2020-03-25] MEDS: Vancomycin 1,250 MG/262.5 ML IV.SOLN IVPB SCH (14:25)
[2020-03-25 17:30] LABS: BUN/Creatinine Ratio 45 (6-26); Blood Urea Nitrogen 18 mg/dL (8-23); Calcium 8.1 mg/dL (8.6-10.3); Carbon Dioxide 29 mEq/L (23-29); Chloride 110 mEq/L (98-107); Glucose 104 mg/dL (70-105); Osmolality,Calculated 302 (280-300); Sodium 145 mEq/L (136-145); eGFR For African Americans > 60 (> 60); eGFR For Non-African Americans > 60 (> 60)
[2020-03-25] MEDS: Norepinephrine 4 MG/254 ML IV.SOLN IVC SCH (19:41)
[2020-03-26] MEDS: Vancomycin 1,250 MG/262.5 ML IV.SOLN IVPB SCH (01:00)
[2020-03-26] MEDS: Dexmedetomidine HCl 400 MCG/100 ML MLS IVC SCH (02:46)
[2020-03-26] MEDS: Artificial Tears SOLN 15 ML BOTTLE BOTH EYES SCH ×6 (02:46→23:28)
[2020-03-26] MEDS: FentaNYL (PF) 1,000 MCG/100 ML IV.SOLN IVC SCH ×2 (03:06→15:34)
[2020-03-26] MEDS: Meropenem 1,000 MG in Water for inj. (sterile) 20 ML IVP SCH ×3 (03:06→19:47)
[2020-03-26 03:35] LABS: Basophils % 0.1 %; Hematocrit 36.4 % (35.3-44.9); Hemoglobin 11.5 g/dL (11.5-15.4); Immature Granulocytes % 0.6 % (0-4); Lymphocytes # 1.1 K/mcL (0.6-4.6); Lymphocytes % 15.9 %; Mean Corpuscular HGB Conc 31.6 g/dL (31.6-35.5); Mean Corpuscular Hemoglobin 32.4 pg (28.0-33.3); Mean Corpuscular Volume 102.5 fL (83.0-100.0); Mean Platelet Volume 9.6 fL (9.4-12.4); Monocytes # 0.2 K/mcL (0.0-1.3); Neutrophils # 5.4 K/mcL (1.6-8.9); Platelet Count 161 K/mcL (140-400); Red Blood Count 3.55 M/mcL (3.82-4.97); Red Cell Distribution Width 15.7 % (11.5-14.5); Segmented Neutrophils % 80.4 %; White Blood Count 6.7 K/mcL (4.3-11.1)
[2020-03-26 03:38] LABS: VBG Ionized Calcium 1.04 mmol/L (1.15-1.35)
[2020-03-26 03:53] LABS: BUN/Creatinine Ratio 53 (6-26); Blood Urea Nitrogen 21 mg/dL (8-23); Carbon Dioxide 29 mEq/L (23-29); Chloride 107 mEq/L (98-107); Glucose 105 mg/dL (70-105); Magnesium 1.9 mg/dL (1.6-2.6); Osmolality,Calculated 297 (280-300); Potassium 4.7 mEq/L (3.5-5.1); Sodium 142 mEq/L (136-145); eGFR For African Americans > 60 (> 60); eGFR For Non-African Americans > 60 (> 60)
[2020-03-26] MEDS: Calcium Gluconate 1gm/50mL 1 GM/50 ML BAG IVPB PRN (04:02)
[2020-03-26 04:35] LABS: ABG Base Excess 6 mEq/L (-2 to 3); ABG HCO3 32 mEq/L (21-27); ABG Oxygen Saturation 97 % (95-98); ABG PCO2 50 mmHg (35-45); ABG PH 7.41 pH Units (7.32-7.45); ABG PO2 87 mmHg (85-104); ABG TCO2 33 mEq/L (20-26); Blood Gas Modality ASSIST CONTROL; Blood Gas VT 400 cc
[2020-03-26] MEDS: *HR* Heparin 5,000 UNIT/ML VIAL SQ SCH ×3 (05:18→21:54)
[2020-03-26] MEDS: MethylPREDNISolone 40 MG/ML VIAL IVP SCH ×2 (05:21→16:53)
[2020-03-26] MEDS: Budesonide/Formoterol 80/4.5 1 PUFF INH IH SCH ×2 (07:04→19:26)
[2020-03-26] MEDS: Nystatin SUSP 5 ML UD.LIQ PO SCH ×4 (08:04→19:49)
[2020-03-26] MEDS: propylthiouraciL 50 MG TABLET PO SCH ×3 (08:04→19:49)
[2020-03-26] MEDS: Chlorhexidine Rinse 15 ML MOUTHWASH MM SCH ×2 (08:04→19:48)
[2020-03-26] MEDS: Gabapentin 300 MG CAPSULE PO SCH ×3 (08:05→19:49)
[2020-03-26] MEDS: Furosemide 40 MG/4 ML VIAL IVP SCH ×2 (08:05→16:52)
[2020-03-26] MEDS: Pantoprazole 40 MG VIAL IVP SCH (08:05)
[2020-03-26] MEDS: Potassium Chloride Elixir 20 MEQ/15 ML UDC GTUBE SCH ×2 (08:05→19:49)
[2020-03-26] MEDS: ALPRAZolam 1 MG TABLET PO SCH ×2 (08:05→19:49)
[2020-03-26 10:41] LABS: Thyroid Stimulating Hormone 0.158 mcIU/mL (0.340-5.600)
[2020-03-26 10:43] LABS: Triiodothyronine (T3) Free 2.54 pg/mL (2.50-3.90)
[2020-03-26 10:48] LABS: Triiodothyronine (T3) Total 0.62 ng/mL (0.87-1.78)
[2020-03-26] MEDS: Norepinephrine 4 MG/254 ML IV.SOLN IVC SCH (11:12)
[2020-03-26] MEDS: ALPRAZolam 1 MG TABLET GTUBE SCH (20:09)
[2020-03-26] MEDS: Gabapentin 300 MG CAPSULE GTUBE SCH (20:09)
[2020-03-26] MEDS: Nystatin SUSP 5 ML UD.LIQ GTUBE SCH (20:09)
[2020-03-26] MEDS: propylthiouraciL 50 MG TABLET GTUBE SCH (20:09)
[2020-03-27] MEDS: Dexmedetomidine HCl 400 MCG/100 ML MLS IVC SCH ×2 (03:40→20:35)
[2020-03-27] MEDS: Artificial Tears SOLN 15 ML BOTTLE BOTH EYES SCH ×6 (03:42→23:56)
[2020-03-27] MEDS: Meropenem 1,000 MG in Water for inj. (sterile) 20 ML IVP SCH ×3 (03:42→20:16)
[2020-03-27 03:49] LABS: Hematocrit 34.5 % (35.3-44.9); Hemoglobin 11.4 g/dL (11.5-15.4); Mean Corpuscular Hemoglobin 32.6 pg (28.0-33.3); Mean Corpuscular Volume 98.6 fL (83.0-100.0); Mean Platelet Volume 9.5 fL (9.4-12.4); Platelet Count 145 K/mcL (140-400); Red Cell Distribution Width 15.3 % (11.5-14.5); White Blood Count 4.7 K/mcL (4.3-11.1)
[2020-03-27 03:55] LABS: VBG Ionized Calcium 1.09 mmol/L (1.15-1.35)
[2020-03-27 04:13] LABS: BUN/Creatinine Ratio 70 (6-26); Blood Urea Nitrogen 26 mg/dL (8-23); Carbon Dioxide 31 mEq/L (23-29); Chloride 104 mEq/L (98-107); Glucose 115 mg/dL (70-105); Magnesium 1.9 mg/dL (1.6-2.6); Osmolality,Calculated 298 (280-300); Phosphorous 3.5 mg/dL (2.7-4.5); Potassium 4.1 mEq/L (3.5-5.1); Sodium 141 mEq/L (136-145); eGFR For African Americans > 60 (> 60); eGFR For Non-African Americans > 60 (> 60)
[2020-03-27 04:34] LABS: ABG Base Excess 6 mEq/L (-2 to 3); ABG HCO3 31 mEq/L (21-27); ABG Oxygen Saturation 96 % (95-98); ABG PCO2 45 mmHg (35-45); ABG PH 7.45 pH Units (7.32-7.45); ABG PO2 81 mmHg (85-104); ABG TCO2 33 mEq/L (20-26); Blood Gas Modality ASSIST CONTROL; Blood Gas VT 400 cc
[2020-03-27] MEDS: MethylPREDNISolone 40 MG/ML VIAL IVP SCH (05:16)
[2020-03-27] MEDS: *HR* Heparin 5,000 UNIT/ML VIAL SQ SCH ×3 (05:16→20:16)
[2020-03-27] MEDS: FentaNYL (PF) 1,000 MCG/100 ML IV.SOLN IVC SCH (05:17)
[2020-03-27] MEDS: Pantoprazole 40 MG VIAL IVP SCH (08:22)
[2020-03-27] MEDS: Gabapentin 300 MG CAPSULE GTUBE SCH ×3 (08:22→20:16)
[2020-03-27] MEDS: Furosemide 40 MG/4 ML VIAL IVP SCH ×2 (08:23→16:54)
[2020-03-27] MEDS: Chlorhexidine Rinse 15 ML MOUTHWASH MM SCH ×2 (08:23→20:15)
[2020-03-27] MEDS: Nystatin SUSP 5 ML UD.LIQ GTUBE SCH ×4 (08:23→20:15)
[2020-03-27] MEDS: Potassium Chloride Elixir 20 MEQ/15 ML UDC GTUBE SCH ×2 (08:23→20:15)
[2020-03-27] MEDS: ALPRAZolam 1 MG TABLET GTUBE SCH ×2 (09:00→20:16)
[2020-03-27] MEDS: propylthiouraciL 50 MG TABLET GTUBE SCH ×3 (09:00→20:15)
[2020-03-27] MEDS: Vancomycin 1,250 MG/262.5 ML IV.SOLN IVPB SCH (09:02)
[2020-03-27] MEDS ORDERED: Haloperidol Lactate 5 MG/ML VIAL IM PRN (09:45)
[2020-03-27] MEDS: Budesonide/Formoterol 80/4.5 1 PUFF INH IH SCH ×2 (09:56→19:49)
[2020-03-27] MEDS ORDERED: Docusate Oral Soln 100 MG/10 ML UDC GTUBE PRN (11:31)
[2020-03-27] MEDS ORDERED: Haloperidol Lactate 5 MG/ML VIAL IM ONE (11:39)
[2020-03-27] MEDS: Norepinephrine 4 MG/254 ML IV.SOLN IVC SCH (12:27)
[2020-03-28] MEDS: Artificial Tears SOLN 15 ML BOTTLE BOTH EYES SCH ×6 (03:22→23:38)
[2020-03-28] MEDS: Meropenem 1,000 MG in Water for inj. (sterile) 20 ML IVP SCH (03:23)
[2020-03-28 03:36] LABS: Basophils % 0.2 %; Hematocrit 36.8 % (35.3-44.9); Hemoglobin 12.1 g/dL (11.5-15.4); Immature Granulocytes % 1.1 % (0-4); Lymphocytes # 2.2 K/mcL (0.6-4.6); Lymphocytes % 36.5 %; Mean Corpuscular HGB Conc 32.9 g/dL (31.6-35.5); Mean Corpuscular Hemoglobin 32.7 pg (28.0-33.3); Mean Corpuscular Volume 99.5 fL (83.0-100.0); Mean Platelet Volume 10.4 fL (9.4-12.4); Monocytes # 0.4 K/mcL (0.0-1.3); Monocytes % 6.8 %; Neutrophils # 3.4 K/mcL (1.6-8.9); Nucleated Red Blood Cells 0.3 /100 WBC (0); Platelet Count 156 K/mcL (140-400); Red Cell Distribution Width 14.8 % (11.5-14.5); Segmented Neutrophils % 55.4 %; White Blood Count 6.1 K/mcL (4.3-11.1)
[2020-03-28 03:36] LABS: VBG Ionized Calcium 1.03 mmol/L (1.15-1.35)
[2020-03-28] MEDS: Calcium Gluconate 1gm/50mL 1 GM/50 ML BAG IVPB PRN (03:39)
[2020-03-28 03:45] LABS: BUN/Creatinine Ratio 68 (6-26); Blood Urea Nitrogen 32 mg/dL (8-23); Calcium 8.4 mg/dL (8.6-10.3); Carbon Dioxide 32 mEq/L (23-29); Chloride 101 mEq/L (98-107); Glucose 88 mg/dL (70-105); Magnesium 2.1 mg/dL (1.6-2.6); Osmolality,Calculated 294 (280-300); Phosphorous 3.6 mg/dL (2.7-4.5); Sodium 139 mEq/L (136-145); eGFR For African Americans > 60 (> 60); eGFR For Non-African Americans > 60 (> 60)
[2020-03-28 04:48] LABS: ABG Base Excess 7 mEq/L (-2 to 3); ABG HCO3 32 mEq/L (21-27); ABG Oxygen Saturation 93 % (95-98); ABG PCO2 47 mmHg (35-45); ABG PH 7.44 pH Units (7.32-7.45); ABG PO2 65 mmHg (85-104); ABG TCO2 34 mEq/L (20-26); Blood Gas Modality ASSIST CONTROL; Blood Gas VT 400 cc
[2020-03-28] MEDS: Budesonide/Formoterol 80/4.5 1 PUFF INH IH SCH ×2 (07:29→19:55)
[2020-03-28] MEDS: Furosemide 40 MG/4 ML VIAL IVP SCH ×2 (08:25→16:48)
[2020-03-28] MEDS: Chlorhexidine Rinse 15 ML MOUTHWASH MM SCH ×2 (08:25→20:31)
[2020-03-28] MEDS: Pantoprazole 40 MG VIAL IVP SCH (08:26)
[2020-03-28] MEDS: Potassium Chloride Elixir 20 MEQ/15 ML UDC GTUBE SCH ×2 (08:26→20:33)
[2020-03-28] MEDS: Nystatin SUSP 5 ML UD.LIQ GTUBE SCH ×4 (08:26→20:31)
[2020-03-28] MEDS: propylthiouraciL 50 MG TABLET GTUBE SCH ×3 (08:26→20:34)
[2020-03-28] MEDS: Gabapentin 300 MG CAPSULE GTUBE SCH ×3 (08:26→20:33)
[2020-03-28] MEDS: ALPRAZolam 1 MG TABLET GTUBE SCH ×2 (08:27→20:34)
[2020-03-28] MEDS: MethylPREDNISolone 40 MG/ML VIAL IVP SCH (08:27)
[2020-03-28] MEDS ORDERED: Ertapenem 1,000 MG in 0.9 % Sodium Chloride Mini Bag 100 ML IVPB SCH (11:00)
[2020-03-28] MEDS: *HR* Heparin 5,000 UNIT/ML VIAL SQ SCH ×3 (11:25→23:34)
[2020-03-28] MEDS: Meropenem 1,000 MG in 0.9 % Sodium Chloride Mini Bag 100 ML IVPB SCH ×2 (14:06→23:34)
[2020-03-28] MEDS: Norepinephrine 4 MG/254 ML IV.SOLN IVC SCH (15:21)
[2020-03-28] MEDS: Docusate Oral Soln 100 MG/10 ML UDC GTUBE SCH (20:32)
[2020-03-29] MEDS: Dexmedetomidine HCl 400 MCG/100 ML MLS IVC SCH (00:33)
[2020-03-29 04:03] LABS: ABG Base Excess 10 mEq/L (-2 to 3); ABG HCO3 34 mEq/L (21-27); ABG Oxygen Saturation 96 % (95-98); ABG PCO2 44 mmHg (35-45); ABG PO2 74 mmHg (85-104); ABG TCO2 35 mEq/L (20-26); Blood Gas VT 400 cc
[2020-03-29] MEDS: Artificial Tears SOLN 15 ML BOTTLE BOTH EYES SCH ×5 (04:05→20:21)
[2020-03-29 04:20] LABS: Hematocrit 36.9 % (35.3-44.9); Hemoglobin 12.2 g/dL (11.5-15.4); Mean Corpuscular HGB Conc 33.1 g/dL (31.6-35.5); Mean Corpuscular Hemoglobin 32.1 pg (28.0-33.3); Mean Corpuscular Volume 97.1 fL (83.0-100.0); Mean Platelet Volume 10.7 fL (9.4-12.4); Platelet Count 170 K/mcL (140-400); Red Cell Distribution Width 14.6 % (11.5-14.5); White Blood Count 8.4 K/mcL (4.3-11.1)
[2020-03-29 04:24] LABS: VBG Ionized Calcium 1.11 mmol/L (1.15-1.35)
[2020-03-29 04:40] LABS: BUN/Creatinine Ratio 86 (6-26); Blood Urea Nitrogen 32 mg/dL (8-23); Calcium 8.5 mg/dL (8.6-10.3); Carbon Dioxide 31 mEq/L (23-29); Chloride 100 mEq/L (98-107); Glucose 85 mg/dL (70-105); Osmolality,Calculated 292 (280-300); Phosphorous 3.2 mg/dL (2.7-4.5); Sodium 138 mEq/L (136-145); eGFR For African Americans > 60 (> 60); eGFR For Non-African Americans > 60 (> 60)
[2020-03-29] MEDS: *HR* Heparin 5,000 UNIT/ML VIAL SQ SCH ×3 (05:47→21:05)
[2020-03-29] MEDS: Budesonide/Formoterol 80/4.5 1 PUFF INH IH SCH ×2 (07:19→21:36)
[2020-03-29] MEDS ORDERED: acetaZOLAMIDE 500 MG in Water for inj. (sterile) 5 ML IVP ONE (07:32)
[2020-03-29] MEDS: propylthiouraciL 50 MG TABLET GTUBE SCH ×3 (07:52→19:55)
[2020-03-29] MEDS: Potassium Chloride Elixir 20 MEQ/15 ML UDC GTUBE SCH ×2 (07:53→19:54)
[2020-03-29] MEDS: Docusate Oral Soln 100 MG/10 ML UDC GTUBE SCH ×2 (07:53→19:55)
[2020-03-29] MEDS: MethylPREDNISolone 40 MG/ML VIAL IVP SCH (07:53)
[2020-03-29] MEDS: Nystatin SUSP 5 ML UD.LIQ GTUBE SCH ×4 (07:53→19:55)
[2020-03-29] MEDS: Chlorhexidine Rinse 15 ML MOUTHWASH MM SCH ×2 (07:53→19:55)
[2020-03-29] MEDS: Meropenem 1,000 MG in 0.9 % Sodium Chloride Mini Bag 100 ML IVPB SCH ×2 (07:54→16:38)
[2020-03-29] MEDS: Pantoprazole 40 MG VIAL IVP SCH (07:54)
[2020-03-29] MEDS: Gabapentin 300 MG CAPSULE GTUBE SCH ×3 (08:37→19:55)
[2020-03-29] MEDS: ALPRAZolam 1 MG TABLET GTUBE SCH ×2 (08:37→19:55)
[2020-03-29] MEDS: Norepinephrine 4 MG/254 ML IV.SOLN IVC SCH (11:27)
[2020-03-29 15:21] LABS: Red Blood Cell,CSF < 2000 RBC/mcL
[2020-03-29 15:22] LABS: Appearance,CSF Clear (Clear)
[2020-03-29 16:03] LABS: Glucose,CSF 72 mg/dL (40-70); Total Protein,CSF 71 mg/dL (15-45)
[2020-03-29] MEDS ORDERED: IVIG (wt based) Privigen 5 GM/50 ML INFUS..BTL IVC ONE (17:18)
[2020-03-29] MEDS ORDERED: Immune Glob, Gamma (Gammagard) 30 GM/300 ML INFUS..BTL IVC SCH (18:00)
[2020-03-29] MEDS: Immune Glob, Gamma (Gammagard) 5 GM/50 ML INFUS..BTL IVC SCH (18:18)
[2020-03-29] MEDS: Immune Glob, Gamma (Gammagard) 10 GM/100 ML INFUS..BTL IVC SCH (19:30)
[2020-03-29] MEDS: Immune Glob, Gamma (Gammagard) 20 GM/200 ML INFUS..BTL IVC SCH (20:18)
[2020-03-30] MEDS: FentaNYL (PF) 1,000 MCG/100 ML IV.SOLN IVC SCH ×2 (00:15→09:29)
[2020-03-30] MEDS: Meropenem 1,000 MG in 0.9 % Sodium Chloride Mini Bag 100 ML IVPB SCH ×4 (00:47→23:47)
[2020-03-30] MEDS: Artificial Tears SOLN 15 ML BOTTLE BOTH EYES SCH ×6 (04:00→20:20)
[2020-03-30 04:20] LABS: Hematocrit 37.2 % (35.3-44.9); Hemoglobin 11.9 g/dL (11.5-15.4); Mean Corpuscular Hemoglobin 31.8 pg (28.0-33.3); Mean Corpuscular Volume 99.5 fL (83.0-100.0); Platelet Count 158 K/mcL (140-400); Red Blood Count 3.74 M/mcL (3.82-4.97); Red Cell Distribution Width 14.4 % (11.5-14.5); White Blood Count 8.5 K/mcL (4.3-11.1)
[2020-03-30 04:41] LABS: BUN/Creatinine Ratio 90 (6-26); Blood Urea Nitrogen 28 mg/dL (8-23); Calcium 8.7 mg/dL (8.6-10.3); Carbon Dioxide 27 mEq/L (23-29); Chloride 102 mEq/L (98-107); Glucose 79 mg/dL (70-105); Osmolality,Calculated 282 (280-300); Phosphorous 3.4 mg/dL (2.7-4.5); Potassium 3.9 mEq/L (3.5-5.1); Sodium 134 mEq/L (136-145); eGFR For African Americans > 60 (> 60); eGFR For Non-African Americans > 60 (> 60)
[2020-03-30 04:58] LABS: ABG Base Excess 0 mEq/L (-2 to 3); ABG HCO3 25 mEq/L (21-27); ABG Oxygen Saturation 97 % (95-98); ABG PCO2 40 mmHg (35-45); ABG PO2 92 mmHg (85-104); ABG TCO2 26 mEq/L (20-26)
[2020-03-30] MEDS ORDERED: *HR* Dextrose 50 % in Water (Vial) 50 ML VIAL IVP ONE (06:36)
[2020-03-30] MEDS: *HR* Heparin 5,000 UNIT/ML VIAL SQ SCH ×3 (06:44→22:31)
[2020-03-30] MEDS: Budesonide/Formoterol 80/4.5 1 PUFF INH IH SCH ×2 (07:28→21:38)
[2020-03-30] MEDS: Dexmedetomidine HCl 400 MCG/100 ML MLS IVC SCH (07:52)
[2020-03-30] MEDS: Gabapentin 300 MG CAPSULE GTUBE SCH ×3 (08:01→20:18)
[2020-03-30] MEDS: Potassium Chloride Elixir 20 MEQ/15 ML UDC GTUBE SCH ×2 (08:01→20:18)
[2020-03-30] MEDS: propylthiouraciL 50 MG TABLET GTUBE SCH ×3 (08:01→20:19)
[2020-03-30] MEDS: Pantoprazole 40 MG VIAL IVP SCH (08:02)
[2020-03-30] MEDS: Docusate Oral Soln 100 MG/10 ML UDC GTUBE SCH ×2 (08:02→20:19)
[2020-03-30] MEDS: Chlorhexidine Rinse 15 ML MOUTHWASH MM SCH ×2 (08:03→20:18)
[2020-03-30] MEDS: Nystatin SUSP 5 ML UD.LIQ GTUBE SCH ×4 (08:03→20:19)
[2020-03-30] MEDS: MethylPREDNISolone 40 MG/ML VIAL IVP SCH (08:03)
[2020-03-30] MEDS: ALPRAZolam 1 MG TABLET GTUBE SCH ×2 (08:03→20:18)
[2020-03-30] MEDS: Furosemide 40 MG/4 ML VIAL IVP SCH (08:36)
[2020-03-30] MEDS: Norepinephrine 4 MG/254 ML IV.SOLN IVC SCH (12:00)
[2020-03-30] MEDS: Immune Glob, Gamma (Gammagard) 5 GM/50 ML INFUS..BTL IVC SCH (17:27)
[2020-03-30] MEDS: Immune Glob, Gamma (Gammagard) 10 GM/100 ML INFUS..BTL IVC SCH (18:12)
[2020-03-30] MEDS: Immune Glob, Gamma (Gammagard) 20 GM/200 ML INFUS..BTL IVC SCH (19:10)
[2020-03-31] MEDS ORDERED: Metoclopramide 10 MG/2 ML VIAL IVP PRN (01:52)
[2020-03-31 04:43] LABS: ABG Base Excess 1 mEq/L (-2 to 3); ABG HCO3 27 mEq/L (21-27); ABG Oxygen Saturation 96 % (95-98); ABG PCO2 45 mmHg (35-45); ABG PH 7.38 pH Units (7.32-7.45); ABG PO2 83 mmHg (85-104); ABG TCO2 28 mEq/L (20-26); Blood Gas Modality CPAP/PS; Blood Gas Pressure Support 10 cm H2O
[2020-03-31 06:55] LABS: Basophils % 0.4 %; Eosinophils % 0.1 %; Hematocrit 39.9 % (35.3-44.9); Hemoglobin 13.2 g/dL (11.5-15.4); Immature Granulocytes % 0.8 % (0-4); Lymphocytes # 2.4 K/mcL (0.6-4.6); Lymphocytes % 32.4 %; Mean Corpuscular HGB Conc 33.1 g/dL (31.6-35.5); Mean Corpuscular Hemoglobin 33.4 pg (28.0-33.3); Mean Platelet Volume 10.9 fL (9.4-12.4); Monocytes # 0.4 K/mcL (0.0-1.3); Monocytes % 5.9 %; Neutrophils # 4.4 K/mcL (1.6-8.9); Nucleated Red Blood Cells 0.3 /100 WBC (0); Platelet Count 180 K/mcL (140-400); Red Blood Count 3.95 M/mcL (3.82-4.97); Red Cell Distribution Width 14.5 % (11.5-14.5); Segmented Neutrophils % 60.4 %; White Blood Count 7.3 K/mcL (4.3-11.1)
[2020-03-31 07:00] LABS: VBG Ionized Calcium 1.18 mmol/L (1.15-1.35)
[2020-03-31] MEDS: Budesonide/Formoterol 80/4.5 1 PUFF INH IH SCH ×2 (07:17→19:31)
[2020-03-31 07:42] LABS: BUN/Creatinine Ratio 107 (6-26); Blood Urea Nitrogen 31 mg/dL (8-23); Calcium 8.7 mg/dL (8.6-10.3); Carbon Dioxide 28 mEq/L (23-29); Chloride 101 mEq/L (98-107); Glucose 73 mg/dL (70-105); Osmolality,Calculated 283 (280-300); Phosphorous 3.1 mg/dL (2.7-4.5); Potassium 3.8 mEq/L (3.5-5.1); Sodium 134 mEq/L (136-145); eGFR For African Americans > 60 (> 60); eGFR For Non-African Americans > 60 (> 60)
[2020-03-31] MEDS: Dexmedetomidine HCl 400 MCG/100 ML MLS IVC SCH ×2 (07:48→17:53)
[2020-03-31] MEDS: Artificial Tears SOLN 15 ML BOTTLE BOTH EYES SCH ×6 (07:49→23:36)
[2020-03-31] MEDS: *HR* Heparin 5,000 UNIT/ML VIAL SQ SCH ×3 (07:49→21:33)
[2020-03-31] MEDS: Docusate Oral Soln 100 MG/10 ML UDC GTUBE SCH ×2 (08:03→20:31)
[2020-03-31] MEDS: Chlorhexidine Rinse 15 ML MOUTHWASH MM SCH ×2 (08:03→20:30)
[2020-03-31] MEDS: Potassium Chloride Elixir 20 MEQ/15 ML UDC GTUBE SCH ×2 (08:03→20:31)
[2020-03-31] MEDS: Pantoprazole 40 MG VIAL IVP SCH (08:04)
[2020-03-31] MEDS: Meropenem 1,000 MG in 0.9 % Sodium Chloride Mini Bag 100 ML IVPB SCH ×3 (08:04→23:38)
[2020-03-31] MEDS: ALPRAZolam 1 MG TABLET GTUBE SCH ×2 (08:04→20:31)
[2020-03-31] MEDS: Furosemide 40 MG/4 ML VIAL IVP SCH (08:04)
[2020-03-31] MEDS: Nystatin SUSP 5 ML UD.LIQ GTUBE SCH ×4 (08:04→20:31)
[2020-03-31] MEDS: propylthiouraciL 50 MG TABLET GTUBE SCH ×3 (08:04→20:31)
[2020-03-31] MEDS: Gabapentin 300 MG CAPSULE GTUBE SCH ×3 (08:05→20:31)
[2020-03-31] MEDS: MethylPREDNISolone 40 MG/ML VIAL IVP SCH (08:05)
[2020-03-31] MEDS: Norepinephrine 4 MG/254 ML IV.SOLN IVC SCH (10:54)
[2020-03-31] MEDS: FentaNYL (PF) 1,000 MCG/100 ML IV.SOLN IVC SCH ×2 (15:42→17:51)
[2020-03-31] MEDS: Immune Glob, Gamma (Gammagard) 5 GM/50 ML INFUS..BTL IVC SCH (17:45)
[2020-03-31] MEDS: Immune Glob, Gamma (Gammagard) 10 GM/100 ML INFUS..BTL IVC SCH (18:46)
[2020-03-31] MEDS: Immune Glob, Gamma (Gammagard) 20 GM/200 ML INFUS..BTL IVC SCH (19:36)
[2020-04-01] MEDS: Artificial Tears SOLN 15 ML BOTTLE BOTH EYES SCH ×5 (04:05→21:24)
[2020-04-01 04:15] LABS: ABG Base Excess 4 mEq/L (-2 to 3); ABG HCO3 30 mEq/L (21-27); ABG Oxygen Saturation 89 % (95-98); ABG PCO2 51 mmHg (35-45); ABG PH 7.38 pH Units (7.32-7.45); ABG PO2 60 mmHg (85-104); ABG TCO2 31 mEq/L (20-26); Blood Gas Modality CPAP/PS; Blood Gas Pressure Support 10 cm H2O
[2020-04-01] MEDS: *HR* Heparin 5,000 UNIT/ML VIAL SQ SCH ×3 (05:21→21:23)
[2020-04-01] MEDS: Furosemide 40 MG/4 ML VIAL IVP SCH (06:40)
[2020-04-01] MEDS: Budesonide/Formoterol 80/4.5 1 PUFF INH IH SCH ×2 (07:26→19:35)
[2020-04-01 07:29] LABS: Basophils % 0.1 %; Eosinophils % 0.2 %; Hematocrit 38.6 % (35.3-44.9); Immature Granulocytes % 0.8 % (0-4); Lymphocytes # 2.2 K/mcL (0.6-4.6); Lymphocytes % 26.4 %; Mean Corpuscular HGB Conc 33.7 g/dL (31.6-35.5); Mean Corpuscular Hemoglobin 34.5 pg (28.0-33.3); Mean Corpuscular Volume 102.4 fL (83.0-100.0); Mean Platelet Volume 11.3 fL (9.4-12.4); Monocytes # 0.3 K/mcL (0.0-1.3); Monocytes % 4.1 %; Neutrophils # 5.7 K/mcL (1.6-8.9); Nucleated Red Blood Cells 0.2 /100 WBC (0); Platelet Count 159 K/mcL (140-400); Red Blood Count 3.77 M/mcL (3.82-4.97); Red Cell Distribution Width 16.3 % (11.5-14.5); Segmented Neutrophils % 68.4 %; White Blood Count 8.4 K/mcL (4.3-11.1)
[2020-04-01 07:31] LABS: VBG Ionized Calcium 1.09 mmol/L (1.15-1.35)
[2020-04-01] MEDS: Potassium Chloride Elixir 20 MEQ/15 ML UDC GTUBE SCH ×2 (08:44→21:25)
[2020-04-01] MEDS: Docusate Oral Soln 100 MG/10 ML UDC GTUBE SCH ×2 (08:44→21:23)
[2020-04-01] MEDS: Chlorhexidine Rinse 15 ML MOUTHWASH MM SCH ×2 (08:44→21:23)
[2020-04-01] MEDS: Meropenem 1,000 MG in 0.9 % Sodium Chloride Mini Bag 100 ML IVPB SCH ×2 (08:45→16:20)
[2020-04-01] MEDS: Gabapentin 300 MG CAPSULE GTUBE SCH ×3 (08:45→21:24)
[2020-04-01] MEDS: Nystatin SUSP 5 ML UD.LIQ GTUBE SCH ×4 (08:45→21:23)
[2020-04-01] MEDS: propylthiouraciL 50 MG TABLET GTUBE SCH ×3 (08:45→21:24)
[2020-04-01] MEDS: Pantoprazole 40 MG VIAL IVP SCH (08:45)
[2020-04-01] MEDS: ALPRAZolam 1 MG TABLET GTUBE SCH ×2 (08:45→21:24)
[2020-04-01] MEDS ORDERED: 0.9 % Sodium Chloride 1,000 ML ONE (16:50)
[2020-04-01 16:54] LABS: BUN/Creatinine Ratio 86 (6-26); Blood Urea Nitrogen 30 mg/dL (8-23); Carbon Dioxide 32 mEq/L (23-29); Chloride 98 mEq/L (98-107); Glucose 82 mg/dL (70-105); Osmolality,Calculated 283 (280-300); Phosphorous 2.9 mg/dL (2.7-4.5); Potassium 4.8 mEq/L (3.5-5.1); Sodium 134 mEq/L (136-145); eGFR For African Americans > 60 (> 60); eGFR For Non-African Americans > 60 (> 60)
[2020-04-01] MEDS ORDERED: *HR* Norepinephrine 4 MG/4 ML VIAL IVC ONE (16:55)
[2020-04-01] MEDS ORDERED: 0.9 % Sodium Chloride 250 ML ONE (16:56)
[2020-04-01] MEDS ORDERED: 0.9 % Sodium Chloride 1,000 ML IVC ONE (17:40)
[2020-04-01] MEDS ORDERED: Norepinephrine 4 MG/254 ML IV.SOLN IVC SCH (17:45)
[2020-04-01 19:08] LABS: VBG Ionized Calcium 0.41 mmol/L (1.15-1.35)
[2020-04-01 19:10] LABS: Basophils % 0.3 %; Eosinophils % 0.2 %; Hematocrit 38.7 % (35.3-44.9); Hemoglobin 12.8 g/dL (11.5-15.4); Immature Granulocytes % 1.3 % (0-4); Lymphocytes # 1.6 K/mcL (0.6-4.6); Lymphocytes % 17.7 %; Mean Corpuscular HGB Conc 33.1 g/dL (31.6-35.5); Mean Corpuscular Hemoglobin 33.2 pg (28.0-33.3); Mean Corpuscular Volume 100.3 fL (83.0-100.0); Mean Platelet Volume 11.3 fL (9.4-12.4); Monocytes # 0.6 K/mcL (0.0-1.3); Neutrophils # 6.9 K/mcL (1.6-8.9); Nucleated Red Blood Cells 0.3 /100 WBC (0); Platelet Count 240 K/mcL (140-400); Red Blood Count 3.86 M/mcL (3.82-4.97); Red Cell Distribution Width 15.8 % (11.5-14.5); Segmented Neutrophils % 74.5 %; White Blood Count 9.3 K/mcL (4.3-11.1)
[2020-04-01 19:11] LABS: INR 1.1; Prothrombin Time 13.1 Seconds (9.4-12.1)
[2020-04-01 19:29] LABS: Alanine Aminotransferase 37 Units/L (7-52); Albumin 2.8 g/dL (3.5-5.7); Albumin/Globulin Ratio 0.5 (1.1-2.2); Alkaline Phosphatase 110 Units/L (34-104); Aspartate Amino Transferase 36 Units/L (13-39); BUN/Creatinine Ratio 94 (6-26); Blood Urea Nitrogen 32 mg/dL (8-23); Calcium 8.8 mg/dL (8.6-10.3); Carbon Dioxide 30 mEq/L (23-29); Chloride 99 mEq/L (98-107); Creatine Kinase 17 Units/L (30-223); Globulin 5.2 g/dL (2.4-3.5); Glucose 99 mg/dL (70-105); Osmolality,Calculated 287 (280-300); Phosphorous 2.9 mg/dL (2.7-4.5); Potassium 4.3 mEq/L (3.5-5.1); Sodium 135 mEq/L (136-145); eGFR For African Americans > 60 (> 60); eGFR For Non-African Americans > 60 (> 60)
[2020-04-01 19:38] LABS: ABG Base Excess 7 mEq/L (-2 to 3); ABG HCO3 34 mEq/L (21-27); ABG Oxygen Saturation 100 % (95-98); ABG PCO2 57 mmHg (35-45); ABG PH 7.38 pH Units (7.32-7.45); ABG PO2 207 mmHg (85-104); ABG TCO2 36 mEq/L (20-26); Blood Gas Modality ASSIST CONTROL; Blood Gas VT 450 cc
[2020-04-01 19:41] LABS: Thyroid Stimulating Hormone 1.569 mcIU/mL (0.340-5.600)
[2020-04-01] MEDS: Norepinephrine 4 MG/254 ML IV.SOLN IVC SCH (21:08)
[2020-04-01] MEDS: Dexmedetomidine HCl 400 MCG/100 ML MLS IVC SCH (21:08)
[2020-04-01] MEDS: Immune Glob, Gamma (Gammagard) 5 GM/50 ML INFUS..BTL IVC SCH (21:38)
[2020-04-01] MEDS: Immune Glob, Gamma (Gammagard) 10 GM/100 ML INFUS..BTL IVC SCH (22:45)
[2020-04-01] MEDS: Immune Glob, Gamma (Gammagard) 20 GM/200 ML INFUS..BTL IVC SCH (23:42)
[2020-04-02] MEDS: Meropenem 1,000 MG in 0.9 % Sodium Chloride Mini Bag 100 ML IVPB SCH ×3 (02:12→16:09)
[2020-04-02] MEDS: Artificial Tears SOLN 15 ML BOTTLE BOTH EYES SCH ×5 (02:13→16:09)
[2020-04-02 04:01] LABS: ABG Base Excess 6 mEq/L (-2 to 3); ABG HCO3 32 mEq/L (21-27); ABG Oxygen Saturation 96 % (95-98); ABG PCO2 51 mmHg (35-45); ABG PO2 86 mmHg (85-104); ABG TCO2 33 mEq/L (20-26); Blood Gas Modality ASSIST CONTROL; Blood Gas VT 450 cc
[2020-04-02 05:29] LABS: Basophils % 0.3 %; Eosinophils % 0.2 %; Hematocrit 33.7 % (35.3-44.9); Hemoglobin 11.5 g/dL (11.5-15.4); Immature Granulocytes % 1.5 % (0-4); Lymphocytes # 2.3 K/mcL (0.6-4.6); Lymphocytes % 22.6 %; Mean Corpuscular HGB Conc 34.1 g/dL (31.6-35.5); Mean Corpuscular Hemoglobin 35.1 pg (28.0-33.3); Mean Corpuscular Volume 102.7 fL (83.0-100.0); Mean Platelet Volume 11.6 fL (9.4-12.4); Monocytes # 0.6 K/mcL (0.0-1.3); Monocytes % 5.6 %; Nucleated Red Blood Cells 0.3 /100 WBC (0); Platelet Count 253 K/mcL (140-400); Red Blood Count 3.28 M/mcL (3.82-4.97); Segmented Neutrophils % 69.8 %
[2020-04-02] MEDS: *HR* Heparin 5,000 UNIT/ML VIAL SQ SCH ×2 (05:41→14:35)
[2020-04-02 05:44] LABS: Alanine Aminotransferase 29 Units/L (7-52); Albumin 2.6 g/dL (3.5-5.7); Albumin/Globulin Ratio 0.4 (1.1-2.2); Alkaline Phosphatase 93 Units/L (34-104); Aspartate Amino Transferase 26 Units/L (13-39); BUN/Creatinine Ratio 144 (6-26); Bilirubin,Total 0.8 mg/dL (0.3-1.0); Blood Urea Nitrogen 39 mg/dL (8-23); Calcium 8.5 mg/dL (8.6-10.3); Carbon Dioxide 31 mEq/L (23-29); Chloride 98 mEq/L (98-107); Globulin 5.8 g/dL (2.4-3.5); Glucose 94 mg/dL (70-105); Magnesium 1.9 mg/dL (1.6-2.6); Osmolality,Calculated 287 (280-300); Phosphorous 2.9 mg/dL (2.7-4.5); Potassium 4.1 mEq/L (3.5-5.1); Sodium 134 mEq/L (136-145); Total Protein 8.4 g/dL (6.4-8.9); Troponin I 0.03 ng/mL (< 0.04); eGFR For African Americans > 60 (> 60); eGFR For Non-African Americans > 60 (> 60)
[2020-04-02 05:47] LABS: VBG Ionized Calcium 1.14 mmol/L (1.15-1.35)
[2020-04-02] MEDS: Budesonide/Formoterol 80/4.5 1 PUFF INH IH SCH (07:26)
[2020-04-02] MEDS: Potassium Chloride Elixir 20 MEQ/15 ML UDC GTUBE SCH (08:00)
[2020-04-02] MEDS: Gabapentin 300 MG CAPSULE GTUBE SCH ×2 (08:00→14:35)
[2020-04-02] MEDS: propylthiouraciL 50 MG TABLET GTUBE SCH ×2 (08:00→14:35)
[2020-04-02] MEDS: Chlorhexidine Rinse 15 ML MOUTHWASH MM SCH (08:00)
[2020-04-02] MEDS: Docusate Oral Soln 100 MG/10 ML UDC GTUBE SCH (08:00)
[2020-04-02] MEDS: Nystatin SUSP 5 ML UD.LIQ GTUBE SCH (08:00)
[2020-04-02] MEDS: ALPRAZolam 1 MG TABLET GTUBE SCH (08:00)
[2020-04-02] MEDS: Pantoprazole 40 MG VIAL IVP SCH (08:01)
[2020-04-02] MEDS: Furosemide 40 MG/4 ML VIAL IVP SCH (08:01)
[2020-04-02] MEDS: FentaNYL (PF) 1,000 MCG/100 ML IV.SOLN IVC SCH (12:00)
[2020-04-02 16:19] VITALS: BP 102/79
== END 2020-04-02 16:43 | disposition short-term general hospital (02) | DRG 720 ==
LOC: 3ANU 22:07 → EMEROOARM 22:07 → SUATTDRO 03-21 02:27 → 3ANU 03-21 03:22 → 2NNU 03-23 08:29 → ICNU 03-23 12:18
PROVIDERS: ADMIT Internal Medicine; ATTEND Internal Medicine